=== PATIENT | female | born 1945 | race Caucasian/White ===

== ENCOUNTER → 2017-12-26 | Outpatient (CLI) | payer MEDICARE | LOC: M WUC 12:08 | DX: J11.1 Influenza due to unidentified influenza virus with other respiratory manifestations (principal); J20.9 Acute bronchitis, unspecified | CPT/HCPCS: 71046 ==

== ENCOUNTER 2018-01-03 08:40 | Inpatient (IN) | payer MEDICARE ==
[2018-01-03] MEDS: SENOKOT S TAB PO ×2 (09:00→21:28)
[2018-01-03] MEDS: LISINOPRIL 20 MG TAB PO ×2 (09:00→21:00)
[2018-01-03 10:50] LABS: BASO % 0.1 % (0.0-1.0); EOS # 0.3 10^3/uL (0.0-0.50); HEMATOCRIT 34.9 % (36.0-47.0); HEMOGLOBIN 11.1 g/dl (12.0-16.0); IMMATURE GRANULOCYTE % 0.6 % (0-3.0); LYMPH % 7.5 % (24.0-44.0); MEAN CORPUSCULAR HEMOGLOBIN 30.7 pg (27.0-33.0); MEAN CORPUSCULAR HGB CONC 31.8 g/dl (32.0-36.5); MEAN CORPUSCULAR VOLUME 96.7 fl (80.0-96.0); MONO # 0.6 10^3/uL (0.0-0.8); MONO % 4.7 % (0.0-5.0); NEUTROPHILS # 11.6 10^3/uL (1.8-7.7); NEUTROPHILS % 85.1 % (36.0-66.0); PLATELET COUNT, AUTOMATED 168 10^3/uL (150-450); RED BLOOD COUNT 3.61 10^6/uL (4.00-5.40); RED CELL DISTRIBUTION WIDTH 13.3 % (11.5-14.5); WHITE BLOOD COUNT 13.7 10^3/uL (4.0-10.0)
[2018-01-03] MEDS: ACETAMINOPHEN TAB 650MG DOSE (2X325MG) PO (10:51)
[2018-01-03 11:02] LABS: ANION GAP 9 MEQ/L (8-16); BLOOD UREA NITROGEN 15 MG/DL (7-18); CALCIUM LEVEL 8.4 MG/DL (8.8-10.2); CARBON DIOXIDE LEVEL 29 MEQ/L (21-32); CHLORIDE LEVEL 104 MEQ/L (98-107); CREATININE FOR GFR 0.92 MG/DL (0.55-1.30); GLOMERULAR FILTRATION RATE > 60.0 (>39); GLUCOSE, FASTING 116 MG/DL (70-100); SODIUM LEVEL 142 MEQ/L (136-145)
[2018-01-03] MEDS: LevoFLOXacin IV 750 MG in APPROPRIATE DILUENT 1 EA IV (11:47)
[2018-01-03] MEDS ORDERED: ACETAMINOPHEN TAB 650MG DOSE (2X325MG) PO (13:15)
[2018-01-03] MEDS ORDERED: ALBUTEROL SULFATE 2.5 MG/0.5 ML INH NEB SOLN INH (13:15)
[2018-01-03] MEDS ORDERED: ONDANSETRON 4MG/2ML VIAL (J2405) IV (13:15)
[2018-01-03] MEDS: HYDROmorphone HCL 1 MG/ML SYRINGE (J1170) IV (13:30)
[2018-01-03] MEDS: PERCOCET 5MG/325MG TAB PO ×3 (13:31→21:29)
[2018-01-03] MEDS: AMITRIPTYLINE 25 MG TAB PO (16:46)
[2018-01-03] MEDS: GABAPENTIN 300 MG CAP PO ×2 (16:46→21:28)
[2018-01-03] MEDS: LEVOTHYROXINE 25MCG TABLET (0.025MG) PO (16:46)
[2018-01-03] MEDS: OMEPRAZOLE 20 MG CAP PO (16:46)
[2018-01-03] MEDS: ASPIRIN 81 MG ENTERIC TAB PO (16:46)
[2018-01-03] MEDS: FERROUS SULFATE 325MG TAB PO (16:46)
[2018-01-03] MEDS: METOPROLOL SUCC (TopROL XL) 50MG **XL** TAB PO (16:47)
[2018-01-03] MEDS: DULoxetine 30 MG CAP (CYMBALTA) PO (16:47)
[2018-01-03] MEDS: ATORVASTATIN 20 MG TAB PO (16:47)
[2018-01-03] MEDS: ENOXAPARIN 40 MG/0.4 ML SYRINGE (J1650) SC (16:48)
[2018-01-03] MEDS: MEROPENEM INJ 1 GM in APPROPRIATE DILUENT 1 EA IV (16:49)
[2018-01-03] MEDS: IPRATROPIUM 0.5MG/ALBUTEROL 2.5MG INH SOL UD 3ML (DUONEB)(J7620) NEB (20:00)
[2018-01-04] MEDS: PERCOCET 5MG/325MG TAB PO ×4 (02:29→21:08)
[2018-01-04] MEDS: MEROPENEM INJ 1 GM in APPROPRIATE DILUENT 1 EA IV ×3 (02:30→18:00)
[2018-01-04] MEDS: LEVOTHYROXINE 25MCG TABLET (0.025MG) PO (06:15)
[2018-01-04] MEDS: IPRATROPIUM 0.5MG/ALBUTEROL 2.5MG INH SOL UD 3ML (DUONEB)(J7620) NEB ×3 (08:00→20:23)
[2018-01-04] MEDS: OMEPRAZOLE 20 MG CAP PO (09:00)
[2018-01-04] MEDS: METOPROLOL SUCC (TopROL XL) 50MG **XL** TAB PO (09:00)
[2018-01-04] MEDS: ASPIRIN 81 MG ENTERIC TAB PO (09:00)
[2018-01-04] MEDS: ATORVASTATIN 20 MG TAB PO (09:00)
[2018-01-04] MEDS: AMITRIPTYLINE 25 MG TAB PO (09:00)
[2018-01-04] MEDS: ENOXAPARIN 40 MG/0.4 ML SYRINGE (J1650) SC (09:00)
[2018-01-04] MEDS: GABAPENTIN 300 MG CAP PO ×3 (09:00→21:07)
[2018-01-04] MEDS: FERROUS SULFATE 325MG TAB PO (09:00)
[2018-01-04] MEDS: SENOKOT S TAB PO ×2 (09:00→21:09)
[2018-01-04] MEDS: LISINOPRIL 20 MG TAB PO ×2 (09:00→21:09)
[2018-01-04] MEDS: DULoxetine 30 MG CAP (CYMBALTA) PO (09:00)
[2018-01-04] MEDS ORDERED: LevoFLOXacin IV 750 MG in APPROPRIATE DILUENT 1 EA IV (12:00)
[2018-01-04] MEDS: KETOROLAC 30 MG/ML VIAL (J1885) IV (21:07)
[2018-01-04] MEDS: guaiFENesin DM LIQ 10ML UD PO (22:53)
[2018-01-05] MEDS: MEROPENEM INJ 1 GM in APPROPRIATE DILUENT 1 EA IV ×3 (01:36→17:34)
[2018-01-05] MEDS: NORCO, ANEXSIA 5/325MG TABLET (HYDROcodone/ACETAMINOPHEN) PO ×4 (01:37→21:36)
[2018-01-05] MEDS: LEVOTHYROXINE 25MCG TABLET (0.025MG) PO (06:08)
[2018-01-05] MEDS: PERCOCET 5MG/325MG TAB PO (06:09)
[2018-01-05 06:14] LABS: HEMATOCRIT 30.7 % (36.0-47.0); HEMOGLOBIN 9.7 g/dl (12.0-16.0); MEAN CORPUSCULAR HEMOGLOBIN 30.6 pg (27.0-33.0); MEAN CORPUSCULAR HGB CONC 31.6 g/dl (32.0-36.5); MEAN CORPUSCULAR VOLUME 96.8 fl (80.0-96.0); PLATELET COUNT, AUTOMATED 137 10^3/uL (150-450); RED BLOOD COUNT 3.17 10^6/uL (4.00-5.40); RED CELL DISTRIBUTION WIDTH 13.2 % (11.5-14.5); WHITE BLOOD COUNT 4.4 10^3/uL (4.0-10.0)
[2018-01-05 06:47] LABS: ANION GAP 6 MEQ/L (8-16); BLOOD UREA NITROGEN 17 MG/DL (7-18); CALCIUM LEVEL 8.5 MG/DL (8.8-10.2); CARBON DIOXIDE LEVEL 30 MEQ/L (21-32); CHLORIDE LEVEL 108 MEQ/L (98-107); CREATININE FOR GFR 1.02 MG/DL (0.55-1.30); GLOMERULAR FILTRATION RATE 56.9 (>39); GLUCOSE, FASTING 98 MG/DL (70-100); POTASSIUM SERUM 3.8 MEQ/L (3.5-5.1); SODIUM LEVEL 144 MEQ/L (136-145)
[2018-01-05] MEDS: IPRATROPIUM 0.5MG/ALBUTEROL 2.5MG INH SOL UD 3ML (DUONEB)(J7620) NEB ×4 (07:39→20:07)
[2018-01-05] MEDS: AMITRIPTYLINE 25 MG TAB PO (09:28)
[2018-01-05] MEDS: DULoxetine 30 MG CAP (CYMBALTA) PO (09:28)
[2018-01-05] MEDS: ASPIRIN 81 MG ENTERIC TAB PO (09:28)
[2018-01-05] MEDS: FERROUS SULFATE 325MG TAB PO (09:29)
[2018-01-05] MEDS: OMEPRAZOLE 20 MG CAP PO (09:29)
[2018-01-05] MEDS: ATORVASTATIN 20 MG TAB PO (09:29)
[2018-01-05] MEDS: GABAPENTIN 300 MG CAP PO ×3 (09:29→20:19)
[2018-01-05] MEDS: LISINOPRIL 20 MG TAB PO ×2 (09:33→20:20)
[2018-01-05] MEDS: SENOKOT S TAB PO ×2 (09:33→20:20)
[2018-01-05] MEDS: METOPROLOL SUCC (TopROL XL) 50MG **XL** TAB PO (09:35)
[2018-01-05] MEDS: ENOXAPARIN 40 MG/0.4 ML SYRINGE (J1650) SC (09:35)
[2018-01-05] MEDS: KETOROLAC 30 MG/ML VIAL (J1885) IV ×2 (09:37→20:20)
[2018-01-05] MEDS: BENZONATATE 100 MG CAP PO ×2 (13:28→21:30)
[2018-01-06] MEDS: MEROPENEM INJ 1 GM in APPROPRIATE DILUENT 1 EA IV ×3 (01:42→17:49)
[2018-01-06] MEDS: NORCO, ANEXSIA 5/325MG TABLET (HYDROcodone/ACETAMINOPHEN) PO ×5 (01:47→20:33)
[2018-01-06] MEDS: BENZONATATE 100 MG CAP PO ×2 (05:47→15:16)
[2018-01-06] MEDS: LEVOTHYROXINE 25MCG TABLET (0.025MG) PO (05:47)
[2018-01-06 06:46] LABS: HEMOGLOBIN 9.8 g/dl (12.0-16.0); MEAN CORPUSCULAR HEMOGLOBIN 30.7 pg (27.0-33.0); MEAN CORPUSCULAR HGB CONC 31.6 g/dl (32.0-36.5); MEAN CORPUSCULAR VOLUME 97.2 fl (80.0-96.0); PLATELET COUNT, AUTOMATED 140 10^3/uL (150-450); RED BLOOD COUNT 3.19 10^6/uL (4.00-5.40); RED CELL DISTRIBUTION WIDTH 13.2 % (11.5-14.5); WHITE BLOOD COUNT 3.5 10^3/uL (4.0-10.0)
[2018-01-06 06:55] LABS: ANION GAP 3 MEQ/L (8-16); BLOOD UREA NITROGEN 18 MG/DL (7-18); CALCIUM LEVEL 8.4 MG/DL (8.8-10.2); CARBON DIOXIDE LEVEL 33 MEQ/L (21-32); CHLORIDE LEVEL 109 MEQ/L (98-107); CREATININE FOR GFR 0.82 MG/DL (0.55-1.30); GLOMERULAR FILTRATION RATE > 60.0 (>39); GLUCOSE, FASTING 87 MG/DL (70-100); POTASSIUM SERUM 4.5 MEQ/L (3.5-5.1); SODIUM LEVEL 145 MEQ/L (136-145)
[2018-01-06] MEDS: IPRATROPIUM 0.5MG/ALBUTEROL 2.5MG INH SOL UD 3ML (DUONEB)(J7620) NEB ×4 (07:26→20:00)
[2018-01-06] MEDS: ASPIRIN 81 MG ENTERIC TAB PO (09:23)
[2018-01-06] MEDS: METOPROLOL SUCC (TopROL XL) 50MG **XL** TAB PO (09:23)
[2018-01-06] MEDS: ENOXAPARIN 40 MG/0.4 ML SYRINGE (J1650) SC (09:23)
[2018-01-06] MEDS: SENOKOT S TAB PO ×2 (09:23→20:33)
[2018-01-06] MEDS: LISINOPRIL 20 MG TAB PO ×2 (09:23→20:34)
[2018-01-06] MEDS: FERROUS SULFATE 325MG TAB PO (09:24)
[2018-01-06] MEDS: OMEPRAZOLE 20 MG CAP PO (09:24)
[2018-01-06] MEDS: GABAPENTIN 300 MG CAP PO ×3 (09:24→20:31)
[2018-01-06] MEDS: AMITRIPTYLINE 25 MG TAB PO (09:24)
[2018-01-06] MEDS: ATORVASTATIN 20 MG TAB PO (09:24)
[2018-01-06] MEDS: DULoxetine 30 MG CAP (CYMBALTA) PO (09:24)
[2018-01-06] MEDS: KETOROLAC 30 MG/ML VIAL (J1885) IV (23:45)
[2018-01-07] MEDS: NORCO, ANEXSIA 5/325MG TABLET (HYDROcodone/ACETAMINOPHEN) PO ×5 (01:02→23:27)
[2018-01-07] MEDS: MEROPENEM INJ 1 GM in APPROPRIATE DILUENT 1 EA IV ×3 (01:03→16:51)
[2018-01-07] MEDS: LEVOTHYROXINE 25MCG TABLET (0.025MG) PO (06:18)
[2018-01-07 06:29] LABS: HEMATOCRIT 29.7 % (36.0-47.0); HEMOGLOBIN 9.6 g/dl (12.0-16.0); MEAN CORPUSCULAR HEMOGLOBIN 31.4 pg (27.0-33.0); MEAN CORPUSCULAR HGB CONC 32.3 g/dl (32.0-36.5); MEAN CORPUSCULAR VOLUME 97.1 fl (80.0-96.0); PLATELET COUNT, AUTOMATED 148 10^3/uL (150-450); RED BLOOD COUNT 3.06 10^6/uL (4.00-5.40); RED CELL DISTRIBUTION WIDTH 13.2 % (11.5-14.5); WHITE BLOOD COUNT 3.9 10^3/uL (4.0-10.0)
[2018-01-07 06:48] LABS: ANION GAP 5 MEQ/L (8-16); BLOOD UREA NITROGEN 16 MG/DL (7-18); CALCIUM LEVEL 8.3 MG/DL (8.8-10.2); CARBON DIOXIDE LEVEL 32 MEQ/L (21-32); CHLORIDE LEVEL 107 MEQ/L (98-107); CREATININE FOR GFR 0.82 MG/DL (0.55-1.30); GLOMERULAR FILTRATION RATE > 60.0 (>39); GLUCOSE, FASTING 78 MG/DL (70-100); POTASSIUM SERUM 4.3 MEQ/L (3.5-5.1); SODIUM LEVEL 144 MEQ/L (136-145)
[2018-01-07] MEDS: IPRATROPIUM 0.5MG/ALBUTEROL 2.5MG INH SOL UD 3ML (DUONEB)(J7620) NEB ×4 (08:00→21:23)
[2018-01-07] MEDS: ATORVASTATIN 20 MG TAB PO (09:09)
[2018-01-07] MEDS: METOPROLOL SUCC (TopROL XL) 50MG **XL** TAB PO (09:09)
[2018-01-07] MEDS: ASPIRIN 81 MG ENTERIC TAB PO (09:10)
[2018-01-07] MEDS: GABAPENTIN 300 MG CAP PO ×3 (09:10→21:45)
[2018-01-07] MEDS: OMEPRAZOLE 20 MG CAP PO (09:10)
[2018-01-07] MEDS: DULoxetine 30 MG CAP (CYMBALTA) PO (09:11)
[2018-01-07] MEDS: SENOKOT S TAB PO ×2 (09:11→21:48)
[2018-01-07] MEDS: FERROUS SULFATE 325MG TAB PO (09:11)
[2018-01-07] MEDS: ENOXAPARIN 40 MG/0.4 ML SYRINGE (J1650) SC (09:11)
[2018-01-07] MEDS: AMITRIPTYLINE 25 MG TAB PO (09:11)
[2018-01-07] MEDS: LISINOPRIL 20 MG TAB PO ×2 (09:11→21:48)
[2018-01-08] MEDS: guaiFENesin DM LIQ 10ML UD PO (01:00)
[2018-01-08] MEDS: BENZONATATE 100 MG CAP PO (01:00)
[2018-01-08] MEDS: MEROPENEM INJ 1 GM in APPROPRIATE DILUENT 1 EA IV ×2 (01:01→10:05)
[2018-01-08] MEDS: NORCO, ANEXSIA 5/325MG TABLET (HYDROcodone/ACETAMINOPHEN) PO (03:31)
[2018-01-08 06:22] LABS: HEMATOCRIT 32.6 % (36.0-47.0); HEMOGLOBIN 10.4 g/dl (12.0-16.0); MEAN CORPUSCULAR HEMOGLOBIN 30.7 pg (27.0-33.0); MEAN CORPUSCULAR HGB CONC 31.9 g/dl (32.0-36.5); MEAN CORPUSCULAR VOLUME 96.2 fl (80.0-96.0); PLATELET COUNT, AUTOMATED 150 10^3/uL (150-450); RED BLOOD COUNT 3.39 10^6/uL (4.00-5.40)
[2018-01-08 06:42] LABS: ANION GAP 4 MEQ/L (8-16); BLOOD UREA NITROGEN 15 MG/DL (7-18); CARBON DIOXIDE LEVEL 34 MEQ/L (21-32); CHLORIDE LEVEL 104 MEQ/L (98-107); CREATININE FOR GFR 0.83 MG/DL (0.55-1.30); GLOMERULAR FILTRATION RATE > 60.0 (>39); GLUCOSE, FASTING 91 MG/DL (70-100); POTASSIUM SERUM 4.7 MEQ/L (3.5-5.1); SODIUM LEVEL 142 MEQ/L (136-145)
[2018-01-08] MEDS: LEVOTHYROXINE 25MCG TABLET (0.025MG) PO (06:52)
[2018-01-08] MEDS: IPRATROPIUM 0.5MG/ALBUTEROL 2.5MG INH SOL UD 3ML (DUONEB)(J7620) NEB (08:00)
[2018-01-08] MEDS: ATORVASTATIN 20 MG TAB PO (10:05)
[2018-01-08] MEDS: GABAPENTIN 300 MG CAP PO (10:05)
[2018-01-08] MEDS: OMEPRAZOLE 20 MG CAP PO (10:06)
[2018-01-08] MEDS: LISINOPRIL 20 MG TAB PO (10:06)
[2018-01-08] MEDS: METOPROLOL SUCC (TopROL XL) 50MG **XL** TAB PO (10:06)
[2018-01-08] MEDS: FERROUS SULFATE 325MG TAB PO (10:07)
[2018-01-08] MEDS: ASPIRIN 81 MG ENTERIC TAB PO (10:07)
[2018-01-08] MEDS: DULoxetine 30 MG CAP (CYMBALTA) PO (10:07)
[2018-01-08] MEDS: AMITRIPTYLINE 25 MG TAB PO (10:08)
[2018-01-08] MEDS: SENOKOT S TAB PO (10:08)
[2018-01-08] MEDS: hydroCHLOROthiazide 12.5 MG CAPSULE PO (10:08)
[2018-01-08] MEDS: ENOXAPARIN 40 MG/0.4 ML SYRINGE (J1650) SC (10:08)
== END 2018-01-08 11:38 | disposition home or self-care (01) | DRG 195 ==
LOC: M ED 08:40 → M ED INP 15:29 → M MSPAV 15:32
DX: J18.9 Pneumonia, unspecified organism (principal); B97.4 Respiratory syncytial virus as the cause of diseases classified elsewhere; I10 Essential (primary) hypertension; M79.7 Fibromyalgia; Z90.710 Acquired absence of both cervix and uterus; Z96.652 Presence of left artificial knee joint; Z79.82 Long term (current) use of aspirin; Z79.899 Other long term (current) drug therapy; Z88.0 Allergy status to penicillin; Z88.1 Allergy status to other antibiotic agents; Z88.2 Allergy status to sulfonamides; Z88.5 Allergy status to narcotic agent

== ENCOUNTER → 2018-01-16 | Outpatient (REF) | payer MEDICARE ==
[2018-01-16 13:18] LABS: BASO # 0.1 10^3/uL (0.0-0.2); BASO % 0.8 % (0.0-1.0); EOS # 2.4 10^3/uL (0.0-0.50); HEMATOCRIT 39.8 % (36.0-47.0); HEMOGLOBIN 12.6 g/dl (12.0-16.0); IMMATURE GRANULOCYTE % 1.3 % (0-3.0); LYMPH # 1.8 10^3/uL (1.5-4.5); LYMPH % 19.6 % (24.0-44.0); MEAN CORPUSCULAR HEMOGLOBIN 31.1 pg (27.0-33.0); MEAN CORPUSCULAR HGB CONC 31.7 g/dl (32.0-36.5); MEAN CORPUSCULAR VOLUME 98.3 fl (80.0-96.0); MONO # 0.6 10^3/uL (0.0-0.8); MONO % 6.5 % (0.0-5.0); NEUTROPHILS # 4.2 10^3/uL (1.8-7.7); NEUTROPHILS % 45.4 % (36.0-66.0); PLATELET COUNT, AUTOMATED 270 10^3/uL (150-450); RED BLOOD COUNT 4.05 10^6/uL (4.00-5.40); RED CELL DISTRIBUTION WIDTH 13.5 % (11.5-14.5); WHITE BLOOD COUNT 9.1 10^3/uL (4.0-10.0)
[2018-01-16 13:50] LABS: ADD MANUAL DIFFER NO; DIFF SLIDE NUMBER 179; EOS % 26.4 % (0.0-3.0); POSITIVE DIFF POS FLAG
[2018-01-16 13:59] LABS: ALBUMIN 3.9 GM/DL (3.2-5.2); ALBUMIN/GLOBULIN RATIO 1.22 (1.00-1.93); ALKALINE PHOSPHATASE 121 U/L (45-117); ALT/SGPT 33 U/L (12-78); ANION GAP 4 MEQ/L (8-16); AST/SGOT 22 U/L (7-37); BILIRUBIN,TOTAL 0.5 MG/DL (0.2-1.0); BLOOD UREA NITROGEN 18 MG/DL (7-18); CALCIUM LEVEL 8.9 MG/DL (8.8-10.2); CARBON DIOXIDE LEVEL 33 MEQ/L (21-32); CHLORIDE LEVEL 104 MEQ/L (98-107); CHOLESTEROL LEVEL 162 MG/DL (<200); CHOLESTEROL RISK RATIO 4.153 (<5); CREATININE FOR GFR 0.94 MG/DL (0.55-1.30); FREE T4 0.99 NG/DL (0.76-1.46); GLOMERULAR FILTRATION RATE > 60.0 (>39); GLUCOSE, FASTING 89 MG/DL (70-100); HDL CHOLESTEROL 39 MG/DL (>40); IRON (FE) 114 UG/DL (50-170); LDL CHOLESTEROL 81.2 MG/DL (<100); NON-HDL-C 123 MG/DL; PERCENT SATURATION 38.4 % (13.2-45.0); POTASSIUM SERUM 4.4 MEQ/L (3.5-5.1); SODIUM LEVEL 141 MEQ/L (136-145); TOTAL IRON BINDING CAPACITY 297 UG/DL (250-450); TOTAL PROTEIN 7.1 GM/DL (6.4-8.2); TRIGLYCERIDES LEVEL 209 MG/DL (<150)
== END ==
LOC: M SFHCPLAZ 10:48
DX: Z00.00 Encounter for general adult medical examination without abnormal findings (principal); D50.9 Iron deficiency anemia, unspecified; E78.5 Hyperlipidemia, unspecified; I10 Essential (primary) hypertension; E03.9 Hypothyroidism, unspecified
CPT/HCPCS: 83550

== ENCOUNTER → 2018-01-20 | Outpatient (CLI) | payer MEDICARE | LOC: M WHC 12:52 | DX: Z12.31 Encounter for screening mammogram for malignant neoplasm of breast (principal); Z78.0 Asymptomatic menopausal state | CPT/HCPCS: 77067 ==

== ENCOUNTER → 2018-01-30 | Outpatient (REF) | payer MEDICARE ==
[2018-01-30 16:11] LABS: MALB URINE SIEMENS 36.8 MG/L; MAU/CREAT RATIO 18.9 MCG/MG (0.0-30.0)
== END ==
LOC: M SFHCPLAZ 15:29
DX: Z12.31 Encounter for screening mammogram for malignant neoplasm of breast (principal); E78.5 Hyperlipidemia, unspecified; G43.109 Migraine with aura, not intractable, without status migrainosus; N18.3 Chronic kidney disease, stage 3 (moderate); I12.9 Hypertensive chronic kidney disease with stage 1 through stage 4 chronic kidney disease, or unspecified chronic kidney disease; D50.9 Iron deficiency anemia, unspecified; J44.9 Chronic obstructive pulmonary disease, unspecified; M79.7 Fibromyalgia; E03.9 Hypothyroidism, unspecified
CPT/HCPCS: 82043

== ENCOUNTER → 2018-03-03 | Outpatient (REF) | payer MEDICARE ==
[2018-03-03 15:39] LABS: BASO % 0.4 % (0.0-1.0); EOS # 0.6 10^3/uL (0.0-0.50); EOS % 6.1 % (0.0-3.0); HEMOGLOBIN 11.2 g/dl (12.0-15.5); IMMATURE GRANULOCYTE % 0.3 % (0-3.0); LYMPH # 1.3 10^3/uL (1.5-4.5); LYMPH % 14.6 % (24.0-44.0); MEAN CORPUSCULAR HEMOGLOBIN 30.9 pg (27.0-33.0); MEAN CORPUSCULAR VOLUME 96.7 fl (80.0-96.0); MONO # 0.7 10^3/uL (0.0-0.8); MONO % 8.1 % (0.0-5.0); NEUTROPHILS # 6.4 10^3/uL (1.8-7.7); NEUTROPHILS % 70.5 % (36.0-66.0); PLATELET COUNT, AUTOMATED 202 10^3/uL (150-450); RED BLOOD COUNT 3.62 10^6/uL (4.00-5.40); RED CELL DISTRIBUTION WIDTH 12.6 % (11.5-14.5)
[2018-03-03 16:03] LABS: ALBUMIN 3.8 GM/DL (3.2-5.2); ALBUMIN/GLOBULIN RATIO 1.19 (1.00-1.93); ALKALINE PHOSPHATASE 101 U/L (45-117); ALT/SGPT 28 U/L (12-78); ANION GAP 7 MEQ/L (8-16); AST/SGOT 27 U/L (7-37); BILIRUBIN,TOTAL 0.5 MG/DL (0.2-1.0); BLOOD UREA NITROGEN 36 MG/DL (7-18); CALCIUM LEVEL 9.4 MG/DL (8.8-10.2); CARBON DIOXIDE LEVEL 30 MEQ/L (21-32); CHLORIDE LEVEL 105 MEQ/L (98-107); CREATININE FOR GFR 1.37 MG/DL (0.55-1.30); GLOMERULAR FILTRATION RATE 40.5 (>39); GLUCOSE, FASTING 81 MG/DL (70-100); POTASSIUM SERUM 3.6 MEQ/L (3.5-5.1); SODIUM LEVEL 142 MEQ/L (136-145)
== END ==
LOC: M SFHCPLAZ 14:03
DX: J06.9 Acute upper respiratory infection, unspecified (principal)
CPT/HCPCS: 80053

== ENCOUNTER → 2018-03-03 | Outpatient (CLI) | payer MEDICARE | LOC: M SMT 14:29 | DX: J06.9 Acute upper respiratory infection, unspecified (principal) | CPT/HCPCS: 71046; 80053 ==

== ENCOUNTER → 2018-04-14 | Outpatient (REF) | payer MEDICARE ==
[2018-04-14 12:43] LABS: BASO % 0.2 % (0.0-1.0); EOS # 0.3 10^3/uL (0.0-0.50); EOS % 3.2 % (0.0-3.0); HEMATOCRIT 38.8 % (36.0-47.0); HEMOGLOBIN 12.5 g/dl (12.0-15.5); IMMATURE GRANULOCYTE % 0.5 % (0-3.0); LYMPH # 1.4 10^3/uL (1.5-4.5); MEAN CORPUSCULAR HEMOGLOBIN 30.9 pg (27.0-33.0); MEAN CORPUSCULAR HGB CONC 32.2 g/dl (32.0-36.5); MONO # 0.8 10^3/uL (0.0-0.8); MONO % 7.7 % (0.0-5.0); NEUTROPHILS # 7.3 10^3/uL (1.8-7.7); NEUTROPHILS % 74.4 % (36.0-66.0); PLATELET COUNT, AUTOMATED 173 10^3/uL (150-450); RED BLOOD COUNT 4.04 10^6/uL (4.00-5.40); RED CELL DISTRIBUTION WIDTH 12.6 % (11.5-14.5); WHITE BLOOD COUNT 9.8 10^3/uL (4.0-10.0)
[2018-04-14 13:27] LABS: ALBUMIN 3.4 GM/DL (3.2-5.2); ALKALINE PHOSPHATASE 127 U/L (45-117); ALT/SGPT 25 U/L (12-78); ANION GAP 9 MEQ/L (8-16); AST/SGOT 25 U/L (7-37); BILIRUBIN,TOTAL 0.6 MG/DL (0.2-1.0); BLOOD UREA NITROGEN 22 MG/DL (7-18); CALCIUM LEVEL 8.9 MG/DL (8.8-10.2); CARBON DIOXIDE LEVEL 32 MEQ/L (21-32); CHLORIDE LEVEL 103 MEQ/L (98-107); CREATININE FOR GFR 1.25 MG/DL (0.55-1.30); FREE T4 1.16 NG/DL (0.76-1.46); GLUCOSE, FASTING 114 MG/DL (70-100); POTASSIUM SERUM 3.3 MEQ/L (3.5-5.1); SODIUM LEVEL 144 MEQ/L (136-145); TOTAL PROTEIN 6.8 GM/DL (6.4-8.2)
== END ==
LOC: M SFHCPLAZ 08:57
DX: J44.9 Chronic obstructive pulmonary disease, unspecified (principal); D50.9 Iron deficiency anemia, unspecified; E78.5 Hyperlipidemia, unspecified; E03.9 Hypothyroidism, unspecified
CPT/HCPCS: 84443

== ENCOUNTER → 2018-04-20 | Outpatient (REF) | payer MEDICARE ==
[2018-04-20 18:45] LABS: ANION GAP 8 MEQ/L (8-16); BLOOD UREA NITROGEN 14 MG/DL (7-18); CARBON DIOXIDE LEVEL 32 MEQ/L (21-32); CHLORIDE LEVEL 105 MEQ/L (98-107); CREATININE FOR GFR 1.04 MG/DL (0.55-1.30); GLOMERULAR FILTRATION RATE 55.6 (>39); GLUCOSE, FASTING 83 MG/DL (70-100); POTASSIUM SERUM 3.9 MEQ/L (3.5-5.1); SODIUM LEVEL 145 MEQ/L (136-145)
== END ==
LOC: M SFHCPLAZ 15:53
DX: E87.6 Hypokalemia (principal)
CPT/HCPCS: 80048

== ENCOUNTER → 2018-11-23 | Outpatient (REF) | payer MEDICARE ==
[~2018-11-23] MED LIST: AMIT25TA PO; ASPI81TA85 PO; ATOR80TA59 PO; BEVE1AER INH; CART180C3 PO; CYMB60CA3 PO; FERR1TAB8 PO; HYDR12.55 PO; LEVA1TAB2 PO; LEVO25TA5 PO; LISI-538 PO; METO1TAB7 PO; METO37.5 PO; NEUR600T PO; NORC10TA21 PO; OMEP40CA2 PO; POTA99TA PO; SUMA100T2 PO
[2018-11-23 12:19] LABS: ALBUMIN 3.9 GM/DL (3.2-5.2); ALT/SGPT 27 U/L (12-78); BILIRUBIN,TOTAL 0.5 MG/DL (0.2-1.0); BLOOD UREA NITROGEN 27 MG/DL (7-18); CALCIUM LEVEL 8.8 MG/DL (8.8-10.2); CARBON DIOXIDE LEVEL 30 MEQ/L (21-32); CHLORIDE LEVEL 107 MEQ/L (98-107); CREATININE FOR GFR 0.94 MG/DL (0.55-1.30); FREE T4 0.95 NG/DL (0.76-1.46); GLOMERULAR FILTRATION RATE > 60.0 (>39); GLUCOSE, FASTING 99 MG/DL (70-100); POTASSIUM SERUM 4.1 MEQ/L (3.5-5.1); SODIUM LEVEL 145 MEQ/L (136-145); TOTAL PROTEIN 6.8 GM/DL (6.4-8.2)
== END ==
LOC: M SFHCPLAZ 08:46
PROVIDERS: ATTEND Nurse Practitioner Family
DX: E78.5 Hyperlipidemia, unspecified (principal); N18.3 Chronic kidney disease, stage 3 (moderate); E03.9 Hypothyroidism, unspecified

== ENCOUNTER → 2019-02-23 | Outpatient (CLI) | payer MEDICARE ==
[~2019-02-23] MED LIST changes: -NORC10TA21 PO; +NORC1TAB5 PO
[2019-02-23 20:19] LABS: CREATININE FOR GFR 1.01 MG/DL (0.55-1.30); GLOMERULAR FILTRATION RATE 57.4 (>39)
== END ==
LOC: M LRY 14:46
PROVIDERS: ATTEND Physician Assistant Surgical
DX: Z01.812 Encounter for preprocedural laboratory examination (principal)

== ENCOUNTER → 2019-02-26 | Outpatient (REF) | payer MEDICARE ==
[~2019-02-26] MED LIST changes: +CHOL50002 PO; +HM P99TA PO; +LISI40TA PO; +VITAE40CA PO
[2019-02-26 16:24] LABS: BASO % 0.6 % (0.0-1.0); EOS # 0.4 10^3/uL (0.0-0.50); EOS % 7.7 % (0.0-3.0); HEMATOCRIT 42.4 % (36.0-47.0); HEMOGLOBIN 13.7 g/dl (12.0-15.5); LYMPH # 1.7 10^3/uL (1.5-4.5); LYMPH % 35.3 % (24.0-44.0); MEAN CORPUSCULAR HEMOGLOBIN 31.6 pg (27.0-33.0); MEAN CORPUSCULAR HGB CONC 32.3 g/dl (32.0-36.5); MEAN CORPUSCULAR VOLUME 97.7 fl (80.0-96.0); MONO # 0.4 10^3/uL (0.0-0.8); MONO % 8.5 % (0.0-5.0); NEUTROPHILS # 2.4 10^3/uL (1.8-7.7); NEUTROPHILS % 47.7 % (36.0-66.0); PLATELET COUNT, AUTOMATED 186 10^3/uL (150-450); RED BLOOD COUNT 4.34 10^6/uL (4.00-5.40); WHITE BLOOD COUNT 4.9 10^3/uL (4.0-10.0)
[2019-02-26 16:32] LABS: ALBUMIN 4.4 GM/DL (3.2-5.2); BILIRUBIN,TOTAL 0.6 MG/DL (0.2-1.0); CALCIUM LEVEL 9.4 MG/DL (8.8-10.2); CREATININE FOR GFR 1.04 MG/DL (0.55-1.30); GLOMERULAR FILTRATION RATE 55.5 (>39); POTASSIUM SERUM 4.3 MEQ/L (3.5-5.1); TOTAL PROTEIN 6.9 GM/DL (6.4-8.2)
== END ==
LOC: M SFHCPLAZ 15:23
PROVIDERS: ATTEND Nurse Practitioner Family
DX: K92.1 Melena (principal)
CPT/HCPCS: 80053; 85025; G0463

== ENCOUNTER 2019-03-25 06:50 | Day surgery (SDC) | payer MEDICARE ==
[~2019-03-25] VITALS: Ht 170.2 cm; Wt 98.0 kg
[2019-03-25] MEDS ORDERED: NS 1,000 ML IV ONE (07:30)
[2019-03-25] MEDS ORDERED: fentaNYL 100 MCG/2 ML INJECTION (J3010) As Ordered ONE (08:08)
[2019-03-25] MEDS ORDERED: PROPOFOL 500 MG/50 ML VIAL As Ordered ONE (08:08)
[2019-03-25] MEDS ORDERED: LIDOCAINE 2% INJ 100 MG/5 ML SDV (FOR ANES.) As Ordered ONE (08:08)
--- NOTE | 2019-03-25 08:35 | ROOR ---
Patient Name: Mikki Nelson Procedure Date: 03/25/2019 8:06 AM Date of : 1945 Age: 73 Room: [facility] Gender: Female Note Status: Finalized Procedure: Upper GI endoscopy Indications: Dysphagia Providers: Negrito Zimmerman Jr, MD Referring MD: Monae Morales NP Requesting Provider: Medicines: Propofol per Anesthesia Complications: No immediate complications. Procedure: Pre-Anesthesia Assessment: - Prior to the procedure, a History and Physical was performed, and patient medications and allergies were reviewed. The patient is competent. The risks and benefits of the procedure and the sedation options and risks were discussed with the patient. All questions were answered and informed consent was obtained. Patient identification and proposed procedure were verified by the physician and the nurse in the pre-procedure area and in the procedure room. Mental Status Examination: alert and oriented. Airway Examination: normal oropharyngeal airway and neck mobility. Respiratory Examination: clear to auscultation. CV Examination: normal. ASA Grade Assessment: II - A patient with mild systemic disease. After reviewing the risks and benefits, the patient was deemed in satisfactory condition to undergo the procedure. The anesthesia plan was to use moderate sedation / analgesia (conscious sedation). Immediately prior to administration of medications, the patient was re-assessed for adequacy to receive sedatives. The heart rate, respiratory rate, oxygen saturations, blood pressure, adequacy of pulmonary ventilation, and response to care were monitored throughout the procedure. The physical status of the patient was re-assessed after the procedure. The Endoscope was introduced through the mouth, and advanced to the second part of duodenum. The upper GI endoscopy was accomplished without difficulty. The patient tolerated the procedure well. Findings: The upper third of the esophagus, middle third of the esophagus and lower third of the esophagus were normal. Scattered moderate inflammation characterized by congestion (edema), erythema and friability was found in the gastric antrum and in the prepyloric region of the stomach. Biopsies were taken with a cold forceps for histology. The cardia, gastric fundus, gastric body and pylorus were normal. The duodenal bulb, first portion of the duodenum and second portion of the duodenum were normal. Impression: - Normal upper third of esophagus, middle third of esophagus and lower third of esophagus. - Gastritis. Biopsied. - Normal cardia, gastric fundus, gastric body and pylorus. - Normal duodenal bulb, first portion of the duodenum and second portion of the duodenum. Recommendation: - Discharge patient to home (ambulatory). - Return to my office in 2 weeks. Negrito Zimmerman MD Negrito Zimmerman Jr, MD 03/25/2019 8:35:01 AM Electronically signed by Negrito Zimmerman Jr, MD Number of Addenda: 0 Note Initiated On: 03/25/2019 8:06 AM Estimated Blood Loss: Estimated blood loss: none.
--- NOTE | 2019-03-25 08:40 | ROOR ---
Patient Name: Mikki Nelson Procedure Date: 03/25/2019 8:07 AM Date of : 1945 Age: 73 Room: [facility] Gender: Female Note Status: Finalized Procedure: Colonoscopy Indications: High risk colon cancer surveillance: Personal history of colonic polyps Providers: Negrito Zimmerman Jr, MD Referring MD: Monae Morales NP Requesting Provider: Medicines: Propofol per Anesthesia Complications: No immediate complications. Procedure: Pre-Anesthesia Assessment: - Prior to the procedure, a History and Physical was performed, and patient medications and allergies were reviewed. The patient is competent. The risks and benefits of the procedure and the sedation options and risks were discussed with the patient. All questions were answered and informed consent was obtained. Patient identification and proposed procedure were verified by the physician and the nurse in the pre-procedure area and in the procedure room. Mental Status Examination: alert and oriented. Airway Examination: normal oropharyngeal airway and neck mobility. Respiratory Examination: clear to auscultation. CV Examination: normal. ASA Grade Assessment: II - A patient with mild systemic disease. After reviewing the risks and benefits, the patient was deemed in satisfactory condition to undergo the procedure. The anesthesia plan was to use moderate sedation / analgesia (conscious sedation). Immediately prior to administration of medications, the patient was re-assessed for adequacy to receive sedatives. The heart rate, respiratory rate, oxygen saturations, blood pressure, adequacy of pulmonary ventilation, and response to care were monitored throughout the procedure. The physical status of the patient was re-assessed after the procedure. The Colonoscope was introduced through the anus and advanced to the cecum, identified by appendiceal orifice and ileocecal valve. The colonoscopy was performed without difficulty. The patient tolerated the procedure well. The quality of the bowel preparation was adequate. Findings: The rectum, recto-sigmoid colon, descending colon, transverse colon, ascending colon and anastomosis appeared normal. Non-bleeding external and internal hemorrhoids were found during retroflexion. The hemorrhoids were Grade II (internal hemorrhoids that prolapse but reduce spontaneously) and Grade III (internal hemorrhoids that prolapse but require manual reduction). A diminutive polyp was found in the sigmoid colon. The polyp was removed with a cold snare. Resection was complete, but the polyp tissue was not retrieved. Impression: - The rectum, recto-sigmoid colon, descending colon, transverse colon, ascending colon and colonic anastomosis are normal. - Non-bleeding external and internal hemorrhoids. - One diminutive polyp in the sigmoid colon, removed with a cold snare. Complete resection. Polyp tissue not retrieved. Recommendation: - Discharge patient to home (ambulatory). - Return to my office in 3 weeks. Negrito Zimmerman MD Negrito Zimmerman Jr, MD 03/25/2019 8:39:54 AM Electronically signed by Negrito Zimmerman Jr, MD Number of Addenda: 0 Note Initiated On: 03/25/2019 8:07 AM Estimated Blood Loss: Estimated blood loss: none.
[2019-03-25 09:00] VITALS: BP 141/70
== END 2019-03-25 09:05 | disposition home or self-care (01) ==
LOC: M OPP 06:50
PROVIDERS: ATTEND Surgery
DX: K63.5 Polyp of colon (principal); K64.1 Second degree hemorrhoids; K64.2 Third degree hemorrhoids; K29.70 Gastritis, unspecified, without bleeding; R13.10 Dysphagia, unspecified; Z86.010 Personal history of colon polyps
CPT/HCPCS: 43239; 45385; 88305; J3010

== ENCOUNTER → 2019-04-10 | Outpatient (REF) ==
[~2019-04-10] MED LIST changes: +AZIT-12 PO; +BENZ-18 PO; +CEFD300CAP PO; +DILT180C78 PO; +GUAISYP5 PO; +LEVO500T3 PO; +LEVO50TA5 PO
[2019-04-10 13:57] LABS: ALBUMIN 4.1 GM/DL (3.2-5.2); BILIRUBIN,TOTAL 0.7 MG/DL (0.2-1.0); CALCIUM LEVEL 8.7 MG/DL (8.8-10.2); CREATININE FOR GFR 1.09 MG/DL (0.55-1.30); GLOMERULAR FILTRATION RATE 52.5 (>39); POTASSIUM SERUM 3.7 MEQ/L (3.5-5.1); TOTAL PROTEIN 7.3 GM/DL (6.4-8.2)
== END ==
LOC: M LAB REF 09:00
DX: Z00.00 Encounter for general adult medical examination without abnormal findings (principal)

== ENCOUNTER 2019-04-16 15:17 | Inpatient (IN) | payer MEDICARE ==
[~2019-04-16] VITALS: Ht 170.2 cm; Wt 99.3 kg
[~2019-04-16 15:17] MED LIST changes: -AZIT-12 PO; -BENZ-18 PO; -CEFD300CAP PO; -DILT180C78 PO; -GUAISYP5 PO; -LEVO500T3 PO; -LEVO50TA5 PO
[2019-04-16 15:56] LABS: VENOUS BASE EXCESS -0.6 (-2.0-2.0); VENOUS HCO3 27.1 MEQ/L (23.0-27.0); VENOUS O2 SATURATION 43.4 % (60.0-80.0); VENOUS PARTIAL PRESSURE CO2 58.2 mmHg (38.0-50.0); VENOUS PARTIAL PRESSURE O2 28.6 mmHg (30.0-50.0); VENOUS PH 7.286 UNITS (7.330-7.430); VENOUS STANDARD HCO3 22.8 MEQ/L; VENOUS TOTAL CO2 28.9 MEQ/L (24.0-28.0)
[2019-04-16 15:58] LABS: BASO % 0.5 % (0.0-1.0); EOS # 0.5 10^3/uL (0.0-0.50); EOS % 7.2 % (0.0-3.0); HEMATOCRIT 37.7 % (36.0-47.0); HEMOGLOBIN 12.2 g/dl (12.0-15.5); LYMPH % 29.5 % (24.0-44.0); MEAN CORPUSCULAR HEMOGLOBIN 31.7 pg (27.0-33.0); MEAN CORPUSCULAR HGB CONC 32.4 g/dl (32.0-36.5); MEAN CORPUSCULAR VOLUME 97.9 fl (80.0-96.0); MONO # 0.8 10^3/uL (0.0-0.8); MONO % 11.4 % (0.0-5.0); NEUTROPHILS # 3.4 10^3/uL (1.8-7.7); NEUTROPHILS % 50.6 % (36.0-66.0); PLATELET COUNT, AUTOMATED 183 10^3/uL (150-450); RED BLOOD COUNT 3.85 10^6/uL (4.00-5.40); WHITE BLOOD COUNT 6.6 10^3/uL (4.0-10.0)
[2019-04-16 16:10] LABS: INR 1.04; PROTHROMBIN TIME 13.7 SECONDS (12.1-14.4)
[2019-04-16] MEDS ORDERED: LEVO50TA5 PO (16:19)
[2019-04-16] MEDS ORDERED: DILT180C78 PO (16:19)
[2019-04-16] MEDS ORDERED: AZIT-12 PO (16:19)
[2019-04-16] MEDS ORDERED: LEVO500T3 PO (16:19)
--- NOTE | 2019-04-16 16:27 | REP ---
Oral chest x-ray: Single view. History: Dyspnea and cough. Comparison study: March 03, 2018. Findings: There is an oblique somewhat linear 5.8 x 2.3 cm opacity in the right infrahilar region consistent with atelectasis and/or infiltrate. Mass is not completely excluded. Follow-up films are recommended. The pleural angles are sharp. Lung siddiqui are otherwise clear. Heart is not enlarged. EKG electrodes are seen. Pulmonary vasculature is not increased. Impression: There is a fairly large opacity in the right infrahilar region most consistent with right lower lobe infiltrate and/or atelectasis. Follow-up films are recommended. Electronically Signed by Varghese Orozco MD 04/16/2019 04:45 P
[2019-04-16 16:29] LABS: ALBUMIN 3.7 GM/DL (3.2-5.2); ALT/SGPT 29 U/L (12-78); BILIRUBIN,DIRECT 0.2 MG/DL (0.0-0.2); BILIRUBIN,TOTAL 0.7 MG/DL (0.2-1.0); BLOOD UREA NITROGEN 24 MG/DL (7-18); CALCIUM LEVEL 8.4 MG/DL (8.8-10.2); CARBON DIOXIDE LEVEL 30 MEQ/L (21-32); CHLORIDE LEVEL 105 MEQ/L (98-107); CPK CREATINE PHOSPHOKINASE 120 U/L (26-192); CREATININE FOR GFR 1.46 MG/DL (0.55-1.30); GLOMERULAR FILTRATION RATE 37.5 (>39); GLUCOSE, FASTING 83 MG/DL (70-100); MB/CK RELATIVE INDEX 2.67 (< OR =4); POTASSIUM SERUM 3.9 MEQ/L (3.5-5.1); SODIUM LEVEL 141 MEQ/L (136-145); THYROXINE (T4) 11.5 UG/DL (4.5-12.0); TOTAL PROTEIN 6.8 GM/DL (6.4-8.2); TROPONIN I < 0.02 NG/ML (< 0.10)
[2019-04-16] MEDS ORDERED: NS 500 ML IV ONE (17:00)
[2019-04-16] MEDS ORDERED: NORCO, ANEXSIA 5/325MG TABLET (HYDROcodone/ACETAMINOPHEN) PO ONE (17:00)
--- NOTE | 2019-04-16 17:10 | HPEPDOC ---
[facility] Medical History & Physical Date of Admission April 16, 2019 Date of Service: April 16, 2019 Attending Physician: Stef Mallory MD History and Physical CHIEF COMPLAINT: shortness of breath, cough HISTORY OF PRESENT ILLNESS: 73 yo female sent by PCP for further evaluation and treatment of respiratory illness. History goes back to over one week ago, diagnosed with respiratory tract infection at [facility], and completed 10 day course of Levaquin 500 mg PO daily, last dose 04/13/13. Symptoms persisted, with no improvement, and was seen again in [facility], and prescribed azithromycin, received one dose - with outpatient follow up. PAST MEDICAL HISTORY: #Lingular pneumonia #HTN #CKDIII - follow with Dr. Greenwood in [place] #fibromyalgia/chronic pain - follow in [place] #hypothyroidism #sleep apnea, on O2, not CPAP #fatty liver disease #glaucoma PAST SURGICAL HISTORY: #appendectomy 1964 #left TKR 2009 #left wrist plate 2011 #bowel resection - ischemic colitis 2014 #hernia repairs 2016 SOCIAL HISTORY: Former smoker, quite over 28 years ago. Lives at home with who is a smoker, although she states he smokes outside. No history of alcohol or illicit drug abuse. ALLERGIES: Please see below REVIEW OF SYSTEMS: Negative except as per HPI HOME MEDICATIONS: Please see below. PHYSICAL EXAMINATION: VITAL SIGNS: See below GENERAL APPEARANCE: NAD, lying comfortably in bed, coughing a lot HEENT: NC/AT, EOMI, PERRL CARDIOVASCULAR: +S1S2, RRR, difficult to auscultate LUNGS: difficult to auscultate, excessive coughing ABDOMEN: soft, obese, NT, +BS LABORATORY DATA: See below. IMAGING: CXR = oblique somewhat linear 5.8 x 2.3 cm opacity in the right infrahilar region consistent with atelectasis and/or infiltrate. Mass is not completely excluded. Follow-up films are recommended. The pleural angles are sharp. Lung siddiqui are otherwise clear. Heart is not enlarged. EKG electrodes are seen. Pulmonary vasculature is not increased. MICROBIOLOGY: Please see below. ASSESSMENT: 73 yo female for persistent shortness of breath and cough, failing outpatient anti-microbial therapy - 10 days Levaquin 500 mg PO daily - last dose 04/13/19, complicated with multiple drug allergies #PNA - CXR shows right infrahilar opacity - infiltrate vs atelectasis; cannot exclude mass - sputum cultures/respiratory panel pending - IV ABx - cef/azithro; states she gets hives from penicillin, sulfa, erythromycin base and tetracycline; she states she has received Keflex in the past without issue - supplemental O2 as needed - IS/acapella #cannot exclude mass on CXR - CT chest pending #HTN - elevated - continue to monitor #fibromyalgia/chronic pain #hypothyroidism - continue thyroid replacement therapy #sleep apnea, on O2, not CPAP #fatty liver disease #glaucoma #REJI/CKDIII - check urinalysis #DVT prophylaxis - heparin SC Vital Signs Vital Signs Date Time Temp Pulse Resp B/P (MAP) Pulse Ox O2 Delivery O2 Flow Rate FiO2 04/16/19 16:55 16 04/16/19 15:58 04/16/19 15:17 97.2 88 96 Room Air Laboratory Data Labs 24H Laboratory Tests 2 04/16/19 15:44: Immature Granulocyte % (Auto) 0.8, White Blood Count 6.6, Red Blood Count 3.85L, Hemoglobin 12.2, Hematocrit 37.7, Mean Corpuscular Volume 97.9H, Mean Corpuscular Hemoglobin 31.7, Mean Corpuscular Hemoglobin Concent 32.4, Red Cell Distribution Width 12.4, Platelet Count 183, Neutrophils (%) (Auto) 50.6, Ly mphocytes (%) (Auto) 29.5, Monocytes (%) (Auto) 11.4H, Eosinophils (%) (Auto) 7.2H, Basophils (%) (Auto) 0.5, Neutrophils # (Auto) 3.4, Lymphocytes # (Auto) 2.0, Monocytes # (Auto) 0.8, Eosinophils # (Auto) 0.5, Basophils # (Auto) 0.0, Nucleated Red Blood Cells % (auto) 0.0, Prothrombin Time 13.7, Prothromb Time International Ratio 1.04, Blood Gas Bicarbonate Standard 22.8, Venous Blood pH 7.286L, Venous Blood Partial Pressure CO2 58.2H, Venous Blood Partial Pressure O2 28.6L, Venous Blood Total Carbon Dioxide 28.9H, Venous Blood HCO3 27.1H, Venous Blood Oxygen Saturation 43.4L, Venous Blood Base Excess -0.6, Anion Gap 6L, Glomerular Filtration Rate 37.5L, Calcium Level 8.4L, Aspartate Amino Transf (AST/SGOT) 24, Alanine Aminotransferase (ALT/SGPT) 29, Alkaline Phosphatase 108, Total Bilirubin 0.7, Direct Bilirubin 0.2, Total Creatine Kinase 120, Creatine Kinase MB 3.0, Creatine Kinase MB Relative Index 2.67, Troponin I < 0.02, Total Protein 6.8, Albumin 3.7, Albumin/Globulin Ratio 1.19, Thyroid Stimulating Hormone (TSH) 1.560, Thyroxine (T4) 11.5 04/16/19 15:45: Lactic Acid Level 0.9 CBC/BMP Laboratory Tests 04/16/19 15:44 Red Blood Count 3.85 L, Mean Corpuscular Volume 97.9 H, Mean Corpuscular Hemoglobin 31.7, Mean Corpuscular Hemoglobin Concent 32.4, Red Cell Distribution Width 12.4, Neutrophils (%) (Auto) 50.6, Lymphocytes (%) (Auto) 29.5, Monocytes (%) (Auto) 11.4 H, Eosinophils (%) (Auto) 7.2 H, Basophils (%) (Auto) 0.5, Neutrophils # (Auto) 3.4, Lymphocytes # (Auto) 2.0, Monocytes # (Auto) 0.8, Eosinophils # (Auto) 0.5, Basophils # (Auto) 0.0 Microbiology Microbiology 04/16/19 Blood Culture, Received Pending 04/16/19 Blood Culture, Received Pending 04/16/19 Gram Stain, Received Pending 04/16/19 Sputum Culture, Received Pending Home Medications Scheduled Aspirin (Aspir 81) 81 Mg Tab, 81 MG PO DAILY Atorvastatin Calcium (Atorvastatin Calcium) 80 Mg Tab, 80 MG PO DAILY Azithromycin (Azithromycin) 250 Mg Tablet, 250 MG PO DAILY TO TAKE X 5 DAYS. 4 DAY RX STILL AT PHARMACY. PATIENT STATES SHE HAD ONE DOSE LAST NIGHT. Cholecalciferol (Vitamin D3) (Vitamin D3) 5,000 Unit Capsule, 5,000 UNIT PO DAILY Diltiazem HCl (Cartia Xt) 180 Mg Cap.er.24h, 360 MG PO DAILY Diltiazem Hcl (Diltiazem 24Hr ER) 180 Mg Cap.er.24h, 180 MG PO QHS Duloxetine Hcl (Cymbalta) 60 Mg Cap, 60 MG PO DAILY Ferrous Sulfate (Ferrous Sulfate) 325 Mg Tab, 325 MG PO DAILY Gabapentin (Neurontin) 600 Mg Tab, 800 MG PO TID Hydrochlorothiazide (Hydrochlorothiazide) 12.5 Mg Tab, 12.5 MG PO 3XW FRIDAY, FRIDAY, AND FRIDAY Levofloxacin (Levofloxacin) 500 Mg Tablet, 500 MG PO DAILY STARTED ON 04/10/19 TO TAKE X 10 DAYS Levothyroxine Sodium (Levothyroxine Sodium) 50 Mcg Tablet, 50 MCG PO DAILY Lisinopril (Lisinopril) 20 Mg Tab, 20 MG PO QHS Lisinopril (Lisinopril) 40 Mg Tablet, 40 MG PO DAILY Metoprolol Succinate (Metoprolol Succinate) 50 Mg Tab, 75 MG PO DAILY Omeprazole (Omeprazole) 40 Mg Cap, 40 MG PO DAILY Potassium Gluconate (Potassium) 99 Mg Tablet, 99 MG PO DAILY Vitamin E (Dl,Tocopheryl Acet) (Vitamin E) 400 Unit Capsule, 400 UNIT PO DAILY Scheduled PRN Hydrocodone/Acetaminophen ([place] 10-325 Tablet) 1 Tab Tab, 1 TAB PO BID PRN for PAIN Sumatriptan Succinate (Sumatriptan Succinate) 100 Mg Tab, 100 MG PO PRN PRN for HEADACHE Allergies Coded Allergies: Penicillins (Verified Allergy, Intermediate, HIVES, 03/19/19) morphine (Verified Allergy, Intermediate, ITCHING, 03/19/19) tetracycline (Verified Allergy, Intermediate, HIVES, 03/19/19) Sulfa (Sulfonamide Antibiotics) (Verified Allergy, Unknown, HIVES, 03/25/19) erythromycin base (Verified Allergy, Unknown, HIVES, 03/25/19) ARNIE ADAMES MD April 16, 2019 17:10
--- NOTE | 2019-04-16 18:13 | REP ---
Clinical: Abnormal chest x-ray. Technique: Axial noncontrast images from the thoracic inlet to the upper abdomen with coronal and sagittal re-formations. Comparison: None. Findings: There is a moderate area of consolidation with air bronchograms involving the right lower lobe along with chronic bilateral bronchiectasis and minimal age-related interstitial changes. No effusion. No pneumothorax. Reactive mediastinal and right hilar adenopathy is appreciated. Mediastinum demonstrates normal thoracic aorta, pulmonary vasculature and heart/pericardium. No cardiomegaly or pericardial effusion. No evidence for thoracic aorta. Musculoskeletal structures are intact. Limited upper abdomen demonstrates I subtle and hypodense renal lesions possibly representing simple and complex cysts. Impression: 1. Moderate area of consolidation involving the right lower lobe with air bronchograms and reactive adenopathy. Findings likely represent acute pneumonia and follow-up to resolution is recommended. 2. Left renal lesions likely representing simple and complex cysts may be followed by outpatient ultrasound. Electronically Signed by Anam Sales MD 04/16/2019 06:04 P
[2019-04-16] MEDS: cefTRIAXone SOD 1 GM in D5W MINI-BAG PLUS 50 ML IV SCH (18:38)
[2019-04-16] MEDS: NORCO, ANEXSIA 5/325MG TABLET (HYDROcodone/ACETAMINOPHEN) PO PRN (19:56)
--- NOTE | 2019-04-16 20:00 | REP ---
Clinical: Increasing lower back pain. Technique: AP, lateral, bilateral oblique and coned-down views of the lumbosacral spine. Comparison: None. Findings: Age-related osteopenia and and suspected hemangiomas involving L3 and L1. No evidence for acute fracture / compression injury. Chronic advanced degenerative changes at L5-S1 includes endplate sclerosis, disc space narrowing, hypertrophic facet changes, osteophytosis and grade 1 anterolisthesis. Chronic spondylolysis cannot be excluded. Remainder of the examination demonstrates moderate multilevel degenerative changes including endplate sclerosis with mild disc space narrowing and facet arthropathy. Impression: 1. Osteopenia and degenerative changes as described above. 2. Hemangiomas involving L3 and L1. 3. No acute fracture / compression injury or subluxation. Electronically Signed by Anam Sales MD 04/16/2019 07:52 P
[2019-04-16] MEDS: AZITHROMYCIN INJ 500 MG, VIAL MATE ADAPTER 1 EACH in D5W 250 ML IV SCH (20:04)
[2019-04-16 21:00] VITALS: BP 179/78
[2019-04-16] MEDS: GABAPENTIN 400 MG CAP PO SCH (22:29)
[2019-04-16] MEDS: LISINOPRIL 20 MG TAB PO SCH (22:29)
[2019-04-16] MEDS: diltiaZEM **CD** 180 MG CAP PO SCH (22:30)
[2019-04-16] MEDS: HEPARIN SOD (PORCINE) 5000 UNITS/ML VIAL SQ SCH (22:30)
--- NOTE | 2019-04-16 22:32 | ECGEPIP ---
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
[2019-04-17] MEDS: NORCO, ANEXSIA 5/325MG TABLET (HYDROcodone/ACETAMINOPHEN) PO PRN ×4 (02:28→21:14)
[2019-04-17 05:37] LABS: BASO % 0.6 % (0.0-1.0); EOS # 0.4 10^3/uL (0.0-0.50); EOS % 7.5 % (0.0-3.0); HEMOGLOBIN 10.4 g/dl (12.0-15.5); LYMPH # 1.6 10^3/uL (1.5-4.5); LYMPH % 29.3 % (24.0-44.0); MEAN CORPUSCULAR HEMOGLOBIN 31.6 pg (27.0-33.0); MEAN CORPUSCULAR HGB CONC 32.5 g/dl (32.0-36.5); MEAN CORPUSCULAR VOLUME 97.3 fl (80.0-96.0); MONO # 0.7 10^3/uL (0.0-0.8); MONO % 12.9 % (0.0-5.0); NEUTROPHILS # 2.6 10^3/uL (1.8-7.7); NEUTROPHILS % 49.1 % (36.0-66.0); PLATELET COUNT, AUTOMATED 153 10^3/uL (150-450); RED BLOOD COUNT 3.29 10^6/uL (4.00-5.40); WHITE BLOOD COUNT 5.4 10^3/uL (4.0-10.0)
[2019-04-17 05:46] LABS: CALCIUM LEVEL 8.4 MG/DL (8.8-10.2); CREATININE FOR GFR 1.15 MG/DL (0.55-1.30); GLOMERULAR FILTRATION RATE 49.4 (>39); POTASSIUM SERUM 3.9 MEQ/L (3.5-5.1)
[2019-04-17 06:00] VITALS: BP 138/63
[2019-04-17] MEDS: LEVOTHYROXINE 50MCG TABLET (0.05MG) PO SCH (06:07)
[2019-04-17] MEDS: VITAMIN E 400 INTERNATIONAL UNITS CAP PO SCH (09:04)
[2019-04-17] MEDS: GABAPENTIN 400 MG CAP PO SCH ×3 (09:04→21:11)
[2019-04-17] MEDS: DULoxetine 30 MG CAP (CYMBALTA) PO SCH (09:04)
[2019-04-17] MEDS: LISINOPRIL 40 MG TAB PO SCH (09:04)
[2019-04-17] MEDS: OMEPRAZOLE 20 MG CAP PO SCH (09:04)
[2019-04-17] MEDS: METOPROLOL SUCC *XL* 25MG TAB (TopROL *XL*) PO SCH (09:06)
[2019-04-17] MEDS: FERROUS SULFATE 325MG TAB PO SCH (09:06)
[2019-04-17] MEDS: ASPIRIN 81 MG ENTERIC TAB PO SCH (09:06)
[2019-04-17] MEDS: HEPARIN SOD (PORCINE) 5000 UNITS/ML VIAL SQ SCH ×2 (09:07→21:11)
[2019-04-17] MEDS: ATORVASTATIN 20 MG TAB PO SCH (09:07)
[2019-04-17] MEDS: diltiaZEM **CD** 180 MG CAP PO SCH ×2 (09:33→21:12)
[2019-04-17 14:00] VITALS: BP 152/70
[2019-04-17] MEDS: BENZONATATE 100 MG CAP PO PRN (15:49)
[2019-04-17] MEDS: cefTRIAXone SOD 1 GM in D5W MINI-BAG PLUS 50 ML IV SCH (17:13)
--- NOTE | 2019-04-17 19:06 | IPNPDOC ---
Subjective Date Seen The patient was seen on 04/17/19. Subjective Chief Complaint/HPI Ms. Nelson has been plagued by coughing jags all day. She is requesting help with controlling them as well as some help getting to sleep as she can't sleep well from all of the coughing. Nursing reports the same things; mainly that her coughing is really bothering her. Constitutional: Reports: Weakness Pulmonary: Reports: Dyspnea, Cough Cardiovascular: Denies: Chest Pain, Palpitations Gastrointestinal: Reports: Nausea (from the coughing); Denies: Vomiting Objective Physical Examination General Exam: Positive: Alert, Cooperative (sitting up in bed coughing when I enter the room), Mild Distress (from coughing so much she can't really talk much) Eye Exam: Positive: Conjunctiva & lids normal; Negative: Sclera icteric ENT Exam: Positive: Mucous membr. moist/pink Neck Exam: Negative: Lymphadenopathy Chest Exam: Positive: Rhonchi, Wheezing, Diminished Heart Exam: Positive: Rate Normal, Normal S1, Normal S2; Negative: Murmurs Abdomen Exam: Positive: Normal bowel sounds, Soft; Negative: Tenderness Extremity Exam: Negative: Edema Psych Exam: Positive: Mood NL, Oriented x 3 Assessment /Plan Problems (1) Multilobar lung infiltrate Status: Acute Discussed With: Nurse, Patient Problem Specific Plan: Monitor Clinically Problem Text: On paper she looks like she is improving. She is very disturbed by the intense coughing jags she is having and they do look pretty uncomfortable. I had prescribed Tessalon earlier in the day but both the patient and nurse report that they don't think these helped much. I prescribed Robitussin DM liquid and Tussionex tabs. I asked nursing to use the Robitussin first as I'd prefer to not add more narcotics to her regimen. Continue current abx as I think we are on the right general course for her. (2) Insomnia due to medical condition Status: Acute Discussed With: Nurse, Patient Problem Specific Plan: Monitor Clinically Problem Text: She is asking for something for sleep. I am a little cautions about giving her something too sedating. I considered hydroxyzine, but it interact with the azithromycin she is currently taking. I will consider using Ambien, but will wait to see if she calls for it tonight. (3) Chronic kidney disease, stage III (moderate) Status: Chronic Response to Treatment: Stable, Improving Problem Text: Her renal fx has improved substantially from yesterday. She may be nearing her baseline now. (4) Hypertension Status: Chronic Response to Treatment: Stable Problem Specific Plan: Monitor Clinically Problem Text: Her BP is generally controlled. Continue current regimen, monitor. (5) Hyperthyroidism Status: Chronic Response to Treatment: Compensated (6) Fibromyalgia Status: Chronic Problem Specific Plan: Monitor Clinically Problem Text: This condition (and the fact that she has it) indicates that she may feel her physical sensations more intensely than others do. This may make it a little harder for her to feel much improved even when she is safe for discharge. Plan/VTE VTE Prophylaxis Ordered?: Yes (SQ heparin) VS, I&O, 24H, Fishbone Vital Signs/I&O Vital Signs Date Time Temp Pulse Resp B/P (MAP) Pulse Ox O2 Delivery O2 Flow Rate FiO2 04/17/19 16:25 18 04/17/19 14:00 98.7 76 152/70 (97) 99 2.0 04/16/19 15:17 Room Air I&O- Last 24 Hours up to 6 AM 04/17/19 06:00 Intake Total 200 ml Output Total 875 ml Balance -675 ml Laboratory Data 24H LABS Laboratory Tests 2 04/17/19 05:10: Immature Granulocyte % (Auto) 0.6, White Blood Count 5.4, Red Blood Count 3.29L, Hemoglobin 10.4L, Hematocrit 32.0L, Mean Corpuscular Volume 97.3H, Mean Corpuscular Hemoglobin 31.6, Mean Corpuscular Hemoglobin Concent 32.5, Red Cell Distribution Width 12.2, Platelet Count 153, Neutrophils (%) (Auto) 49.1, Lymphocytes (%) (Auto) 29.3, Monocytes (%) (Auto) 12.9H, Eosinophils (%) (Auto) 7.5H, Basophils (%) (Auto) 0.6, Neutrophils # (Auto) 2.6, Lymphocytes # (Auto) 1.6, Monocytes # (Auto) 0.7, Eosinophils # (Auto) 0.4, Basophils # (Auto) 0.0, Nucleated Red Blood Cells % (auto) 0.0, Anion Gap 7L, Glomerular Filtration Rate 49.4, Blood Urea Nitrogen 19H, Creatinine 1.15, Sodium Level 145, Potassium Level 3.9, Chloride Level 108H, Carbon Dioxide Level 30, Calcium Level 8.4L 04/17/19 09:35: Urine Color YELLOW, Urine Appearance CLEAR, Urine pH 5.0, Urine Specific [place] 1.011, Urine Protein NEGATIVE, Urine Glucose (UA) NEGATIVE, Urine Ketones NEGATIVE, Urine Blood NEGATIVE, Urine Nitrite NEGATIVE, Urine Bilirubin NE GATIVE, Urine Urobilinogen 0.2, Urine Leukocyte Esterase TRACEH, Urine WBC (Auto) 2, Urine RBC (Auto) 1, Urine Hyaline Casts (Auto) 0, Urine Bacteria (Auto) NEGATIVE, Urine Squamous Epithelial Cells 0, Urine Mucus (Auto) SMALL, Urine Sperm (Auto) CBC/BMP Laboratory Tests 04/17/19 05:10 Red Blood Count 3.29 L, Mean Corpuscular Volume 97.3 H, Mean Corpuscular Hemoglobin 31.6, Mean Corpuscular Hemoglobin Concent 32.5, Red Cell Distribution Width 12.2, Neutrophils (%) (Auto) 49.1, Lymphocytes (%) (Auto) 29.3, Monocytes (%) (Auto) 12.9 H, Eosinophils (%) (Auto) 7.5 H, Basophils (%) (Auto) 0.6, Neutrophils # (Auto) 2.6, Lymphocytes # (Auto) 1.6, Monocytes # (Auto) 0.7, Eosinophils # (Auto) 0.4, Basophils # (Auto) 0.0, Calcium Level 8.4 L Microbiology Microbiology 04/16/19 Blood Culture - Preliminary, Resulted No growth after 24 hours . All specim... 04/16/19 Blood Culture - Preliminary, Resulted No growth after 24 hours . All specim... 04/16/19 Respiratory Virus Panel (PCR) (SATHYA) - Final, Complete 04/16/19 Gram Stain - Final, Complete 04/16/19 Sputum Culture - Final, Complete 04/17/19 Urine Culture, Received Pending Rober Contreras MD Apr 17, 2019 7:06 pm
[2019-04-17] MEDS: guaiFENesin DM LIQ 10ML UD PO PRN (19:53)
[2019-04-17] MEDS: AZITHROMYCIN INJ 500 MG, VIAL MATE ADAPTER 1 EACH in D5W 250 ML IV SCH (19:54)
[2019-04-17] MEDS: LISINOPRIL 20 MG TAB PO SCH (21:12)
[2019-04-17 22:00] VITALS: BP 133/85
[2019-04-17] MEDS ORDERED: zolPIDEM TARTRATE 5 MG TAB PO ONE (23:15)
[2019-04-17] MEDS: TUSSICAPS ER 10/8MG CAPSULE PO SCH (23:20)
[2019-04-18] MEDS: guaiFENesin DM LIQ 10ML UD PO PRN ×4 (01:46→16:57)
[2019-04-18] MEDS: NORCO, ANEXSIA 5/325MG TABLET (HYDROcodone/ACETAMINOPHEN) PO PRN ×4 (04:53→18:57)
[2019-04-18] MEDS: LEVOTHYROXINE 50MCG TABLET (0.05MG) PO SCH (05:20)
[2019-04-18 06:00] VITALS: BP 134/63
[2019-04-18 06:08] LABS: BASO % 0.9 % (0.0-1.0); EOS # 0.4 10^3/uL (0.0-0.50); EOS % 8.7 % (0.0-3.0); HEMATOCRIT 31.3 % (36.0-47.0); HEMOGLOBIN 10.3 g/dl (12.0-15.5); LYMPH # 1.7 10^3/uL (1.5-4.5); LYMPH % 37.7 % (24.0-44.0); MEAN CORPUSCULAR HEMOGLOBIN 31.2 pg (27.0-33.0); MEAN CORPUSCULAR HGB CONC 32.9 g/dl (32.0-36.5); MEAN CORPUSCULAR VOLUME 94.8 fl (80.0-96.0); MONO # 0.5 10^3/uL (0.0-0.8); MONO % 10.5 % (0.0-5.0); NEUTROPHILS # 1.9 10^3/uL (1.8-7.7); NEUTROPHILS % 41.3 % (36.0-66.0); PLATELET COUNT, AUTOMATED 160 10^3/uL (150-450); WHITE BLOOD COUNT 4.6 10^3/uL (4.0-10.0)
[2019-04-18 06:29] LABS: BLOOD UREA NITROGEN 16 MG/DL (7-18); C REACTIVE PROTEIN QUANTITATIV 2.05 MG/DL (0.00-0.30); CALCIUM LEVEL 8.4 MG/DL (8.8-10.2); CARBON DIOXIDE LEVEL 29 MEQ/L (21-32); CHLORIDE LEVEL 109 MEQ/L (98-107); CREATININE FOR GFR 0.93 MG/DL (0.55-1.30); GLOMERULAR FILTRATION RATE > 60.0 (>39); GLUCOSE, FASTING 90 MG/DL (70-100); POTASSIUM SERUM 4.1 MEQ/L (3.5-5.1); SODIUM LEVEL 143 MEQ/L (136-145)
[2019-04-18] MEDS: diltiaZEM **CD** 180 MG CAP PO SCH ×2 (09:36→20:54)
[2019-04-18] MEDS: OMEPRAZOLE 20 MG CAP PO SCH (09:36)
[2019-04-18] MEDS: ASPIRIN 81 MG ENTERIC TAB PO SCH (09:37)
[2019-04-18] MEDS: METOPROLOL SUCC *XL* 25MG TAB (TopROL *XL*) PO SCH (09:37)
[2019-04-18] MEDS: TUSSICAPS ER 10/8MG CAPSULE PO SCH ×2 (09:37→20:55)
[2019-04-18] MEDS: VITAMIN E 400 INTERNATIONAL UNITS CAP PO SCH (09:37)
[2019-04-18] MEDS: ATORVASTATIN 20 MG TAB PO SCH (09:37)
[2019-04-18] MEDS: FERROUS SULFATE 325MG TAB PO SCH (09:37)
[2019-04-18] MEDS: DULoxetine 30 MG CAP (CYMBALTA) PO SCH (09:37)
[2019-04-18] MEDS: GABAPENTIN 400 MG CAP PO SCH ×3 (09:37→20:54)
[2019-04-18] MEDS: LISINOPRIL 40 MG TAB PO SCH (09:37)
[2019-04-18] MEDS: HEPARIN SOD (PORCINE) 5000 UNITS/ML VIAL SQ SCH ×2 (09:38→20:55)
[2019-04-18] MEDS: BENZONATATE 100 MG CAP PO PRN (13:19)
[2019-04-18 14:00] VITALS: BP 135/70
[2019-04-18] MEDS: cefTRIAXone SOD 1 GM in D5W MINI-BAG PLUS 50 ML IV SCH (17:00)
[2019-04-18] MEDS: AZITHROMYCIN INJ 500 MG, VIAL MATE ADAPTER 1 EACH in D5W 250 ML IV SCH (20:54)
[2019-04-18] MEDS: LISINOPRIL 20 MG TAB PO SCH (20:55)
[2019-04-18] MEDS: CEPACOL LOZENGE PO PRN (20:55)
[2019-04-18] MEDS: zolPIDEM TARTRATE 5 MG TAB PO PRN (20:56)
[2019-04-18 22:00] VITALS: BP 145/68
--- NOTE | 2019-04-18 23:48 | IPNPDOC ---
Subjective Date Seen The patient was seen on 04/18/19. Subjective Chief Complaint/HPI She reports that the cough syrup helped her last night. She still is coughing, but it is better. She did need to call for some Ambien last night, but it helped her sleep. She feels that her breathing is a bit improved from when she came in. Constitutional: Denies: Chills, Fever Pulmonary: Reports: Dyspnea, Cough Cardiovascular: Denies: Chest Pain, Palpitations Psych: Reports: Mood Normal Objective Physical Examination General Exam: Positive: Alert, Cooperative (sitting in her bed with the head elevated when I entered the room), No Acute Distress Eye Exam: Positive: Conjunctiva & lids normal; Negative: Sclera icteric ENT Exam: Positive: Mucous membr. moist/pink Neck Exam: Positive: Supple; Negative: Lymphadenopathy Chest Exam: Positive: Normal air movement, Wheezing (scattered inspiratory and more consistent end expiratory wheezes noted more prominently in the right lower posterior lung siddiqui), Diminished Heart Exam: Positive: Rate Normal, Normal S1, Normal S2; Negative: Murmurs Abdomen Exam: Positive: Normal bowel sounds, Soft; Negative: Tenderness Extremity Exam: Negative: Edema Psych Exam: Positive: Mood NL, Oriented x 3 Assessment /Plan Problems (1) Multilobar lung infiltrate Status: Acute Response to Treatment: Improving Discussed With: Patient Problem Specific Plan: Monitor Clinically Problem Text: She seems to be making improvement on her current regimen of antibiotics. Her coughing is under better control with the Robitussin. If she continues to do well we may even consider changing to orals tomorrow. 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 She continues to feel the need for sleep during the day, but reports she rested well last night. She asks whether the Ambien can become a routine nighttime medication for her. She seemed to tolerate it well so I will write this order. (3) Hypertension Status: Chronic Response to Treatment: Stable Problem Specific Plan: Monitor Clinically Problem Text: Her blood pressures appear to be reasonably controlled. Continue current regimen, monitor. (4) Hypothyroidism Status: Chronic Response to Treatment: Stable Problem Text: Continue current home dose of levothyroxine. (5) Chronic kidney disease, stage III (moderate) Status: Chronic Response to Treatment: Improving Discussed With: Patient Problem Specific Plan: Repeat Labs Problem Text: Her renal functions continued to improve, in fact they basically normalized. This is good, except that she has a known history of stage IIIc KD. I wonder if she is retaining fluid and therefore diluting herself down. We'll need to watch carefully tomorrow. (6) Fibromyalgia Status: Chronic Problem Text: This condition (and the fact that she has it) indicates that she may feel her physical sensations more intensely than others do. This may make it a little harder for her to feel much improved even when she is safe for discharge. Plan/VTE VTE Prophylaxis Ordered?: Yes (subcutaneous heparin) VS, I&O, 24H, Fishbone Vital Signs/I&O Vital Signs Date Time Temp Pulse Resp B/P (MAP) Pulse Ox O2 Delivery O2 Flow Rate FiO2 04/18/19 22:00 96.5 63 14 145/68 (93) 97 2.0 04/16/19 15:17 Room Air I&O- Last 24 Hours up to 6 AM 04/18/19 06:00 Intake Total 2560 ml Output Total 1725 ml Balance 835 ml Laboratory Data 24H LABS Laboratory Tests 2 04/18/19 05:49: Immature Granulocyte % (Auto) 0.9, White Blood Count 4.6, Red Blood Count 3.30L, Hemoglobin 10.3L, Hematocrit 31.3L, Mean Corpuscular Volume 94.8, Mean Corpuscular Hemoglobin 31.2, Mean Corpuscular Hemoglobin Concent 32.9, Red Cell Distribution Width 12.2, Platelet Count 160, Neutrophils (%) (Auto) 41.3, Lymphocytes (%) (Auto) 37.7, Monocytes (%) (Auto) 10.5H, Eosinophils (%) (Auto) 8.7H, Basophils (%) (Auto) 0.9, Neutrophils # (Auto) 1.9, Lymphocytes # (Auto) 1.7, Monocytes # (Auto) 0.5, Eosinophils # (Auto) 0.4, Basophils # (Auto) 0.0, Nucleated Red Blood Cells % (auto) 0.0, Anion Gap 5L, Glomerular Filtration Rate > 60.0, Blood Urea Nitrogen 16, Creatinine 0.93, Sodium Level 143, Potassium Level 4.1, Chloride Level 109H, Carbon Dioxide Level 29, Calcium Level 8.4L, C- Reactive Protein, Quantitative 2.05H CBC/BMP Laboratory Tests 04/18/19 05:49 Red Blood Count 3.30 L, Mean Corpuscular Volume 94.8, Mean Corpuscular Hemoglobin 31.2, Mean Corpuscular Hemoglobin Concent 32.9, Red Cell Distribution Width 12.2, Neutrophils (%) (Auto) 41.3, Lymphocytes (%) (Auto) 37.7, Monocytes (%) (Auto) 10.5 H, Eosinophils (%) (Auto) 8.7 H, Basophils (%) (Auto) 0.9, Neutrophils # (Auto) 1.9, Lymphocytes # (Auto) 1.7, Monocytes # (Auto) 0.5, Eosinophils # (Auto) 0.4, Basophils # (Auto) 0.0, Calcium Level 8.4 L Microbiology Microbiology 04/16/19 Blood Culture - Preliminary, Resulted No Growth after 48 hours. All Specime... 04/16/19 Blood Culture - Preliminary, Resulted No Growth after 48 hours. All Specime... 04/16/19 Respiratory Virus Panel (PCR) (SATHYA) - Final, Complete 04/16/19 Gram Stain - Final, Complete 04/16/19 Sputum Culture - Final, Complete 04/17/19 Urine Culture - Final, Complete Rober Contreras MD Apr 18, 2019 11:48 pm
[2019-04-19] MEDS: CEPACOL LOZENGE PO PRN ×2 (03:55→09:55)
[2019-04-19] MEDS: guaiFENesin DM LIQ 10ML UD PO PRN ×2 (03:55→14:59)
[2019-04-19] MEDS: NORCO, ANEXSIA 5/325MG TABLET (HYDROcodone/ACETAMINOPHEN) PO PRN ×3 (04:30→20:40)
[2019-04-19] MEDS: LEVOTHYROXINE 50MCG TABLET (0.05MG) PO SCH (05:52)
[2019-04-19 06:00] VITALS: BP 157/74
[2019-04-19 06:04] LABS: HEMATOCRIT 32.4 % (36.0-47.0); HEMOGLOBIN 10.4 g/dl (12.0-15.5); MEAN CORPUSCULAR HEMOGLOBIN 31.2 pg (27.0-33.0); MEAN CORPUSCULAR HGB CONC 32.1 g/dl (32.0-36.5); MEAN CORPUSCULAR VOLUME 97.3 fl (80.0-96.0); PLATELET COUNT, AUTOMATED 176 10^3/uL (150-450); RED BLOOD COUNT 3.33 10^6/uL (4.00-5.40); WHITE BLOOD COUNT 4.5 10^3/uL (4.0-10.0)
[2019-04-19 06:32] LABS: BLOOD UREA NITROGEN 15 MG/DL (7-18); C REACTIVE PROTEIN QUANTITATIV 1.38 MG/DL (0.00-0.30); CALCIUM LEVEL 8.8 MG/DL (8.8-10.2); CARBON DIOXIDE LEVEL 30 MEQ/L (21-32); CHLORIDE LEVEL 106 MEQ/L (98-107); CREATININE FOR GFR 0.96 MG/DL (0.55-1.30); GLOMERULAR FILTRATION RATE > 60.0 (>39); GLUCOSE, FASTING 109 MG/DL (70-100); POTASSIUM SERUM 3.8 MEQ/L (3.5-5.1); SODIUM LEVEL 142 MEQ/L (136-145)
--- NOTE | 2019-04-19 08:20 | IPNPDOC ---
Subjective Date Seen The patient was seen on 04/19/19. Subjective Chief Complaint/HPI Patient reports to be feeling much better and states she is looking forward to hopefully being discharged tomorrow. Cough has improved. She states she slept well with the use of Ambien Constitutional: Denies: Chills, Fever Pulmonary: Reports: Cough; Denies: Dyspnea, Pleuritic Chest Pain Cardiovascular: Denies: Chest Pain, Palpitations, Orthopnea, Edema Gastrointestinal: Denies: Nausea, Vomiting, Abdominal Pain, Diarrhea, Constipation Genitourinary: Denies: Dysuria, Frequency Psych: Reports: Mood Normal Objective Physical Examination General Exam: Positive: Alert, Cooperative (sitting in her bed with the head elevated when I entered the room), No Acute Distress Eye Exam: Positive: Conjunctiva & lids normal; Negative: Sclera icteric ENT Exam: Positive: Mucous membr. moist/pink Neck Exam: Positive: Supple; Negative: Lymphadenopathy Chest Exam: Positive: Clear to auscultation, Normal air movement; Negative: Rhonchi, Wheezing, Diminished Heart Exam: Positive: Rate Normal, Normal S1, Normal S2; Negative: Murmurs Abdomen Exam: Positive: Normal bowel sounds, Soft; Negative: Tenderness Extremity Exam: Negative: Edema Psych Exam: Positive: Mood NL, Oriented x 3 Assessment /Plan Problems (1) Multilobar lung infiltrate Status: Acute Response to Treatment: Improving Discussed With: Patient Problem Specific Plan: Monitor Clinically Problem Text: Patient with multilobar pneumonia. Patient continues to improve. We will transition her to oral abx today, Cefdinir (Cre Clearance 37). If she does well with this transition we can discharge her tomorrow. Chest CT: Impression: 1. Moderate area of consolidation involving the right lower lobe with air bronchograms and reactive adenopathy. Findings likely represent acute pneumonia and follow-up to resolution is recommended. 2. Left renal lesions likely representing simple and complex cysts may be followed by outpatient ultrasound. She seems to be making improvement on her current regimen of antibiotics. Her coughing is under better control with the Robitussin. If she continues to do well we may even consider changing to orals tomorrow. 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 She asks whether the Ambien can become a routine nighttime medication for her. (3) Hypertension Status: Chronic Response to Treatment: Stable Problem Specific Plan: Monitor Clinically Problem Text: Her blood pressures appear to be reasonably controlled. Continue current regimen, monitor. (4) Hypothyroidism Status: Chronic Response to Treatment: Stable Problem Text: Continue current home dose of levothyroxine. (5) Chronic kidney disease, stage III (moderate) Status: Chronic Response to Treatment: Improving Discussed With: Patient Problem Specific Plan: Repeat Labs Problem Text: Renal function appears to have returned to normal. Baseline Cre 1-1.1, GFR ~ 55. (6) Fibromyalgia Status: Chronic Problem Text: This condition (and the fact that she has it) indicates that she may feel her physical sensations more intensely than others do. This may make it a little harder for her to feel much improved even when she is safe for discharge. Plan/VTE VTE Prophylaxis Ordered?: Yes (subcutaneous heparin) Plan Family Medicine Attending Note: I saw and examined Ms. Nelson, discussed with Jesse Herrmann DNP. Agree with her note as documented. The patient is improving well I anticipate she'll be able to be discharged home tomorrow. She has requests about the Ambien, she would like to be on this medication at home. I explained to her that it's indicated for short-term use only. I do think it would be reasonable for her to have a 7 day prescription to help her get through the healing process after her pneumonia. Beyond that she'll need to speak to her primary care doctor about it. 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) VS, I&O, 24H, Fishbone Vital Signs/I&O Vital Signs Date Time Temp Pulse Resp B/P (MAP) Pulse Ox O2 Delivery O2 Flow Rate FiO2 04/19/19 06:00 96.2 64 18 157/74 (101) 100 2.0 04/16/19 15:17 Room Air I&O- Last 24 Hours up to 6 AM 04/19/19 06:00 Intake Total 870 ml Output Total 1490 ml Balance -620 ml Laboratory Data 24H LABS Laboratory Tests 2 04/19/19 05:38: Nucleated Red Blood Cells % (auto) 0.0, Anion Gap 6L, Glomerular Filtration Rate > 60.0, Blood Urea Nitrogen 15, Creatinine 0.96, Sodium Level 142, Potassium Level 3.8, Chloride Level 106, Carbon Dioxide Level 30, Calcium Level 8.8, C- Reactive Protein, Quantitative 1.38H CBC/BMP Laboratory Tests 04/19/19 05:38 Red Blood Count 3.33 L, Mean Corpuscular Volume 97.3 H, Mean Corpuscular Hemoglobin 31.2, Mean Corpuscular Hemoglobin Concent 32.1, Red Cell Distribution Width 12.0, Calcium Level 8.8 Microbiology Microbiology 04/16/19 Blood Culture - Preliminary, Resulted No Growth after 48 hours. All Specime... 04/16/19 Blood Culture - Preliminary, Resulted No Growth after 48 hours. All Specime... 04/16/19 Respiratory Virus Panel (PCR) (SATHYA) - Final, Complete 04/16/19 Gram Stain - Final, Complete 04/16/19 Sputum Culture - Final, Complete 04/17/19 Urine Culture - Final, Complete JESSE HERRMANN Apr 19, 2019 8:19 am Rober Contreras MD Apr 19, 2019 9:07 pm
[2019-04-19] MEDS ORDERED: hydroCHLOROthiazide 12.5 MG CAPSULE PO SCH (09:00)
[2019-04-19 09:48] VITALS: BP_SYST 128; BP_DIAS 56; BP_DIAS 69
[2019-04-19] MEDS: HEPARIN SOD (PORCINE) 5000 UNITS/ML VIAL SQ SCH ×2 (09:55→20:39)
[2019-04-19] MEDS: diltiaZEM **CD** 180 MG CAP PO SCH ×2 (09:56→20:39)
[2019-04-19] MEDS: GABAPENTIN 400 MG CAP PO SCH ×3 (09:56→20:38)
[2019-04-19] MEDS: LISINOPRIL 40 MG TAB PO SCH (09:57)
[2019-04-19] MEDS: DULoxetine 30 MG CAP (CYMBALTA) PO SCH (09:57)
[2019-04-19] MEDS: ATORVASTATIN 20 MG TAB PO SCH (09:57)
[2019-04-19] MEDS: CEFDINIR 300 MG CAP (OMNICEF) PO SCH ×2 (09:57→20:38)
[2019-04-19] MEDS: TUSSICAPS ER 10/8MG CAPSULE PO SCH ×2 (09:58→20:39)
[2019-04-19] MEDS: METOPROLOL SUCC *XL* 25MG TAB (TopROL *XL*) PO SCH (09:59)
[2019-04-19] MEDS: FERROUS SULFATE 325MG TAB PO SCH (09:59)
[2019-04-19] MEDS: OMEPRAZOLE 20 MG CAP PO SCH (09:59)
[2019-04-19] MEDS: ASPIRIN 81 MG ENTERIC TAB PO SCH (10:00)
[2019-04-19 14:00] VITALS: BP 138/61
[2019-04-19] MEDS: VITAMIN E 400 INTERNATIONAL UNITS CAP PO SCH (19:55)
[2019-04-19] MEDS: LISINOPRIL 20 MG TAB PO SCH (20:38)
[2019-04-19] MEDS: zolPIDEM TARTRATE 5 MG TAB PO PRN (21:47)
[2019-04-19 22:00] VITALS: BP 134/87
[2019-04-20] MEDS: guaiFENesin DM LIQ 10ML UD PO PRN (04:57)
[2019-04-20] MEDS: LEVOTHYROXINE 50MCG TABLET (0.05MG) PO SCH (05:35)
[2019-04-20 06:00] VITALS: BP 135/69
[2019-04-20 06:15] LABS: HEMATOCRIT 34.9 % (36.0-47.0); HEMOGLOBIN 11.2 g/dl (12.0-15.5); MEAN CORPUSCULAR HEMOGLOBIN 31.2 pg (27.0-33.0); MEAN CORPUSCULAR HGB CONC 32.1 g/dl (32.0-36.5); MEAN CORPUSCULAR VOLUME 97.2 fl (80.0-96.0); PLATELET COUNT, AUTOMATED 207 10^3/uL (150-450); RED BLOOD COUNT 3.59 10^6/uL (4.00-5.40); WHITE BLOOD COUNT 5.1 10^3/uL (4.0-10.0)
[2019-04-20 06:35] LABS: ALBUMIN 3.1 GM/DL (3.2-5.2); BLOOD UREA NITROGEN 14 MG/DL (7-18); CALCIUM LEVEL 8.4 MG/DL (8.8-10.2); CARBON DIOXIDE LEVEL 35 MEQ/L (21-32); CHLORIDE LEVEL 104 MEQ/L (98-107); CREATININE FOR GFR 0.97 MG/DL (0.55-1.30); GLOMERULAR FILTRATION RATE > 60.0 (>39); GLUCOSE, FASTING 108 MG/DL (70-100); PHOSPHORUS LEVEL 3.5 MG/DL (2.5-4.9); SODIUM LEVEL 142 MEQ/L (136-145)
[2019-04-20] MEDS ORDERED: BENZ-18 PO (08:30)
[2019-04-20] MEDS ORDERED: CEFD300CAP PO (08:30)
[2019-04-20] MEDS ORDERED: GUAISYP5 PO (08:30)
--- NOTE | 2019-04-20 08:48 | DS.PDOC ---
Discharge Summary General Date of Admission April 16, 2019 at 17:41 Date of Discharge 04/20/19 Primary Care Physician: JESSE HERRMANN Attending Physician: Rober Contreras MD Discharge Summary PROCEDURES PERFORMED DURING STAY: None ADMITTING DIAGNOSES: 1. Multilobar infiltrates/pneumonia 2. REJI superimposed on CKD DISCHARGE DIAGNOSES: 1. Multilobar infiltrates/pneumonia 2. CKD 3. Insomnia 4. Hypertension 5. Hypothyroidism 6. Fibromyalgia COMPLICATIONS/CHIEF COMPLAINT: Multilobar Lung Infiltrate. HISTORY OF PRESENT ILLNESS: 73 yo female sent by PCP for further evaluation and treatment of respiratory illness. History went back to over one week prior to ad mission. She was diagnosed with pneumonia at [facility], and completed 10 day course of Levaquin 500 mg PO daily, last dose 04/13/13. Symptoms persisted, with no improvement, and was seen again in [facility], and prescribed azithromycin, received one dose. Symptoms worsened, with SOB. She was sent to [facility] ER for further evaluation. She was admitted for treatment of pneumonia and REJI. HOSPITAL COURSE: 1. Multilobar lung infiltrate: She was treated with IV azithromycin and ceftriaxone. She was transitioned to oral abx Cefdinir on day 4 of her admission. Her symptoms improved over the course of her hospital stay. Her cough was treated with Tessalon, Robitussin DM liquid and Tussionex tabs. Sputum culture, BC and respiratory panel negative. Patient was much improved on day of discharge and was ready to return home 2. REJI superimposed on CKD: Her renal function improved with gentle hydration and returned back to her baseline on day 3 of hospital stay. Urine culture negative 3. Insomnia due to medical condition: She was given Ambien prn during hospital stay 4. Chronic kidney disease, stage III (moderate): Her renal fx improved substantially from admission. As above, her renal function returned to baseline 5. Hypertension: Her BP remained well controlled on her regular regimen 6. Hypothyroidism: Remained on Levothyroxine, thyroid levels remained within therapeutic range 7. Fibromyalgia: Remained stable DISCHARGE MEDICATIONS: Please see below. ALLERGIES: Please see below. PHYSICAL EXAMINATION ON DISCHARGE: VITAL SIGNS: Please see below. GENERAL:AOx3 in no acute distress HEENT: unremarkable NECK: supple, no lymphadenopathy CARDIOVASCULAR EXAMINATION: RRR RESPIRATORY EXAMINATION: CTA, no wheezing or rhonci ABDOMINAL EXAMINATION:non-tender, non-distended EXTREMITIES: no edema SKIN:warm, dry, good turgor NEUROLOGICAL EXAMINATION: intact LABORATORY DATA: Please see below. IMAGING: Chest x-ray 04/15/19: There is a fairly large opacity in the right infrahilar region most consistent with right lower lobe infiltrate and/or atelectasis. Follow-up films are recommended. CT scan 04/16/19: Impression: 1. Moderate area of consolidation involving the right lower lobe with air bronchograms and reactive adenopathy. Findings likely represent acute pneumonia and follow-up to resolution is recommended. 2. Left renal lesions likely representing simple and complex cysts may be followed by outpatient ultrasound. Lumbar Spine X-ray 04/16/19: Impression: 1. Osteopenia and degenerative changes as described above. 2. Hemangiomas involving L3 and L1. 3. No acute fracture / compression injury or subluxation. PROGNOSIS: Good ACTIVITY: As tolerated DIET: Low Na+ diet DISCHARGE PLAN: To home DISCHARGE INSTRUCTIONS: 1. F/U with PCP in one week DISCHARGE CONDITION: Stable Vital Signs/I&Os Vital Signs Date Time Temp Pulse Resp B/P (MAP) Pulse Ox O2 Delivery O2 Flow Rate FiO2 04/20/19 06:00 97.4 55 18 135/69 (91) 99 2.0 04/16/19 15:17 Room Air I&O- Last 24 Hours up to 6 AM 04/20/19 06:00 Intake Total 1678 ml Output Total 4275 ml Balance -2597 ml Laboratory Data Labs 24H Laboratory Tests 2 04/20/19 05:57: Nucleated Red Blood Cells % (auto) 0.0, Blood Urea Nitrogen 14, Creatinine 0.97, Sodium Level 142, Potassium Level 4.0, Chloride Level 104, Carbon Dioxide Level 35H, Anion Gap 3L, Glomerular Filtration Rate > 60.0, Calcium Level 8.4L, Phosphorus Level 3.5, Albumin 3.1L CBC/BMP Laboratory Tests 04/20/19 05:57 Red Blood Count 3.59 L, Mean Corpuscular Volume 97.2 H, Mean Corpuscular Hemoglobin 31.2, Mean Corpuscular Hemoglobin Concent 32.1, Red Cell Distribution Width 11.9, Anion Gap 3 L Microbiology Microbiology 04/16/19 Blood Culture - Preliminary, Resulted No Growth after 72 hours. All specime... 04/16/19 Blood Culture - Preliminary, Resulted No Growth after 72 hours. All specime... 04/16/19 Respiratory Virus Panel (PCR) (SATHYA) - Final, Complete 04/16/19 Gram Stain - Final, Complete 04/16/19 Sputum Culture - Final, Complete 04/17/19 Urine Culture - Final, Complete Discharge Medications Scheduled Aspirin (Aspir 81) 81 Mg Tab, 81 MG PO DAILY, (Reported) Atorvastatin Calcium (Atorvastatin Calcium) 80 Mg Tab, 80 MG PO DAILY, (Reported) Cefdinir (Cefdinir) 300 Mg Capsule, 300 MG PO BID Cholecalciferol (Vitamin D3) (Vitamin D3) 5,000 Unit Capsule, 5,000 UNIT PO DAILY, (Reported) Diltiazem HCl (Cartia Xt) 180 Mg Cap.er.24h, 360 MG PO DAILY, (Reported) Diltiazem Hcl (Diltiazem 24Hr ER) 180 Mg Cap.er.24h, 180 MG PO QHS, (Reported) Duloxetine Hcl (Cymbalta) 60 Mg Cap, 60 MG PO DAILY, (Reported) Ferrous Sulfate (Ferrous Sulfate) 325 Mg Tab, 325 MG PO DAILY, (Reported) Gabapentin (Neurontin) 600 Mg Tab, 800 MG PO TID, (Reported) Hydrochlorothiazide (Hydrochlorothiazide) 12.5 Mg Tab, 12.5 MG PO 3XW, (Reported) FRIDAY, FRIDAY, AND FRIDAY Levothyroxine Sodium (Levothyroxine Sodium) 50 Mcg Tablet, 50 MCG PO DAILY, (Reported) Lisinopril (Lisinopril) 20 Mg Tab, 20 MG PO QHS, (Reported) Lisinopril (Lisinopril) 40 Mg Tablet, 40 MG PO DAILY, (Reported) Metoprolol Succinate (Metoprolol Succinate) 50 Mg Tab, 75 MG PO DAILY, (Reported) Omeprazole (Omeprazole) 40 Mg Cap, 40 MG PO DAILY, (Reported) Potassium Gluconate (Potassium) 99 Mg Tablet, 99 MG PO DAILY, (Reported) Vitamin E (Dl,Tocopheryl Acet) (Vitamin E) 400 Unit Capsule, 400 UNIT PO DAILY, (Reported) Scheduled PRN Benzonatate (Benzonatate) 100 Mg Capsule, 200 MG PO Q8HP PRN for cough Guaifenesin/Dextromethorphan (Guaifenesin Dm Syrup) 120 Ml Syrup, 10 ML PO Q4HP PRN for COUGH Hydrocodone/Acetaminophen ([place] 10-325 Tablet) 1 Tab Tab, 1 TAB PO BID PRN for PAIN, (Reported) Sumatriptan Succinate (Sumatriptan Succinate) 100 Mg Tab, 100 MG PO PRN PRN for HEADACHE, (Reported) Allergies Coded Allergies: Penicillins (Verified Allergy, Intermediate, HIVES, 03/19/19) morphine (Verified Allergy, Intermediate, ITCHING, 03/19/19) tetracycline (Verified Allergy, Intermediate, HIVES, 03/19/19) Sulfa (Sulfonamide Antibiotics) (Verified Allergy, Unknown, HIVES, 03/25/19) erythromycin base (Verified Allergy, Unknown, HIVES, 03/25/19) JESSE HERRMANN [facility] Apr 20, 2019 08:48
[2019-04-20] MEDS: ATORVASTATIN 20 MG TAB PO SCH (09:22)
[2019-04-20] MEDS: DULoxetine 30 MG CAP (CYMBALTA) PO SCH (09:23)
[2019-04-20] MEDS: FERROUS SULFATE 325MG TAB PO SCH (09:23)
[2019-04-20] MEDS: ASPIRIN 81 MG ENTERIC TAB PO SCH (09:23)
[2019-04-20] MEDS: OMEPRAZOLE 20 MG CAP PO SCH (09:24)
[2019-04-20] MEDS: GABAPENTIN 400 MG CAP PO SCH (09:24)
[2019-04-20] MEDS: VITAMIN E 400 INTERNATIONAL UNITS CAP PO SCH (09:24)
[2019-04-20] MEDS: CEFDINIR 300 MG CAP (OMNICEF) PO SCH (09:24)
[2019-04-20] MEDS: LISINOPRIL 40 MG TAB PO SCH (09:25)
[2019-04-20] MEDS: TUSSICAPS ER 10/8MG CAPSULE PO SCH (09:25)
[2019-04-20] MEDS: HEPARIN SOD (PORCINE) 5000 UNITS/ML VIAL SQ SCH (09:25)
[2019-04-20] MEDS: diltiaZEM **CD** 180 MG CAP PO SCH (09:30)
[2019-04-20 09:31] VITALS: BP 120/64
[2019-04-20] MEDS: METOPROLOL SUCC *XL* 25MG TAB (TopROL *XL*) PO SCH (09:31)
== END 2019-04-20 11:17 | disposition home or self-care (01) | DRG 194 ==
LOC: M ED 15:17 → M ED INP 17:41 → M MSPAV 20:55
PROVIDERS: ADMIT Family Medicine; ATTEND Family Medicine
DX: J18.1 Lobar pneumonia, unspecified organism (principal); N17.9 Acute kidney failure, unspecified; G47.01 Insomnia due to medical condition; N18.3 Chronic kidney disease, stage 3 (moderate); I12.9 Hypertensive chronic kidney disease with stage 1 through stage 4 chronic kidney disease, or unspecified chronic kidney disease; E03.9 Hypothyroidism, unspecified; M79.7 Fibromyalgia; Z79.899 Other long term (current) drug therapy; Z79.82 Long term (current) use of aspirin; Z88.0 Allergy status to penicillin; Z88.5 Allergy status to narcotic agent; Z88.2 Allergy status to sulfonamides; Z88.1 Allergy status to other antibiotic agents

== ENCOUNTER → 2019-04-22 | Outpatient (REF) | payer MEDICARE ==
[~2019-04-22] MED LIST changes: +AZIT-12 PO; +BENZ-18 PO; +CEFD300CAP PO; +DILT180C78 PO; +GUAISYP5 PO; +LEVO500T3 PO; +LEVO50TA5 PO
[2019-04-22 14:14] LABS: CHOLESTEROL RISK RATIO 3.205 (<5); THYROID STIMULATING HORMONE 2.11 uIU/ML (0.358-3.740)
== END ==
LOC: M SFHCPLAZ 10:56
PROVIDERS: ATTEND Nurse Practitioner Family
DX: E78.5 Hyperlipidemia, unspecified (principal); E03.9 Hypothyroidism, unspecified

== ENCOUNTER → 2019-05-07 | Outpatient (REF) | payer MEDICARE ==
[2019-05-07 13:33] LABS: BASO % 0.7 % (0.0-1.0); EOS # 0.4 10^3/uL (0.0-0.50); EOS % 8.7 % (0.0-3.0); HEMATOCRIT 40.5 % (36.0-47.0); HEMOGLOBIN 13.1 g/dl (12.0-15.5); LYMPH # 1.3 10^3/uL (1.5-4.5); MEAN CORPUSCULAR HEMOGLOBIN 31.8 pg (27.0-33.0); MEAN CORPUSCULAR HGB CONC 32.3 g/dl (32.0-36.5); MEAN CORPUSCULAR VOLUME 98.3 fl (80.0-96.0); MONO # 0.3 10^3/uL (0.0-0.8); MONO % 6.8 % (0.0-5.0); NEUTROPHILS # 2.4 10^3/uL (1.8-7.7); NEUTROPHILS % 54.3 % (36.0-66.0); PLATELET COUNT, AUTOMATED 257 10^3/uL (150-450); RED BLOOD COUNT 4.12 10^6/uL (4.00-5.40); WHITE BLOOD COUNT 4.4 10^3/uL (4.0-10.0)
[2019-05-07 14:36] LABS: ERYTHROCYTE SEDIMENTATION RATE 32 mm/hr (0-30)
== END ==
LOC: M LABDRAW1 12:09
PROVIDERS: ATTEND Physician Assistant
DX: M25.369 Other instability, unspecified knee (principal); D64.9 Anemia, unspecified

== ENCOUNTER → 2019-06-28 | Outpatient (CLI) | payer MEDICARE ==
--- NOTE | 2019-06-28 13:41 | REPMRS ---
Patient History The patient states she had a clinical breast exam in 05/2019. No known family history of cancer. Digital Woman Screen Mammo: June 28, 2019 - Exam #: [id number] Bilateral CC and MLO view(s) were taken. Technologist: La Nena Jack, Technologist Prior study comparison: January 20, 2018, digital woman screen mammo performed at [facility]. September 2016, bilateral digital mammo screening bilat, performed at [facility]. April 19, 2015, bilateral digital woman screen mammo, performed at [facility]. FINDINGS: There are scattered fibroglandular densities. There has been no change in the appearance of the mammogram from the prior studies. There is a mild amount of scattered fibroglandular density which is fairly symmetric. There is no interval development of dominant mass, architectural distortion, or grouped microcalcification suggestive of malignancy. 3-D tomosynthesis shows no additional findings. Assessment: BI-RADS/ACR category 1 mammogram. Negative Mammogram. Recommendation Routine screening mammogram of both breasts in 1 year (for women over age 40). This patient's Lifetime Breast Cancer Risk is estimated at 2.2 %. This mammogram was interpreted with the aid of an FDA-approved computer-aided dectection system. Electronically Signed By: Henry Orozco MD 06/28/19 [id number]
== END ==
LOC: M WHC 11:28
PROVIDERS: ATTEND Nurse Practitioner Family
DX: Z12.31 Encounter for screening mammogram for malignant neoplasm of breast (principal)

== ENCOUNTER → 2019-11-04 | Outpatient (REF) | payer MEDICARE ==
[~2019-11-04] MED LIST changes: -OMEP40CA2 PO; +OMEP40CA97 PO
[2019-11-04 17:08] LABS: CHOLESTEROL RISK RATIO 3.826 (<5)
[2019-11-04 17:19] LABS: BILIRUBIN,TOTAL 0.9 MG/DL (0.2-1.0); CALCIUM LEVEL 9.3 MG/DL (8.8-10.2); CREATININE FOR GFR 1.12 MG/DL (0.55-1.30); GLOMERULAR FILTRATION RATE 50.8 (>39); POTASSIUM SERUM 4.1 MEQ/L (3.5-5.1); THYROID STIMULATING HORMONE 1.68 uIU/ML (0.358-3.740); TOTAL PROTEIN 7.2 GM/DL (6.4-8.2)
== END ==
LOC: M SFHCLERA 13:27
PROVIDERS: ATTEND Family Medicine
DX: I10 Essential (primary) hypertension (principal); N18.3 Chronic kidney disease, stage 3 (moderate); E78.5 Hyperlipidemia, unspecified; E03.9 Hypothyroidism, unspecified

== ENCOUNTER → 2019-12-13 | Outpatient (CLI) | payer MEDICARE ==
--- NOTE | 2019-12-15 16:31 | REP ---
RENAL ULTRASOUND: Real-time sonographic evaluation of the kidneys is performed. The kidneys are normal in size and echotexture, right kidney measuring 10.4 x 4.5 x 5.4 cm and left kidney 9.5 x 6.0 x 5.0 cm. There is no hydronephrosis bilaterally. There are several bilateral renal cysts. There are two cysts in the lower pole of the right kidney measuring 1.8 cm maximally and 1.2 cm maximally. A cyst in the mid aspect measures 1.3 cm maximally. There is a cyst in the left upper pole measuring 4.3 cm maximally. A cyst in the mid aspect measures 1.5 cm maximally. Urinary bladder measures 7.3 x 9.4 x 5.9 cm for a total volume of 264 mL. Ureteral jets are visualized in the urinary bladder with Doppler color evaluation. No gross mass or calculus is seen. IMPRESSION: Bilateral renal cysts as above. Electronically Signed by Bebeto Valero MD 12/16/2019 07:57 P
== END ==
LOC: M LRY 13:32
PROVIDERS: ATTEND Family Medicine
DX: N28.1 Cyst of kidney, acquired (principal)

== ENCOUNTER → 2020-01-03 | Outpatient (CLI) | payer MEDICARE ==
[~2020-01-03] MED LIST changes: +VITA-1 PO; -VITAE40CA PO
--- NOTE | 2020-01-03 15:40 | PFTRPT ---
Site: [facility], [address] [place] [address], [id number] ID: [id number] Name: CIPRIANO WATERS Visit Date: 01/03/2020 Second ID: [id number] Referring Doctor: ARNIE AGUILAR DO Reviewing Doctor: Magan Dempsey MD Wafer Cleaner: Lee GANT RRT Age: 74 : 1945 Sex: Female Race: Height: 67.00 Inches Weight: 210.00 Lbs BSA: 2.06 Order IDs: [id number] Requested Test(s): <RESP-PFT.PFT B/A> Diagnosis: J44.9 test meet the ATS standards for acceptability and repeatability. Pt was given four puffs of albuterol for postbronchodilator. Review Status: Not Reviewed Pre-Bronch Post-Bronch Pred Actual %Pred Actual %Chng SPIROMETRY FVC (L) 3.25 3.53 108 3.61 2 FEV1 (L) 2.45 2.83 115 2.98 5 FEV1/FVC (%) 75 80 106 83 3 FEF 25% (L/sec) 4.97 5.88 118 7.19 22 FEF 50% (L/sec) 3.24 4.03 124 4.38 8 FEF 75% (L/sec) 0.90 1.04 115 1.26 21 FEF 25-75% (L/sec) 1.91 2.79 145 3.54 26 FEF Max (L/sec) 5.85 7.49 128 7.95 6 FIVC (L) 3.49 3.60 2 FIF 50% (L/sec) 3.52 4.91 139 5.40 9 FIF Max (L/sec) 4.98 5.43 8 MVV (L/min) 90 126 139 Expiratory Time (sec) 6.98 6.28 -10 Back Extrap Vol (L) 0.14 0.13 -6 Time To FEFmax (sec) 0.117 0.130 11 LUNG VOLUMES SVC (L) 3.09 3.71 120 IC (L) 2.33 2.70 115 ERV (L) 0.76 1.02 133 TGV (L) 3.17 2.91 91 RV (Pleth) (L) 2.41 1.89 78 TLC (Pleth) (L) 5.50 5.61 101 RV/TLC (Pleth) (%) 45 34 75 DIFFUSION DLCOunc (ml/min/mmHg) 21.36 17.32 81 DLCOcor (ml/min/mmHg) 21.36 17.49 81 DL/VA (ml/min/mmHg/L) 3.88 3.16 81 VA (L) 5.50 5.53 100 BHT (sec) 10.27 IVC (L) 3.52 TLC (SB) (L) 5.68 AIRWAYS RESISTANCE Raw (cmH2O/L/s) 1.86 1.06 56 Gaw (L/s/cmH2O) 1.03 0.96 93 sRaw (cmH2O*s) 4.76 4.05 85 sGaw (1/cmH2O*s) 0.20 0.25 124 BLOOD GASES Hgb (gm/dL) 13.1
== END ==
LOC: M CARPUL 14:58
PROVIDERS: ATTEND Family Medicine
DX: J44.9 Chronic obstructive pulmonary disease, unspecified (principal)

== ENCOUNTER → 2020-05-01 | Outpatient (CLI) | payer MEDICARE ==
[2020-05-01 17:35] LABS: CALCIUM LEVEL 9.2 MG/DL (8.8-10.2); CREATININE FOR GFR 1.08 MG/DL (0.55-1.30); GLOMERULAR FILTRATION RATE 52.9 (>39); POTASSIUM SERUM 3.9 MEQ/L (3.5-5.1)
== END ==
LOC: M WUC 11:56
PROVIDERS: ATTEND Physician Assistant Medical
DX: N18.3 Chronic kidney disease, stage 3 (moderate) (principal)

== ENCOUNTER 2020-10-27 20:12 | Inpatient (IN) | payer MEDICARE ==
[~2020-10-27] VITALS: Ht 170.2 cm; Wt 90.0 kg
[~2020-10-27 20:12] MED LIST changes: -ASPI81TA85 PO; +ASPI81TA86 PO; -VITA-1 PO; +VITA-259 PO
[2020-10-27] MEDS: LATANOPROST 0.005% OPHTH SOLN 2.5 ML OU SCH (21:00)
[2020-10-27] MEDS ORDERED: ONDANSETRON 4MG/2ML VIAL IV ONE (21:00)
[2020-10-27 21:10] LABS: BASO % 0.3 % (0.0-1.0); EOS # 0.3 10^3/uL (0.0-0.5); EOS % 2.6 % (0.0-3.0); HEMATOCRIT 43.6 % (36.0-47.0); HEMOGLOBIN 13.7 g/dl (12.0-15.5); LYMPH % 9.8 % (24.0-44.0); MEAN CORPUSCULAR HEMOGLOBIN 29.7 pg (27.0-33.0); MEAN CORPUSCULAR HGB CONC 31.4 g/dl (32.0-36.5); MEAN CORPUSCULAR VOLUME 94.6 fl (80.0-96.0); MONO # 0.6 10^3/uL (0.0-0.8); NEUTROPHILS % 80.9 % (36.0-66.0); PLATELET COUNT, AUTOMATED 171 10^3/uL (150-450); RED BLOOD COUNT 4.61 10^6/uL (4.00-5.40); WHITE BLOOD COUNT 9.8 10^3/uL (4.0-10.0)
[2020-10-27 21:38] LABS: ALBUMIN 4.1 GM/DL (3.2-5.2); ALT/SGPT 26 U/L (12-78); BILIRUBIN,DIRECT 0.2 MG/DL (0.0-0.2); BILIRUBIN,TOTAL 0.6 MG/DL (0.2-1.0); BLOOD UREA NITROGEN 21 MG/DL (7-18); CALCIUM LEVEL 9.7 MG/DL (8.8-10.2); CARBON DIOXIDE LEVEL 33 MEQ/L (21-32); CHLORIDE LEVEL 104 MEQ/L (98-107); CK-MB VALUE MASS 1.8 NG/ML (<3.6); CPK CREATINE PHOSPHOKINASE 73 U/L (26-192); CREATININE FOR GFR 1.13 MG/DL (0.55-1.30); GLOMERULAR FILTRATION RATE 50.1 (>39); GLUCOSE, FASTING 172 MG/DL (70-100); LIPASE 122 U/L (73-393); MB/CK RELATIVE INDEX 2.47 (< OR =4); NT-PRO BNP 184 PG/ML (<125); POTASSIUM SERUM 3.7 MEQ/L (3.5-5.1); SODIUM LEVEL 141 MEQ/L (136-145); TOTAL PROTEIN 6.9 GM/DL (6.4-8.2); TROPONIN I < 0.02 NG/ML (< 0.10)
--- NOTE | 2020-10-27 21:56 | REPVR ---
PROCEDURE INFORMATION: Exam: XR Chest, 1 View Exam date and time: 10/27/2020 8:20 PM Age: 75 years old Clinical indication: Chest pain TECHNIQUE: Imaging protocol: XR of the chest Views: 1 view. COMPARISON: CT Chest without contrast 04/16/2019 5:40 PM FINDINGS: Lungs: No focal infiltrates. Pleural space: Unremarkable. No pleural effusion. No pneumothorax. Heart/Mediastinum: Unremarkable. No cardiomegaly. Bones/joints: Unremarkable. Soft tissues: There are moderately generous overlying soft tissues. IMPRESSION: Negative chest. Electronically signed by: Young Wood On 10/27/2020 21:55:43 PM
[2020-10-27] MEDS ORDERED: ISOVUE-370 76% 100ML VIAL As Ordered ONE (22:04)
[2020-10-28] MEDS ORDERED: METOCLOPRAMIDE INJ 10MG/2ML VIAL (J2765 PER 1) IV ONE
--- NOTE | 2020-10-28 00:29 | REPVR ---
PROCEDURE INFORMATION: Exam: CT Angiography Chest With Contrast Exam date and time: 10/28/2020 12:11 AM Age: 75 years old Clinical indication: Other: Chest pain, abd pain TECHNIQUE: Imaging protocol: Computed tomographic angiography of the chest with intravenous contrast. 3D rendering (Not supervised by radiologist): MIP and/or 3D reconstructed images were created by the technologist. Radiation optimization: All CT scans at this facility use at least one of these dose optimization techniques: automated exposure control; mA and/or kV adjustment per patient size (includes targeted exams where dose is matched to clinical indication); or iterative reconstruction. Contrast material: ISOVUE 370; Contrast volume: 100 ml; Contrast route: INTRAVENOUS (IV); COMPARISON: CT Chest without contrast 04/16/2019 5:40 PM FINDINGS: Pulmonary arteries: The main pulmonary artery measures 26 mm. No pulmonary embolism is identified. Aorta: The ascending thoracic aorta measures 30 mm. Lungs: Bilateral lower lobe and posterior upper lobe coarse interstitium with question of minimal bilateral lower lobe ground-glass infiltrates. Pleural space: Unremarkable. No pneumothorax. No pleural effusion. Heart: Trace pericardial effusion posteriorly. Mediastinal space: Minimal hiatal hernia. Lymph nodes: Unremarkable. No enlarged lymph nodes. Kidneys and ureters: There are some left renal cysts measuring up to 5.1 cm which are incompletely visualized. There is a small cyst of the right kidney measuring 13 mm which is also incompletely visualized. The appearance is unchanged from 04/16/2019 and no follow-up imaging is recommended. Stomach and bowel: Mild distention of the stomach with fluid and gas. Bones/joints: There is patchy sclerosis involving the T12 segment. Soft tissues: Unremarkable. Other findings: Mild decreased height and wedge configuration of T11. IMPRESSION: 1. Decreased height and wedge configuration of T11 and patchy sclerosis of T12 which is unchanged from 04/16/2019. 2. There is mild gastric distention with fluid and gas which may reflect recent ingestion. Gastric atony or relative outlet obstruction are not excluded. 3. Decreased localized right lower lobe infiltrate and consolidation since the prior study. Residual coarse interstitium is noted in the lower lobes and posterior upper lobes with question of minimal ground-glass infiltrates in the lower lobes bilaterally. 4. Trace pericardial effusion which is new since the prior study. 5. Otherwise negative CTA chest. No pulmonary embolism is identified. COMMENTS: Consistent with the [employer]'s Incidental Findings Committee white paper (J Am Moe Radiol 2018): Any incidental renal lesion less than 1 cm or classified as too small to characterize, or any incidental cystic renal lesion characterized as simple-appearing, is likely benign. No follow-up imaging is recommended for these lesions per consensus recommendations based on imaging criteria. Electronically signed by: Young Wood On 10/28/2020 00:29:17 AM
--- NOTE | 2020-10-28 00:37 | REPVR ---
PROCEDURE INFORMATION: Exam: CT Abdomen And Pelvis With Contrast Exam date and time: 10/28/2020 12:12 AM Age: 75 years old Clinical indication: Abdominal pain; Generalized; Additional info: Chest pain, abd pain TECHNIQUE: Imaging protocol: Computed tomography of the abdomen and pelvis with intravenous contrast. Radiation optimization: All CT scans at this facility use at least one of these dose optimization techniques: automated exposure control; mA and/or kV adjustment per patient size (includes targeted exams where dose is matched to clinical indication); or iterative reconstruction. Contrast material: ISOVUE 370; Contrast volume: 100 ml; Contrast route: INTRAVENOUS (IV); COMPARISON: No relevant prior studies available. FINDINGS: Liver: The liver attenuation is 67 Hounsfield units and the spleen is 124 Hounsfield units. Gallbladder and bile ducts: Normal. No calcified stones. No ductal dilation. Pancreas: Normal. No ductal dilation. Spleen: Normal. No splenomegaly. Adrenal glands: Normal. No mass. Kidneys and ureters: There are bilateral renal cysts measuring up to 5.0 cm on the left with a Hounsfield measurement of 3. These appear to reflect Bosniak 1 cysts. No follow-up imaging is recommended. Stomach and bowel: Mild distention of the stomach with fluid and gas. Small bowel anastomosis in the midline upper pelvis anteriorly which is mildly distended which is likely physiologic. There is mild distention of proximal small bowel with collapse of distal small bowel consistent with small bowel obstruction. There is an abrupt point of transition just deep to some of the mesh for hernia repair toward the left aspect and noted on series 501, image # 76 and series 502, image # 24. There is stool like material in the preceding lumen. Appendix: There are no changes of appendicitis. A normal appendix is not seen. Intraperitoneal space: Unremarkable. No free air. No significant fluid collection. Vasculature: There is minimal atherosclerotic calcification of the abdominal aorta. Lymph nodes: Unremarkable. No enlarged lymph nodes. Urinary bladder: Unremarkable as visualized. Reproductive: Status post hysterectomy. Bones/joints: Unremarkable. No acute fracture. Soft tissues: Status post ventral wall hernia repair with mesh in the epigastrium. IMPRESSION: 1. Status post ventral wall hernia repairs with mesh. 2. Small-bowel obstruction with an abrupt point of transition consistent with adhesion which is just deep to the left aspect of some of the ventral wall mesh anteriorly. 3. Fatty infiltration of the liver. 4. Status post hysterectomy. COMMENTS: Consistent with the [employer]'s Incidental Findings Committee white paper (J Am Moe Radiol 2018): Any incidental renal lesion less than 1 cm or classified as too small to characterize, or any incidental cystic renal lesion characterized as simple-appearing, is likely benign. No follow-up imaging is recommended for these lesions per consensus recommendations based on imaging criteria. Electronically signed by: Young Wood On 10/28/2020 00:37:22 AM
[2020-10-28] MEDS ORDERED: ASPI81TA26 PO (01:18)
[2020-10-28] MEDS ORDERED: LISI-538 PO (01:18)
[2020-10-28] MEDS ORDERED: XALA0.007 OU (01:18)
[2020-10-28] MEDS ORDERED: D31000TA2 PO (01:18)
[2020-10-28] MEDS ORDERED: ONDANSETRON 4MG/2ML VIAL IV PRN (02:30)
[2020-10-28] MEDS ORDERED: KETOROLAC 30 MG/ML 1ML VIAL IV ONE (02:30)
[2020-10-28] MEDS ORDERED: HYDROMORPHONE HCL 0.5 MG/ 0.5 ML SYRINGE (J1170 PER 1) IV PRN (02:30)
[2020-10-28] MEDS: LR 1,000 ML IV SCH ×4 (02:55→19:47)
[2020-10-28] MEDS ORDERED: lisinopriL 40 MG TAB PO ONE (05:15)
[2020-10-28] MEDS ORDERED: METOPROLOL SUCC *XL* 25MG TAB (TopROL *XL*) PO ONE (05:30)
[2020-10-28] MEDS ORDERED: LEVOTHYROXINE 100MCG (0.1MG) VIAL IV SCH (09:00)
[2020-10-28 09:45] VITALS: BP 193/160
[2020-10-28 09:55] VITALS: BP 194/98
--- NOTE | 2020-10-28 10:04 | ECGEPIP ---
[facility] - ED Test Date: 2020-10-27 Pat Name: CIPRIANO WATERS Department: Room: [place] [address] Gender: Female Manager Surgery: ya : 1945 Requested By: JENNIFER Salomon Order Number: [id number] Reading MD: Marizol Vázquez Measurements Intervals [place] Rate: 58 P: 50 IN: 164 QRS: 8 QRSD: 78 T: 37 QT: 416 QTc: 411 Interpretive Statements SINUS BRADYCARDIA NSTTW abnormalities DECREASED RATE 04/16/19 Electronically Signed on 10-28-2020 10:04:32 EST by Marizol Vázquez
[2020-10-28] MEDS: PANTOPRAZOLE 40MG VIAL (C9113 PER 1) IV SCH (10:30)
[2020-10-28] MEDS: HEPARIN SOD (PORCINE) 5000UNITS/ML 1ML VIAL/SYRINGE SC SCH ×2 (10:31→20:06)
[2020-10-28] MEDS ORDERED: METOCLOPRAMIDE INJ 10MG/2ML VIAL (J2765 PER 1) IV PRN (11:00)
[2020-10-28] MEDS: KETOROLAC 30 MG/ML 1ML VIAL IV PRN ×2 (11:12→20:05)
[2020-10-28 11:59] LABS: CALCIUM LEVEL 9.6 MG/DL (8.8-10.2); CREATININE FOR GFR 1.14 MG/DL (0.55-1.30); GLOMERULAR FILTRATION RATE 49.6 (>39); POTASSIUM SERUM 3.6 MEQ/L (3.5-5.1)
[2020-10-28] MEDS: diltiaZEM **CD** 180 MG CAP PO SCH ×2 (14:00→20:06)
[2020-10-28] MEDS ORDERED: METOPROLOL TART 50 MG TAB PO ONE (14:30)
[2020-10-28] MEDS: HYDROMORPHONE HCL 0.5 MG/ 0.5 ML SYRINGE (J1170 PER 1) IV PRN (14:45)
--- NOTE | 2020-10-28 15:35 | REP ---
INDICATION: SBO. COMPARISON: CT abdomen and pelvis 10/27/2020. TECHNIQUE: 2 AP views of abdomen and pelvis performed. FINDINGS: A moderately dilated small bowel loop is seen in the left mid abdomen. The previously noted small bowel dilatation appears decreased and improved compared to the prior CT commercial energy rater image. A nasogastric tube is seen with side port just distal to the gastroesophageal junction. Contrast material is seen in the renal collecting systems and in the bladder. There are mild degenerative changes of the spine. IMPRESSION: There is a mild to moderately dilated small bowel loop in the left mid abdomen. The previously noted small bowel dilatation has improved since the CT scan of 10/27/2020. <Electronically signed by Bebeto Valero > 10/28/20 [id number]
[2020-10-28 20:00] VITALS: BP 171/90
[2020-10-28] MEDS: lisinopriL 20 MG TAB PO SCH (20:05)
[2020-10-28 20:30] VITALS: BP 165/85
[2020-10-28] MEDS: LATANOPROST 0.005% OPHTH SOLN 2.5 ML OU SCH (21:59)
[2020-10-28 23:24] VITALS: BP 170/80
[2020-10-29] VITALS (7 sets, daily range): BP systolic 146–185; BP diastolic 63–96
[2020-10-29] MEDS: HYDROMORPHONE HCL 0.5 MG/ 0.5 ML SYRINGE (J1170 PER 1) IV PRN ×3 (00:57→16:37)
[2020-10-29] MEDS: LR 1,000 ML IV SCH ×2 (03:11→18:29)
[2020-10-29] MEDS: KETOROLAC 30 MG/ML 1ML VIAL IV PRN ×2 (05:31→14:37)
[2020-10-29] MEDS ORDERED: LEVOTHYROXINE 100MCG (0.1MG) VIAL IV SCH (06:00)
[2020-10-29] MEDS: PANTOPRAZOLE 40MG VIAL (C9113 PER 1) IV SCH (08:52)
[2020-10-29] MEDS: HEPARIN SOD (PORCINE) 5000UNITS/ML 1ML VIAL/SYRINGE SC SCH ×2 (08:52→21:23)
[2020-10-29] MEDS: lisinopriL 40 MG TAB PO SCH (08:52)
[2020-10-29] MEDS: METOPROLOL SUCC *XL* 25MG TAB (TopROL *XL*) PO SCH (08:53)
[2020-10-29] MEDS: diltiaZEM **CD** 180 MG CAP PO SCH ×2 (08:54→21:24)
[2020-10-29 13:07] LABS: BASO % 0.3 % (0.0-1.0); EOS # 0.4 10^3/uL (0.0-0.5); EOS % 5.8 % (0.0-3.0); HEMATOCRIT 37.6 % (36.0-47.0); LYMPH # 1.5 10^3/uL (1.5-5.0); LYMPH % 22.3 % (24.0-44.0); MEAN CORPUSCULAR HEMOGLOBIN 29.6 pg (27.0-33.0); MEAN CORPUSCULAR HGB CONC 30.9 g/dl (32.0-36.5); MEAN CORPUSCULAR VOLUME 95.9 fl (80.0-96.0); MONO # 0.5 10^3/uL (0.0-0.8); MONO % 7.6 % (0.0-5.0); NEUTROPHILS # 4.2 10^3/uL (1.5-8.5); NEUTROPHILS % 63.7 % (36.0-66.0); PLATELET COUNT, AUTOMATED 140 10^3/uL (150-450); RED BLOOD COUNT 3.92 10^6/uL (4.00-5.40); WHITE BLOOD COUNT 6.6 10^3/uL (4.0-10.0)
[2020-10-29 13:14] LABS: HEMOGLOBIN 11.6 g/dl (12.0-15.5)
--- NOTE | 2020-10-29 14:17 | REP ---
INDICATION: SBO. COMPARISON: 10/28/2020. TECHNIQUE: Single AP view of abdomen and pelvis performed. FINDINGS: No significantly dilated small bowel loops are seen radiographically. The previously noted moderate small bowel dilatation in the left abdomen has essentially resolved. Contrast material is again seen in the urinary bladder. Is a gastric tube is grossly unchanged in position. There are degenerative changes of the spine. IMPRESSION: Previously noted small bowel dilatation radiographically appears to have resolved. <Electronically signed by Bebeto Valero > 10/29/20 [id number]
--- NOTE | 2020-10-29 20:45 | IPN ---
PROGRESS NOTE DATE: 10/29/2020 HISTORY: Patient was admitted with signs of a small bowel obstruction that appeared to have a transition point in the left mid abdomen in the general vicinity of the edge of a piece of implanted prosthetic mesh for a prior hernia repair. She reports that she has passed some flatus today. She has her nasogastric (NG) tube in place and the output appears to have decreased. She denies any significant abdominal pain currently and is more concerned about the discomfort of the NG tube. VITAL SIGNS: Patient has been afebrile over the past 24 hours. Her pulse is in the 70s and 80s and her blood pressure is much improved today on her usual medications. Pulse oximetry is 100% on two liters of nasal cannula oxygen. Intake and output shows that yesterday she had 800 recorded in although I believe that is missing a lot of her IV fluid and she has no IV fluid recorded for today though it is running at 125 mL/hour. She had 2500 mL recorded from her NG tube yesterday but only 500 so far today. She has an acceptable urine output. PHYSICAL EXAMINATION: Patient is lying quietly in the hospital bed. She is alert and oriented. Skin is warm and dry. Heart exam shows a regular rhythm. Lungs are clear. The abdomen is mildly obese. She has bowel sounds present. The abdomen is soft throughout with no tenderness. She does have some bruising from her subcutaneous heparin. IMPRESSION: Patient has had resolution of her pain and her abdomen is nontender. Her nasogastric (NG) output has diminished. I ordered a followup KUB and complete blood count (CBC). Her white count is normal with a normal differential now and her KUB shows resolution of her dilated small bowel loop on the left. PLAN: I will clamp her nasogastric (NG) tube. I will let her take a few sips of water and ice chips. If she tolerates this well, I will discontinue her NG tube later and start her on clear liquids. Her other medications will continue.
[2020-10-29] MEDS ORDERED: ACETAMINOPHEN TAB 650MG DOSE (2X325MG) PO PRN (21:15)
[2020-10-29] MEDS: lisinopriL 20 MG TAB PO SCH (21:23)
[2020-10-29] MEDS: LATANOPROST 0.005% OPHTH SOLN 2.5 ML OU SCH (21:26)
[2020-10-29] MEDS: NORCO, ANEXSIA 5/325MG TABLET (HYDROcodone/ACETAMINOPHEN) PO PRN (22:13)
[2020-10-30] VITALS (7 sets, daily range): BP systolic 146–170; BP diastolic 72–95
[2020-10-30] MEDS: LR 1,000 ML IV SCH (05:05)
[2020-10-30] MEDS ORDERED: LEVOTHYROXINE 50MCG TABLET (0.05MG) PO SCH (06:00)
[2020-10-30] MEDS: PANTOPRAZOLE 40MG VIAL (C9113 PER 1) IV SCH (08:44)
[2020-10-30] MEDS: METOPROLOL SUCC *XL* 25MG TAB (TopROL *XL*) PO SCH (08:45)
[2020-10-30] MEDS: HEPARIN SOD (PORCINE) 5000UNITS/ML 1ML VIAL/SYRINGE SC SCH (08:45)
[2020-10-30] MEDS: lisinopriL 40 MG TAB PO SCH (08:46)
[2020-10-30] MEDS: diltiaZEM **CD** 180 MG CAP PO SCH (08:46)
[2020-10-30] MEDS: NORCO, ANEXSIA 5/325MG TABLET (HYDROcodone/ACETAMINOPHEN) PO PRN ×2 (08:47→18:03)
[2020-10-30] MEDS ORDERED: ASPIRIN 81 MG ENTERIC TAB PO SCH (09:00)
[2020-10-30] MEDS ORDERED: DULoxetine 30 MG CAP (CYMBALTA) PO SCH (09:00)
[2020-10-30] MEDS ORDERED: ATORVASTATIN 20 MG TAB PO SCH (09:00)
[2020-10-30] MEDS ORDERED: SUMAtriptan SUCCINATE 25 MG TAB PO PRN (13:00)
--- NOTE | 2020-10-30 13:32 | HPE ---
HISTORY AND PHYSICAL DATE OF ADMISSION: 10/28/2020 ADMITTING DIAGNOSIS: Small intestinal obstruction. HISTORY OF PRESENT ILLNESS: The patient is a 75-year-old woman who presented to the emergency department on the evening of October 27 complaining of a week nausea and vomiting with abdominal discomfort. She reports that she has been unable to keep anything down. She has had nausea and recurrent vomiting. She does report passage of small amounts of flatus at times. Her last bowel movement was 2 days ago. She has had no fevers or chills. She reports that her urine output seems to be diminished. She has been trying to force herself to eat and drink despite her vomiting. She reports that on occasion she has kept down some liquids. In the emergency department, she underwent evaluation with a CT scan of the abdomen and pelvis, which shows some mildly to moderately dilated proximal small bowel loops with decompressed bowel loops in the lower and right lower abdomen. The radiologist felt it was an abrupt transition point near some abdominal wall mesh on the left side of the abdomen. His impression was that there was a small bowel obstruction. I was asked to evaluate the patient and she is now admitted for further management. ALLERGIES: Reported to PENICILLIN, SULFUR, TETRACYCLINE and ARITHROMYCIN with a report that they have all caused hives. She reports itching with the administration of morphine. MEDICATIONS: The patient's current medications include aspirin 81 mg by mouth daily, atorvastatin 80 mg by mouth daily, vitamin D3 1000 units by mouth daily, diltiazem 180 mg extended release by mouth twice daily, duloxetine 60 mg by mouth daily, hydrochlorothiazide 12.5 mg by mouth every Friday, Friday and Friday, hydrocodone/acetaminophen 10/325 mg tablets one three times daily, Xalatan eye drops one drop in both eyes every night at bedtime, levothyroxine 50 mcg by mouth every morning, lisinopril 20 mg by mouth daily at bedtime and 40 mg by mouth every morning, metoprolol 75 mg by mouth daily, omeprazole 40 mg by mouth daily, potassium gluconate 99 mg tablets once daily, sumatriptan succinate 100 mg by mouth as needed for migraine and vitamin E 400 units daily. MEDICAL HISTORY: Significant for some chronic obstructive pulmonary disease (COPD) and obstructive sleep apnea. She reports that she uses oxygen 2 liters by nasal cannula every night, but does not require any oxygen during the day. She has a history of hypertension. She has thyroidism. She has a history of fibromyalgia. She has chronic back pain and has been seen by a pain clinic in [place]. She had undergone a cardiac catheterization in [place] in 2016, which she reports showed no significant problems. She has glaucoma. She does have a history of chronic kidney disease stage III. She has osteoarthritis and has had a left knee replacement. SURGICAL HISTORY: Significant for appendectomy in 1965. She had a hysterectomy when she was 29 and had her ovaries removed several years later. She had left wrist fracture in 2011. She had a left knee replacement in 2009. 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 She subsequently had two hernia repairs also performed in [place] with placement of mesh along the midline as demonstrated on her current CT scan. She had a colonoscopy and upper endoscopy in March of 2019 here at [facility]. FAMILY HISTORY: Noncontributory. SOCIAL HISTORY: The patient is . She is a former smoker. She denies any significant alcohol intake. REVIEW OF SYSTEMS: The patient denies any history of seizure, stroke or transient ischemic attack (TIA). She has no chest pain or palpitations. She reports no history of myocardial infarction. She does have some dyspnea on exertion. She has some problems with sinusitis and nasal drainage. She denies any dysuria or hematuria. She has had no diarrhea or serious constipation recently. She has had no history of melena or hematochezia and denies any hemoptysis with her vomiting recently. She does have some bone and joint issues and chronic back pain. She normally ambulates with a cane in her house. She denies any history of deep venous thrombosis (DVT) or pulmonary embolus. PHYSICAL EXAMINATION: Reveals a pleasant overweight, older woman lying quietly on the ER stretcher. She just had the NG tube placed and she is not happen about that. Her most recent vital signs show a pulse of 87, blood pressure most recently was 182/91, her respirations were 16 and her oxygen saturation is 99%. Skin is warm and dry. Sclerae are anicteric. Mucous membranes are somewhat tacky. The neck is without palpable mass and there are no cervical bruits. Heart examination shows a regular rhythm without murmur. Lungs show somewhat distant but clear breath sounds bilaterally. The abdomen is mildly to moderately obese. She has a long midline scar. She has some bowel sounds present. She is mildly tender in the left mid abdomen to palpation. She does have a somewhat softer area by the umbilicus and along the midline where there is some abdominal wall weakness. There is no palpable mass. Extremities are without significant edema. She has palpable radial and pedal pulses. LABORATORY STUDIES: Include a complete blood count (CBC) that shows a white count of 10, hemoglobin 14, hematocrit of 44 and a platelet count of 171,000. Differential count shows 81% neutrophils, 10% lymphocytes and 6% monocytes. Chemistry panel shows normal electrolytes with the exception of a Co2 of 33. Her BUN is 21, creatinine 1.1 and a glucose of 172. Liver function tests are all normal. Troponin is normal and her lipase 122. Her COVID test along with her influenza and RSB testing are all normal and negative. She had a chest x-ray that showed no acute infiltrate effusion or pneumothorax. A CT scan of the abdomen and pelvis was obtained. This showed absence of her uterus. There is bowel anastomosis noted low in the mid abdomen. She has pieces of prosthetic material clearly in the mid portion of the abdomen along the midline. This may begin just at her umbilicus and extends superiorly. Her stomach is fill of fluid. There are some dilated proximal small bowel loops particularly in the left upper quadrant and left mid abdomen. The lower abdomen shows only decompressed small bowel loops. IMPRESSION: 1. Small-bowel obstruction likely secondary to adhesions. 2. Hypertension. 3. Chronic obstructive pulmonary disease. 4. Obstructive sleep apnea. 5. Hypothyroidism. 6. Chronic back pain. 7. Osteoarthritis. 8. History of fibromyalgia. 9. Chronic kidney disease stage III. 10.Status post bowel resection for ischemic colitis. PLAN: The patient has had an NG tube placed in the emergency department. This will be continued for now. She will receive maintenance IV fluid. She will receive pain medication as necessary for her abdominal discomfort. She will receive IV levothyroxine for her hypothyroidism. I will try to give her several of her antihypertensives orally and clamp her NG tube, but if this proves unworkable or ineffective, then we may need to administer intravenous medications for her blood pressure. The patient was counseled that her bowel obstruction is most likely related to scar tissue from her prior surgery. I advised her that this may resolve spontaneously with nonoperative management or it may require surgery to lyse adhesions and fix her small-bowel obstruction. She had an opportunity to ask questions and is agreeable with the plan for care.
--- NOTE | 2020-10-30 14:24 | IPN ---
PROGRESS NOTE DATE: 10/28/2020 HISTORY: Patient was admitted very early this morning with signs and symptoms of an intestinal obstruction. An nasogastric (NG) tube was placed in the emergency department. She did not leave the emergency department until mid morning today and was moved to [facility]. She is not having much abdominal pain but has been complaining of nausea. She has remained hypertensive as well. Vital signs show that she has had a maximum temperature of 100.1 this morning. Her pulse is in the 60s and 70s, and her blood pressure has ranged up to 194/98 most recently. Intake and output show that she had 1 liter of fluid from her NG tube overnight into this morning. She has been voiding at least once. PHYSICAL EXAMINATION: Patient is sitting up on the side of the bed. The NG tube has a small amount of light yellowish fluid in the tubing, and in the canister there is about 200 mL. She is awake and alert. HEART: Shows a regular rhythm. LUNGS: Sounds are distant. ABDOMEN: Perhaps mildly distended but soft, and she has some bowel sounds present. LABORATORY STUDIES: This morning she had a repeat medical profile at 11 o'clock showing a sodium of 142, potassium 3.6, chloride 103, CO2 of 31, BUN of 23, creatinine 1.1, and a glucose of 132. IMPRESSION: Patient is doing acceptably at this point. Her blood pressure remains quite up, and I am going to readjust her medications. If necessary I will consult the hospitalist to assist in management. I will check a KUB early this afternoon to reassess her bowel-gas pattern but will continue her NG tube and keep her nothing by mouth for now.
== END 2020-10-30 20:15 | disposition home or self-care (01) | DRG 390 ==
LOC: M ED 20:12 → M ED INP 10-28 02:25 → ENRESERV 10-28 07:46 → M MS5PR 10-28 09:35
PROVIDERS: ADMIT Surgery; ATTEND Surgery
DX: K56.609 Unspecified intestinal obstruction, unspecified as to partial versus complete obstruction (principal); N18.30 Chronic kidney disease, stage 3 unspecified; I12.9 Hypertensive chronic kidney disease with stage 1 through stage 4 chronic kidney disease, or unspecified chronic kidney disease; Z88.0 Allergy status to penicillin; Z88.2 Allergy status to sulfonamides; Z88.8 Allergy status to other drugs, medicaments and biological substances; Z88.5 Allergy status to narcotic agent; Z79.82 Long term (current) use of aspirin; Z79.899 Other long term (current) drug therapy; J44.9 Chronic obstructive pulmonary disease, unspecified; M19.90 Unspecified osteoarthritis, unspecified site; G47.33 Obstructive sleep apnea (adult) (pediatric); M79.7 Fibromyalgia; E03.9 Hypothyroidism, unspecified

== ENCOUNTER → 2020-11-30 | Outpatient (REF) | payer MEDICARE ==
[~2020-11-30] MED LIST changes: -AMIT25TA PO; +AMIT25TA17 PO; +ASPI81TA26 PO; +D31000TA2 PO; +XALA0.007 OU
[2020-11-30 14:17] LABS: ALBUMIN 4.2 GM/DL (3.2-5.2); BILIRUBIN,TOTAL 0.5 MG/DL (0.2-1.0); CALCIUM LEVEL 9.4 MG/DL (8.8-10.2); CHOLESTEROL RISK RATIO 2.589 (<5); CREATININE FOR GFR 0.98 MG/DL (0.55-1.30); GLOMERULAR FILTRATION RATE 59.1 (>39); POTASSIUM SERUM 4.1 MEQ/L (3.5-5.1); THYROID STIMULATING HORMONE 0.93 uIU/ML (0.358-3.740); TOTAL PROTEIN 6.8 GM/DL (6.4-8.2)
== END ==
LOC: M SFHCLERA 11:59
PROVIDERS: ATTEND Family Medicine
DX: E03.9 Hypothyroidism, unspecified (principal); E78.5 Hyperlipidemia, unspecified

== ENCOUNTER → 2020-11-30 | Outpatient (CLI) | payer MEDICARE ==
--- NOTE | 2020-11-30 12:08 | REPMRS ---
Patient History The patient states she has not had a clinical breast exam in over a year. No known family history of cancer. 3D TOMOSYNTHESIS WAS PERFORMED. [facility] lifetime risk for breast cancer is 1.9%. Volpara breast density b. Digital Woman Screen Mammo: November 30, 2020 - Exam #: [id number] Bilateral CC and MLO view(s) were taken. Technologist: La Nena Jack, Technologist Prior study comparison: June 28, 2019, bilateral digital woman screen mammo performed at [facility]. January 20, 2018, digital woman screen mammo performed at [facility]. FINDINGS: There are scattered fibroglandular densities. There has been no change in the appearance of the mammogram from the prior studies. There is a mild amount of residual fibroglandular tissue which is fairly symmetric. There is no interval development of dominant mass, architectural distortion, or clustered microcalcification suggestive of malignancy. Assessment: BI-RADS/ACR category 1 mammogram. Negative Mammogram. Recommendation Routine screening mammogram in 1 year (for women over age 40). This mammogram was interpreted with the aid of an FDA-approved computer-aided dectection system. Electronically Signed By: Bebeto Valero MD 11/30/20 5703
== END ==
LOC: M WHC 11:27
PROVIDERS: ATTEND Family Medicine
DX: Z12.31 Encounter for screening mammogram for malignant neoplasm of breast (principal); E03.9 Hypothyroidism, unspecified; E78.5 Hyperlipidemia, unspecified

== ENCOUNTER 2021-02-19 14:47 | Inpatient (IN) | payer MEDICARE ==
[~2021-02-19] VITALS: Ht 170.2 cm; Wt 88.6 kg
[~2021-02-19 14:47] MED LIST changes: -LISI-538 PO; +LISI20TA33 PO; -LISI40TA PO; +LISI40TA4 PO
[2021-02-19] MEDS ORDERED: IRON15CH PO (15:08)
[2021-02-19] MEDS ORDERED: TRAZ-257 PO (15:08)
[2021-02-19] MEDS ORDERED: ONDANSETRON 4MG/2ML VIAL IV ONE (15:20)
[2021-02-19] MEDS ORDERED: HYDROMORPHONE HCL 0.5 MG/ 0.5 ML SYRINGE (J1170 PER 1) IV ONE (15:20)
[2021-02-19] MEDS: GASTROGRAFIN SOLUTION 30ML PO SCH ×2 (16:39→17:13)
[2021-02-19 17:11] LABS: ALBUMIN 4.2 GM/DL (3.2-5.2); ALT/SGPT 37 U/L (12-78); BILIRUBIN,DIRECT 0.2 MG/DL (0.0-0.2); BILIRUBIN,TOTAL 0.6 MG/DL (0.2-1.0); BLOOD UREA NITROGEN 23 MG/DL (7-18); CALCIUM LEVEL 9.4 MG/DL (8.8-10.2); CARBON DIOXIDE LEVEL 31 MEQ/L (21-32); CHLORIDE LEVEL 106 MEQ/L (98-107); CK-MB VALUE MASS 1.5 NG/ML (<3.6); CPK CREATINE PHOSPHOKINASE 106 U/L (26-192); CREATININE FOR GFR 0.82 MG/DL (0.55-1.30); GLOMERULAR FILTRATION RATE > 60.0 (>39); GLUCOSE, FASTING 112 MG/DL (70-100); LIPASE 239 U/L (73-393); MB/CK RELATIVE INDEX 1.42 (< OR =4); POTASSIUM SERUM 3.9 MEQ/L (3.5-5.1); SODIUM LEVEL 143 MEQ/L (136-145); TROPONIN I < 0.02 NG/ML (< 0.10)
[2021-02-19 17:14] LABS: BASO % 0.3 % (0.0-1.0); EOS # 0.5 10^3/uL (0.0-0.5); EOS % 3.4 % (0.0-3.0); HEMATOCRIT 43.6 % (36.0-47.0); HEMOGLOBIN 14.5 g/dl (12.0-15.5); LYMPH # 1.1 10^3/uL (1.5-5.0); LYMPH % 8.3 % (24.0-44.0); MEAN CORPUSCULAR HEMOGLOBIN 31.3 pg (27.0-33.0); MEAN CORPUSCULAR HGB CONC 33.3 g/dl (32.0-36.5); MONO % 7.9 % (2.0-8.0); NEUTROPHILS # 10.5 10^3/uL (1.5-8.5); NEUTROPHILS % 79.7 % (36.0-66.0); PLATELET COUNT, AUTOMATED 203 10^3/uL (150-450); RED BLOOD COUNT 4.64 10^6/uL (4.00-5.40); WHITE BLOOD COUNT 13.1 10^3/uL (4.0-10.0)
[2021-02-19] MEDS ORDERED: ISOVUE-370 76% 100ML VIAL As Ordered ONE (17:14)
--- NOTE | 2021-02-19 18:42 | REPVR ---
PROCEDURE INFORMATION: Exam: CT Abdomen And Pelvis With Contrast Exam date and time: 02/19/2021 5:32 PM Age: 75 years old Clinical indication: Abdominal pain; Generalized; Additional info: Abd pain, vomiting TECHNIQUE: Imaging protocol: Computed tomography of the abdomen and pelvis with contrast. Radiation optimization: All CT scans at this facility use at least one of these dose optimization techniques: automated exposure control; mA and/or kV adjustment per patient size (includes targeted exams where dose is matched to clinical indication); or iterative reconstruction. Contrast material: ISOVUE 370; Contrast volume: 100 ml; Contrast route: INTRAVENOUS (IV); COMPARISON: CT ABD/PEL W/IV CONTRAST ONLY 10/27/2020 10:14 PM FINDINGS: Lungs: There is minimal bibasilar atelectasis or scar. Small hiatal hernia containing a small amount of oral contrast. Liver: Diffuse fatty liver change has resolved. Gallbladder and bile ducts: Normal. No calcified stones. No ductal dilation. Pancreas: Normal. No ductal dilation. Spleen: Normal. No splenomegaly. Adrenal glands: Normal. No mass. Kidneys and ureters: There is bilateral renal atrophy. 5.2 cm simple cyst in the upper pole left kidney. 1.7 cm simple cyst in the lower pole right kidney. Smaller hypodense lesions on the right measuring as little as 3 mm and on the left measuring as little as 5 mm, too small to characterize but stable and most likely simple cysts. No hydronephrosis. Stomach and bowel: The stomach is distended with contrast and air with only a small amount of food debris. In contrast, the duodenum is collapsed. There are dilated loops of bowel in the left abdomen, some of which are small bowel loops containing air-fluid levels as well as segments with fecal material suggesting a combination of partial obstruction and stasis. There is also a small amount of interloop fat stranding and interloop fluid transition point appears to be in the left lower quadrant, to normal caliber small bowel loops. There is a narrowed segment of mid to distal transverse colon in the left abdomen. Appendix: Appendix is not seen. No pericecal inflammatory process. Intraperitoneal space: See stomach and bowel section. Vasculature: There is calcified atherosclerotic plaque in the abdominal aorta and medium-sized arteries in the abdomen and pelvis. No aortic aneurysm. Lymph nodes: Unremarkable. No enlarged lymph nodes. Urinary bladder: Unremarkable as visualized. Reproductive: Unremarkable as visualized. Bones/joints: Unremarkable. No acute fracture. Soft tissues: Segments of surgical mesh from prior ventral abdominal wall hernia repair. Residual or recurrent broad mouthed rectus diastasis abdominal wall hernia. Prior midline abdominal incision. IMPRESSION: 1. Recurrent proximal to mid small bowel obstruction with dilated loops of small bowel in the left abdomen, small amount of interloop fluid as well as interloop fat stranding, and some segments with fecal material suggesting stasis. Transition point appears to be in the left lower abdomen. This could be from adhesions, although closed loop obstruction is not excluded. 2. Narrowed segment of mid to distal transverse colon near the transition point in the small bowel, but no significant upstream obstruction. 3. Prior ventral abdominal wall hernia repair, with residual broad mouth rectus diastasis abdominal wall hernia. 4. Gastric distension with collapsed duodenum. This may represent gastroparesis or partial gastric outlet obstruction. 5. Simple cysts in the kidneys. Some of the lesions are too small to characterize, but are unchanged and statistically most likely cysts. No further imaging follow-up necessary. COMMENT: Consistent with the [employer]'s Incidental Findings Committee Report (J Am Moe Radiol 2010): Unless the patient's specific circumstances suggest otherwise, any liver lesion 0.5 cm or less, any cystic kidney lesion less than 1.0 cm, and/or any adrenal lesion 1.0 cm or less not otherwise characterized in this report as possessing suspicious or indeterminate imaging features is/are highly likely to be benign and do not require follow-up imaging or biopsy. Electronically signed by: Edelmira Moreno On 02/19/2021 18:42:34 PM
[2021-02-19] MEDS ORDERED: NS 1,000 ML IV SCH (18:51)
[2021-02-19] MEDS ORDERED: METO1TAB7 PO (19:07)
[2021-02-19] MEDS ORDERED: IRON65TA2 PO (19:07)
[2021-02-19] MEDS ORDERED: DOCU100C17 PO (19:07)
[2021-02-19] MEDS ORDERED: MAALOX 30 ML SUSP *UDC PO PRN (19:30)
[2021-02-19] MEDS ORDERED: SUMAtriptan SUCCINATE 25 MG TAB PO PRN (19:30)
[2021-02-19] MEDS ORDERED: MOM 30ML SUSPENSION UDC PO PRN (19:30)
[2021-02-19] MEDS ORDERED: ACETAMINOPHEN TAB 650MG DOSE (2X325MG) PO PRN (19:30)
[2021-02-19] MEDS ORDERED: KETOROLAC 30 MG/ML 1ML VIAL IV PRN (19:35)
[2021-02-19] MEDS ORDERED: NORCO, ANEXSIA 5/325MG TABLET (HYDROcodone/ACETAMINOPHEN) PO PRN (19:35)
--- NOTE | 2021-02-19 20:06 | HPEPDOC ---
[facility] Medical History & Physical Date of Admission Feb 19, 2021 Date of Service: Feb 19, 2021 Attending Physician: PAIGE CHUNG MD History and Physical CHIEF COMPLAINT: [This is a 75 y/o white female who presents with chief complaint of abd pain x1 day.] HISTORY OF PRESENT ILLNESS: [This is a 75 year old white female with a pmh of COPD, VINCENZO, GERD, HTN, CKD and very distant etoh disorder, who presents after developing acute onset abdominal pain mainly in her epigastrum that radiates to her suprapubic region, but is sore everywhere. Patient states that yesterday she felt fine and had regular bowel movements, no diarrhea, melena. Patient states that she [place] she also suffered a small bowel obstruction, and said since this felt similar, she wanted to come to the ED for evaluation. Patient states that on top of the abdominal pain, she is experiencing nausea and has had two episodes of non-bloody emesis. Patient denies fever, chills, chest pain, sob, dysuria, dizziness, lightheadedness. Patient also complains of acute onset left hip pain that radiates down her leg. Patient states that she has had episodes of this pain in the past but is concerned because it is happening at the same time as her current issues. Patient thinks the pain may come from her back but is not normal for her and states that the pain is not subsiding. Denies paresthesias.] PAST MEDICAL HISTORY: 1. [See HPI PAST SURGICAL HISTORY: 1. [Hernia repair]. 2. [Colon resection]. 3. [Appendectomy 4. Hysterctomy 5. Unspecified back surgery 6. Left knee total arthroplasty]. SOCIAL HISTORY: Tobacco use:[Former] ETOH: [Distant hx of etoh abuse, states she has had maybe one beer in the past year] Illicit drug use: [Denies] FAMILY HISTORY: Mother: [Gastric ca] ALLERGIES: Please see below. REVIEW OF SYSTEMS: CONSTITUTIONAL: [See HPI]. HEENT: [Denies URI sx]. CARDIOVASCULAR: [See HPI]. RESPIRATORY: [See HPI]. GASTROINTESTINAL: [See HPI]. GENITOURINARY: [See HPI]. SKIN: [Denies rash]. MUSCULOSKELETAL: [See HPI]. NEUROLOGICAL: [See HPI]. ENDOCRINE: [Denies hx of DM]. HEMATOLOGIC/LYMPHATIC: [Denies easy bruising]. HOME MEDICATIONS: Please see below. PHYSICAL EXAMINATION: VITAL SIGNS: See Below GENERAL APPEARANCE: [This is an uncomfortably feeling 75 y/o white female. She is laying in bed in mild distress due to pain]. HEENT: [No mass or lesion. EOMI. No scleral icterus. Nares patent. Oral mucosa dry]. CARDIOVASCULAR: [Regular rate, rhythm. No murmurs, rubs gallops]. LUNGS: [Clear to auscultation. No wheezing, rales, rhonchi]. ABDOMEN: [Soft, non-tender.]. MUSCULOSKELETAL: [No joint deformity noted.]. EXTREMITIES: [No peripheral edema. No clubbing, cyanosis]. NEUROLOGICAL: [Speech clear. A+Ox3. No focal deficits.]. PSYCHIATRIC: [Mood and affect appear appropriate]. LABORATORY DATA: See below. IMAGING: [CT Abd/pelvis: FINDINGS: Lungs: There is minimal bibasilar atelectasis or scar. Small hiatal hernia containing a small amount of oral contrast. Liver: Diffuse fatty liver change has resolved. Gallbladder and bile ducts: Normal. No calcified stones. No ductal dilation. Pancreas: Normal. No ductal dilation. Spleen: Normal. No splenomegaly. Adrenal glands: Normal. No mass. Kidneys and ureters: There is bilateral renal atrophy. 5.2 cm simple cyst in the upper pole left kidney. 1.7 cm simple cyst in the lower pole right kidney. Smaller hypodense lesions on the right measuring as little as 3 mm and on the left measuring as little as 5 mm, too small to characterize but stable and most likely simple cysts. No hydronephrosis. Stomach and bowel: The stomach is distended with contrast and air with only a small amount of food debris. In contrast, the duodenum is collapsed. There are dilated loops of bowel in the left abdomen, some of which are small bowel loops containing air-fluid levels as well as segments with fecal material suggesting a combination of partial obstruction and stasis. There is also a small amount of interloop fat stranding and interloop fluid transition point appears to be in the left lower quadrant, to normal caliber small bowel loops. There is a narrowed segment of mid to distal transverse colon in the left abdomen. Appendix: Appendix is not seen. No pericecal inflammatory process. Intraperitoneal space: See stomach and bowel section. Vasculature: There is calcified atherosclerotic plaque in the abdominal aorta and medium-sized arteries in the abdomen and pelvis. No aortic aneurysm. Lymph nodes: Unremarkable. No enlarged lymph nodes. Urinary bladder: Unremarkable as visualized. Reproductive: Unremarkable as visualized. Bones/joints: Unremarkable. No acute fracture. Soft tissues: Segments of surgical mesh from prior ventral abdominal wall hernia repair. Residual or recurrent broad mouthed rectus diastasis abdominal wall hernia. Prior midline abdominal incision. IMPRESSION: 1. Recurrent proximal to mid small bowel obstruction with dilated loops of small bowel in the left abdomen, small amount of interloop fluid as well as interloop fat stranding, and some segments with fecal material suggesting stasis. Transition point appears to be in the left lower abdomen. This could be from adhesions, although closed loop obstruction is not excluded. 2. Narrowed segment of mid to distal transverse colon near the transition point in the small bowel, but no significant upstream obstruction. 3. Prior ventral abdominal wall hernia repair, with residual broad mouth rectus diastasis abdominal wall hernia. 4. Gastric distension with collapsed duodenum. This may represent gastroparesis or partial gastric outlet obstruction. 5. Simple cysts in the kidneys. Some of the lesions are too small to characterize, but are unchanged and statistically most likely cysts. No further imaging follow-up necessary ADDENDUM REPORT 1 Additional findings for the bones and joints section: Sclerotic lesion at the T12 vertebral body with ill-defined margins posterior inferiorly and mixed lytic and sclerotic lesion abutting the endplate at the inferior aspect of L2 and L3 unchanged persistent large predominantly lucent lesion occupying the L3 vertebral body with vertical bands of sclerosis typical of a vertebral hemangioma, unchanged. This again appears slightly expansile along the posterior margin. Persistent mild anterior compression deformity of T11, unchanged. All of these findings are stable.] MICROBIOLOGY: Please see below. ASSESSMENT: [This is a 75 year old female with a hx of several abdominal surgeries and previous SBO who presented to the ED with complaint of acute abdominal pain and distention. Patient has been having poor oral intake today due to her symptoms and appears obviously uncomfortably. CT abd performed in the ER as above shows acute SBO with what may be the transition point. ]. . PLAN: 1. [SBO - Will begin NG tube for decompression - Small amounts of water and ice chips and meds only by mouth - Dr. Zimmerman, surgery, has been made aware of this patient by ED staff and will be following. We thank them for the assistance - Will give zofran for nausea/vomiting, toradol for moderate pain, norco for severe pain - Will begin IVF as patient has had poor oral intake - will continue patient's at home omeprazole 2. L Hip pain - Likely chronic, but patient complains of acute exacerbation. Patient is s/p total knee replacement on this side - Pelvis x-ray, venous duplex ordered to r/o acute process 3. Leukocytosis - Likely inflammatory, patient has no other sirs criteria at this time that would concern us for sepsis. Clinical picture does not seem infection related, and no infectious process was appreciated on ct abdomen - Will check again tomorrow morning 4. COPD - stable, will continue patient's at home oxygen of 2L at night 5. VINCENZO - oxygen at night, as stated 6. HTN - continue at home lisinopril, metoprolol, hctz 7. Dyslipidemia - continue atorvastatin, asa 8. Hypothyroidism - continue levothyroxine 9. Depression - continue cymbalta, trazodone 10. Hx migraines - continue sumatriptan q2h prn two doses max 10. DVT prophylaxis - heparin ordered]. Vital Signs Vital Signs Date Time Temp Pulse Resp B/P (MAP) Pulse Ox O2 Delivery O2 Flow Rate FiO2 02/19/21 16:50 18 02/19/21 16:45 02/19/21 14:48 97.0 74 99 Room Air Laboratory Data Labs 24H Laboratory Tests 2 02/19/21 16:14: Immature Granulocyte % (Auto) 0.4, Neutrophils (%) (Auto) 79.7H, Lymphocytes (%) (Auto) 8.3L, Monocytes (%) (Auto) 7.9, Eosinophils (%) (Auto) 3.4H, Basophils (%) (Auto) 0.3, Neutrophils # (Auto) 10.5H, Lymphocytes # (Auto) 1.1L, Monocytes # (Auto) 1.0H, Eosinophils # (Auto) 0.5, Basophils # (Auto) 0.0, Nucleated Red Blood Cells % (auto) 0.0, Anion Gap 6L, Glomerular Filtration Rate > 60.0, Calcium Level 9.4, Total Bilirubin 0.6, Direct Bilirubin 0.2, Aspartate Amino Transf (AST/SGOT) 29, Alanine Aminotransferase (ALT/SGPT) 37, Alkaline Phosphatase 119H, Total Creatine Kinase 106, Creatine Kinase MB 1.5, Creatine Kinase MB Relative Index 1.42, Troponin I < 0.02, Total Protein 7.0, Albumin 4.2, Albumin/Globulin Ratio 1.5, Lipase 239 CBC/BMP Laboratory Tests 02/19/21 16:14 Home Medications Scheduled Aspirin (Aspirin EC) 81 Mg Tablet.dr, 81 MG PO DAILY Atorvastatin Calcium (Atorvastatin Calcium) 80 Mg Tab, 80 MG PO DAILY Diltiazem Hcl (Diltiazem 24Hr ER) 180 Mg Cap.er.24h, 180 MG PO BID Docusate Sodium (Docusate Sodium) 100 Mg Capsule, 200 MG PO DAILY Duloxetine Hcl (Cymbalta) 60 Mg Cap, 60 MG PO DAILY Ferrous Sulfate (Iron) 325 Mg Tablet, 325 MG PO DAILY Hydrochlorothiazide (Hydrochlorothiazide) 12.5 Mg Tab, 12.5 MG PO 3XW FRIDAY, FRIDAY, AND FRIDAY Latanoprost (Xalatan) 0.005% 2.5ML Drops, 1 DROP OU QHS Levothyroxine Sodium (Levothyroxine Sodium) 50 Mcg Tablet, 50 MCG PO QAM Lisinopril (Lisinopril) 20 Mg Tab, 20 MG PO QHS Lisinopril (Lisinopril) 20 Mg Tablet, 40 MG PO QAM Metoprolol Succinate (Metoprolol Succinate) 50 Mg Tab.er.24h, 75 MG PO DAILY Omeprazole (Omeprazole) 40 Mg Cap, 40 MG PO DAILY Potassium Gluconate (Potassium) 99 Mg Tablet, 99 MG PO DAILY Trazodone HCl (Trazodone HCl) 100 Mg Tablet, 100 MG PO QHS Vitamin E (Dl,Tocopheryl Acet) (Vitamin E) 400 Unit Capsule, 400 UNIT PO DAILY Scheduled PRN Sumatriptan Succinate (Sumatriptan Succinate) 100 Mg Tab, 100 MG PO PRN PRN for HEADACHE Allergies Coded Allergies: Penicillins (Verified Allergy, Intermediate, HIVES, 03/19/19) morphine (Verified Allergy, Intermediate, ITCHING, 03/19/19) tetracycline (Verified Allergy, Intermediate, HIVES, 03/19/19) Sulfa (Sulfonamide Antibiotics) (Verified Allergy, Unknown, HIVES, 03/25/19) erythromycin base (Verified Allergy, Unknown, HIVES, 03/25/19) A-FIB/CHADSVASC A-FIB History Current/History of A-Fib/PAF?: No MARIO JONES Feb 19, 2021 20:06
[2021-02-19 20:40] LABS: RSV AMPLIFICATION NEGATIVE (NEGATIVE)
[2021-02-19] MEDS: ONDANSETRON 4MG/2ML VIAL IV PRN (20:40)
[2021-02-19] MEDS ORDERED: traZODone 100 MG TAB PO SCH (21:00)
[2021-02-19] MEDS: LATANOPROST 0.005% OPHTH SOLN 2.5 ML OU SCH (21:00)
[2021-02-19] MEDS ORDERED: HYDROmorphone HCL 2 MG/ML 1ML VIAL (J1170) IV PRN (22:05)
--- NOTE | 2021-02-19 22:10 | REPVR ---
PROCEDURE INFORMATION: Exam: XR Bilateral Hips Exam date and time: 02/19/2021 7:41 PM Age: 75 years old Clinical indication: Hip pain; Right hip; Additional info: R hip pain TECHNIQUE: Imaging protocol: XR bilateral hips. Views: 2 views of hips with pelvis when performed. COMPARISON: CT ABD/PEL W/IV ORAL CONTRAS 02/19/2021 5:28 PM FINDINGS: Bones/joints: Osteopenia. Mild bilateral hip joint osteoarthrosis. No radiographic evidence or dislocation. Alignment anatomic. Degenerative changes of the lower lumbar spine, sacroiliac this and pubic symphysis. Soft tissues: Grossly unremarkable. IMPRESSION: No acute radiographic findings. Electronically signed by: Mann Gibbs On 02/19/2021 22:10:26 PM
--- NOTE | 2021-02-19 22:13 | REPVR ---
PROCEDURE INFORMATION: Exam: US Duplex Lower Extremity Veins, Bilateral Exam date and time: 02/19/2021 9:36 PM Age: 75 years old Clinical indication: Pain; Leg, upper and leg, lower; Bilateral; Additional info: Left hip/thigh/knee pain TECHNIQUE: Imaging protocol: Real-time duplex ultrasound of the extremities with 2-D pringle scale, color Doppler flow and spectral waveform analysis with image documentation. Complete exam focused on the bilateral lower extremity veins. COMPARISON: No relevant prior studies available. FINDINGS: Right deep veins: Unremarkable. The common femoral, femoral and popliteal veins are patent without thrombus. Normal Doppler waveforms. Normal compressibility and/or augmentation response. Right superficial veins: Saphenofemoral junction is patent without thrombus. Left deep veins: Unremarkable. The common femoral, femoral and popliteal veins are patent without thrombus. Normal Doppler waveforms. Normal compressibility and/or augmentation response. Left superficial veins: Saphenofemoral junction is patent without thrombus. Soft tissues: Unremarkable. IMPRESSION: No sonographic evidence of deep vein thrombosis. Electronically signed by: Mann Gibbs On 02/19/2021 22:13:47 PM
--- NOTE | 2021-02-19 22:16 | REPVR ---
PROCEDURE INFORMATION: Exam: XR Chest Exam date and time: 02/19/2021 8:13 PM Age: 75 years old Clinical indication: Device placement; Ng tube; Additional info: S/P ngt placement TECHNIQUE: Imaging protocol: XR of the chest Views: 1 view. COMPARISON: CR PORTABLE CHEST X-RAY 10/27/2020 9:15 PM FINDINGS: Tubes, catheters and devices: NG tube in place with its tip directed superiorly at the level of the gastric fundus. Lungs: Mild linear stranding, likely due to atelectasis and/or scarring. No focal consolidation. Pleural spaces: Unremarkable. No pleural effusion. No pneumothorax. Heart/Mediastinum: Unremarkable. No cardiomegaly. Bones/joints: No acute osseous abnormality. Mild degenerative changes. Suboptimal visualization of the patient's known vertebral lesions. IMPRESSION: NG tube in adequate position. Electronically signed by: Mnan Gibbs On 02/19/2021 22:16:38 PM
[2021-02-19 22:35] VITALS: BP 166/78
[2021-02-19] MEDS: HYDROMORPHONE HCL 0.5 MG/ 0.5 ML SYRINGE (J1170 PER 1) IV PRN (23:12)
[2021-02-19] MEDS: DOCUSATE SODIUM 100MG CAPSULE PO SCH (23:13)
[2021-02-19] MEDS: HEPARIN SOD (PORCINE) 5000UNITS/ML 1ML VIAL/SYRINGE SC SCH (23:13)
[2021-02-19] MEDS: diltiaZEM **CD** 180 MG CAP PO SCH (23:14)
[2021-02-20] MEDS: NS 0.45% 1,000 ML IV SCH ×3 (02:11→10:55)
[2021-02-20] MEDS: HYDROMORPHONE HCL 0.5 MG/ 0.5 ML SYRINGE (J1170 PER 1) IV PRN ×4 (02:12→22:10)
[2021-02-20] MEDS: LATANOPROST 0.005% OPHTH SOLN 2.5 ML OU SCH ×2 (02:41→21:35)
[2021-02-20 06:00] VITALS: BP 161/79
[2021-02-20] MEDS ORDERED: LEVOTHYROXINE 50MCG TABLET (0.05MG) PO SCH (06:00)
[2021-02-20 07:09] LABS: HEMATOCRIT 39.3 % (36.0-47.0); HEMOGLOBIN 12.4 g/dl (12.0-15.5); MEAN CORPUSCULAR HEMOGLOBIN 30.9 pg (27.0-33.0); MEAN CORPUSCULAR HGB CONC 31.6 g/dl (32.0-36.5); PLATELET COUNT, AUTOMATED 184 10^3/uL (150-450); RED BLOOD COUNT 4.01 10^6/uL (4.00-5.40); WHITE BLOOD COUNT 10.2 10^3/uL (4.0-10.0)
[2021-02-20 07:13] LABS: INR 1.02; PROTHROMBIN TIME 13.6 SECONDS (12.5-14.3)
[2021-02-20 07:25] LABS: CALCIUM LEVEL 8.8 MG/DL (8.8-10.2); CREATININE FOR GFR 0.97 MG/DL (0.55-1.30); GLOMERULAR FILTRATION RATE 59.8 (>39); MAGNESIUM LEVEL 1.7 MG/DL (1.8-2.4); POTASSIUM SERUM 3.1 MEQ/L (3.5-5.1)
[2021-02-20] MEDS: HEPARIN SOD (PORCINE) 5000UNITS/ML 1ML VIAL/SYRINGE SC SCH ×2 (08:15→21:35)
[2021-02-20] MEDS: DOCUSATE SODIUM 100MG CAPSULE PO SCH (08:15)
[2021-02-20] MEDS: diltiaZEM **CD** 180 MG CAP PO SCH (08:16)
[2021-02-20] MEDS: PANTOPRAZOLE 40MG VIAL (C9113 PER 1) IV SCH (08:59)
[2021-02-20] MEDS ORDERED: METOPROLOL SUCC *XL* 25MG TAB (TopROL *XL*) PO SCH (09:00)
[2021-02-20] MEDS ORDERED: VITAMIN E 400 INTERNATIONAL UNITS CAP PO SCH (09:00)
[2021-02-20] MEDS ORDERED: ASPIRIN 81MG ENTERIC TABLET PO SCH (09:00)
[2021-02-20] MEDS ORDERED: FERROUS SULFATE 325MG TAB PO SCH (09:00)
[2021-02-20] MEDS ORDERED: ATORVASTATIN 20 MG TAB PO SCH (09:00)
[2021-02-20] MEDS ORDERED: DULoxetine 30 MG CAP (CYMBALTA) PO SCH (09:00)
[2021-02-20] MEDS ORDERED: OMEPRAZOLE 20 MG CAP PO SCH (09:00)
[2021-02-20] MEDS ORDERED: lisinopriL 40 MG TAB PO SCH (09:00)
[2021-02-20] MEDS ORDERED: MAG SULF 1GM/100ML (MAG RUN) 1 GM in IV 1 EA IV ONE (10:00)
[2021-02-20] MEDS: KETOROLAC 30 MG/ML 1ML VIAL IV PRN ×2 (10:51→17:09)
[2021-02-20] MEDS: KCL 10MEQ/100ML SWI (KRUN) 10 MEQ in IV 1 EA IV SCH ×5 (11:00→14:00)
--- NOTE | 2021-02-20 11:52 | CR ---
CONSULTATION DATE: 02/20/2021 BRIEF HISTORY OF PRESENT ILLNESS: The patient is a 75-year-old female who has had several episodes of small bowel obstructions and several years ago she had a hernia repair in [place] for a midline incisional hernia, essentially was admitted several months ago for small bowel obstruction, resolved the small bowel obstruction with nonoperative means and has been doing well without any complaints of abdominal pain or discomfort since that time. She now presents with 12 to 18 hour history of crampy abdominal pain in the left lower quadrant with no bowel movements, the previous day she had four bowel movements. She has had some nausea and emesis without fevers or chills. No bowel movements. No blood per rectum. She has had a previous colectomy for ischemic colitis reportedly in the past. She has had some leg pain back pain that had been problematic over the years. PAST MEDICAL HISTORY: Significant for history of COPD, history of obstructive sleep apnea, history of GERD, history of hypertension, history of chronic kidney disease, history of remote history of alcohol use, history of ventral hernia repair, history of colon resection, history of appendectomy, hysterectomy, back surgery, left knee surgery. PHYSICAL EXAMINATION: Physical exam reveals a 75-year-old female who although is complaining of significant severe pain when she is distracted she seems comfortable and is able to move around in bed without discomfort. HEENT is unremarkable. Lungs are clear anteriorly. Heart is regular with a few irregular beats. Abdomen is softly distended. On the right hand side of her abdomen she is very jumpy but once I am able to distract her the right side of her abdomen is nontender. The left side is minimally tender with distraction. Without distracting her, she jumps around and definitely complains of severe pain throughout her abdomen. Her CT scan was reviewed and reveals evidence of small bowel obstruction. IMPRESSION: Patient has evidence of recurrent small bowel obstruction and at this point my recommendation is NG-tube for decompression, IV fluids, supportive care and will see how she does with this. She has had a fair bit out of her NG-tube so far even within the first hour of putting in the NG-tube and she states that this does make her feel a little bit better than she was earlier. In any case, we will see how things look in the morning and depending on this may need some follow-up x-rays. I do think that we will have some difficulty in truly assessing her progress if we use her abdominal pain as the sole guidance for our treatment. Will use it in addition to other findings.
--- NOTE | 2021-02-20 12:00 | IPN ---
PROGRESS NOTE DATE: 02/20/2021 SUBJECTIVE: The patient has been complaining of pain overnight but overall seems relatively comfortable in bed. She has been voiding. She has not had any bowel movements, has had some NG tube output. Overall it does not seem as though it is cycling as well but she definitely feels less distended than she did last night but still having pain. With distraction it seems as though she is moving around in bed relatively well and with exam she is less distended and less uncomfortable to palpation. She has a white count that has dropped down to 10.2 this morning and on her physical exam as stated previously, she has decreased abdominal distention. Her right side of her abdomen is much more benign this morning than it was last night. She still has some discomfort on the left hand side with palpation but it is definitely less than it was last night and less distention. ASSESSMENT AND PLAN: The patient has improving/resolving small bowel obstruction clinically but she is still distended and she is not having bowel movements so I do not think she is completely resolved at this time obviously, but more importantly, I am not sure her NG tube is positioned as well as I would like so I will get some followup films to see where we are at and depending on this, we may move her NG around a little bit and see if we can get better drainage. Otherwise we will have her continue ambulation as much as possible and will determine our next course of action based on that.
--- NOTE | 2021-02-20 13:50 | REP ---
INDICATION: SBO/NG TUBE POSITION. COMPARISON: Abdomen/pelvis CT dated 02/19/2021. TECHNIQUE: There are four views including upright PA chest, upright abdomen single view, and supine abdomen two views. FINDINGS: PA chest: Lung siddiqui are clear. Cardiac size is normal. The arcenio, mediastinum, and skeletal structures are unremarkable. There is no free subdiaphragmatic air. There is an NG tube terminating satisfactorily underneath the left hemidiaphragm. Abdomen supine and upright views: There is scattered gas and a few mildly distended small bowel loops. There is intraluminal contrast in the ascending colon. The colon is not distended. There is a nasogastric tube be knees the left hemidiaphragm in satisfactory position. There the bladder is opacified likely from the contrast used for the CT scan yesterday. IMPRESSION: Nonspecific bowel gas pattern. NG tube tip is in satisfactory position beneath the left hemidiaphragm. No free subdiaphragmatic air. <Electronically signed by Bebeto Darling > 02/20/21 [id number]
[2021-02-20 14:00] VITALS: BP 129/69
[2021-02-20 16:40] VITALS: BP 162/78
[2021-02-20 17:34] LABS: BLOOD UREA NITROGEN 26 MG/DL (7-18); CALCIUM LEVEL 8.7 MG/DL (8.8-10.2); CARBON DIOXIDE LEVEL 31 MEQ/L (21-32); CHLORIDE LEVEL 105 MEQ/L (98-107); CREATININE FOR GFR 0.86 MG/DL (0.55-1.30); GLOMERULAR FILTRATION RATE > 60.0 (>39); GLUCOSE, FASTING 81 MG/DL (70-100); POTASSIUM SERUM 3.6 MEQ/L (3.5-5.1); SODIUM LEVEL 139 MEQ/L (136-145)
--- NOTE | 2021-02-20 17:55 | ECGEPIP ---
[facility] - ED Test Date: 2021-02-19 Pat Name: CIPRIANO WATERS Department: Room: - Gender: Female Wellness Specialist: ED : 1945 Requested By: ANNETTA Restrepo Order Number: [id number] Reading MD: Marizol Vázquez Measurements Intervals [place] Rate: 61 P: 42 ND: 172 QRS: 13 QRSD: 62 T: 43 QT: 428 QTc: 430 Interpretive Statements Normal sinus rhythm Nonspecific ST abnormality similar 10/27/20 Electronically Signed on 02-20-2021 17:55:19 EDT by Marizol Vázquez
--- NOTE | 2021-02-20 21:49 | IPNPDOC ---
Date Seen The patient was seen on 02/20/21. Progress Note SUBJECTIVE: F/u surgical recommendations after imaging. Patient admits to continued abd pain but denies n/v, shortness of breath. OBJECTIVE: PHYSICAL EXAMINATION: VITAL SIGNS: See Below GENERAL APPEARANCE: Appears uncomfortable in bed, AAOx 3 HEENT: No mass or lesion. EOMI. No scleral icterus. Nares patent. NG tube in place, secured CARDIOVASCULAR: Regular rate, rhythm. No murmurs, rubs gallops LUNGS: Clear to auscultation. No wheezing, rales, rhonchi ABDOMEN: tender diffusely, BS present in four quadrants. soft. No organomegaly MUSCULOSKELETAL: No joint deformity noted EXTREMITIES: No peripheral edema. No clubbing, cyanosis NEUROLOGICAL: CN 2-12 intact. No focal deficits PSYCHIATRIC: Mood and affect appear appropriate LABORATORY DATA: See below. IMAGING: AbdXR 02/20/21: Nonspecific bowel gas pattern. NG tube tip is in satisfactory position beneath the left hemidiaphragm. No free subdiaphragmatic air. B/l hip XR: No acute radiographic findings. CT Abd/pelvis: 1. Recurrent proximal to mid small bowel obstruction with dilated loops of small bowel in the left abdomen, small amount of interloop fluid as well as interloop fat stranding, and some segments with fecal material suggesting stasis. Transition point appears to be in the left lower abdomen. This could be from adhesions, although closed loop obstruction is not excluded. 2. Narrowed segment of mid to distal transverse colon near the transition point in the small bowel, but no significant upstream obstruction. 3. Prior ventral abdominal wall hernia repair, with residual broad mouth rectus diastasis abdominal wall hernia. 4. Gastric distension with collapsed duodenum. This may represent gastroparesis or partial gastric outlet obstruction. 5. Simple cysts in the kidneys. Some of the lesions are too small to characterize, but are unchanged and statistically most likely cysts. No further imaging follow-up necessary ADDENDUM REPORT 1 Additional findings for the bones and joints section: Sclerotic lesion at the T12 vertebral body with ill-defined margins posterior inferiorly and mixed lytic and sclerotic lesion abutting the endplate at the inferior aspect of L2 and L3 unchanged persistent large predominantly lucent lesion occupying the L3 vertebral body with vertical bands of sclerosis typical of a vertebral hemangioma, unchanged. This again appears slightly expansile along the posterior margin. Persistent mild anterior compression deformity of T11, unchanged. All of these findings are stable MICROBIOLOGY: Please see below. ASSESSMENT: This is a 75 year old female with PMH of several abdominal surgeries and previous SBO admitted for recurrent SBO. PLAN: SBO -WBC improving -Cont abd pain, denies flatulance or BM -Abd XR above -NPO, holding all PO meds, c/w NG tube with IS, IVFs, antinausea meds, pain control -Surgery following L Hip pain, chronic -Imaging neg for acute issue -Pain control COPD -Stable, will continue patient's at home oxygen of 2L at night [place] - oxygen at night, as stated HTN -Holding PO lisinopril, metoprolol, hctz Dyslipidemia -Holding atorvastatin, asa Hypothyroidism -Holding levothyroxine Depression -Holding cymbalta, trazodone Hx migraines -Holding sumatriptan q2h prn GI px -PPI DVT prophylaxis - heparin DISPOSITION: Surgery following closely. Will need PT/OT when off intermittent suction. Plan is d/c home when medically improved. VS, I&O, 24H, [facility] Vital Signs/I&O Vital Signs Date Time Temp Pulse Resp B/P (MAP) Pulse Ox O2 Delivery O2 Flow Rate FiO2 02/20/21 19:15 20 02/20/21 16:40 2.0 02/20/21 16:40 98.4 64 162/78 (106) 98 Nasal Cannula I&O- Last 24 Hours up to 6 AM 02/20/21 06:00 Intake Total 0 ml Output Total 0 ml Balance 0 ml Laboratory Data 24H LABS Laboratory Tests 2 02/20/21 06:47: Nucleated Red Blood Cells % (auto) 0.0, Prothrombin Time 13.6, Prothromb Time International Ratio 1.02, Anion Gap 6L, Glomerular Filtration Rate 59.8, Calcium Level 8.8, Magnesium Level 1.7L 02/20/21 16:52: Anion Gap 3L, Glomerular Filtration Rate > 60.0, Calcium Level 8.7L CBC/BMP Laboratory Tests 02/20/21 06:47 02/20/21 16:52 Current Medications Current Medications Medications (Trade) Dose Ordered Sig/Roberto Route PRN Reason Start Time Stop Time Status Last Admin Dose Admin Acetaminophen (Tylenol Tab) 650 mg Q4H PRN PO PAIN OR FEVER 02/19/21 19:30 4/6/21 08:49 DC Acetaminophen/ Hydrocodone Bitart ([place], Anexsia 5/325) 1 tab Q6HP PRN PO severe pain 8-10 02/19/21 19:35 02/20/21 08:49 DC Al Hydrox/Mg Hydrox/Simethicone (Mylanta) 30 ml DAILY PRN PO DYSPEPSIA 02/19/21 19:30 02/20/21 08:49 DC Aspirin (Ecotrin) 81 mg DAILY PO 02/20/21 09:00 02/20/21 08:49 DC 02/20/21 08:15 Atorvastatin Calcium (Lipitor) 80 mg DAILY PO 02/20/21 09:00 02/20/21 08:49 DC 02/20/21 08:14 Diatrizoate Meglum/ Diatrizoate Sod (Gastrografin) 10 ml Q30M PO 02/19/21 16:00 02/19/21 16:31 DC 02/19/21 17:13 Diltiazem HCl (Cardizem Cd) 180 mg BID PO 02/19/21 21:00 02/20/21 08:49 DC 02/20/21 08:16 Docusate Sodium (Colace) 100 mg BID PO 02/19/21 21:00 02/20/21 08:49 DC 02/20/21 08:15 Duloxetine HCl (Cymbalta) 60 mg DAILY PO 02/20/21 09:00 02/20/21 08:49 DC 02/20/21 08:15 Ferrous Sulfate (Ferrous Sulfate) 325 mg DAILY PO 02/20/21 09:00 02/20/21 08:49 DC 02/20/21 08:15 Heparin Sodium (Porcine) (Heparin) 5,000 units Q12H SC 02/19/21 21:00 02/20/21 21:35 Home Med (Med Rec Complete!) ASDIRECTED XX 02/19/21 19:10 02/19/21 19:09 DC Hydrochlorothiazide (Hydrodiuril) 12.5 mg MoWeFr@0900 PO 02/21/21 09:00 02/20/21 08:52 DC Hydromorphone HCl (Dilaudid) 1 mg Q3HP PRN IV SEVERE PAIN (PS 8-10) 02/19/21 22:05 02/20/21 19:05 Hydromorphone HCl (Dilaudid) 1.6 mg Q3HP PRN IV MODERATE/SEVERE PAIN (PS 5-10) 02/19/21 22:05 02/20/21 08:52 DC Ketorolac Tromethamine (ToRADol) 15 mg Q6HP PRN IV MODERATE PAIN (PS 5-7) 02/20/21 09:35 02/25/21 09:34 02/20/21 17:09 Ketorolac Tromethamine (ToRADol) 30 mg Q8HP PRN IV moderate pain 5-7 02/19/21 19:35 02/20/21 08:52 DC 02/19/21 20:40 Latanoprost (Xalatan 0.005% Op Soln) 1 drop QHS OU 02/19/21 21:00 02/20/21 21:35 Levothyroxine Sodium (Synthroid) 50 mcg QAM@0600 PO 02/20/21 06:00 02/20/21 08:49 DC 02/20/21 06:45 Lisinopril (Prinivil) 20 mg QHS PO 02/19/21 21:00 02/20/21 08:49 DC 02/19/21 21:00 Lisinopril (Prinivil) 40 mg QAM PO 02/20/21 09:00 02/20/21 08:49 DC 02/20/21 08:15 Magnesium Hydroxide (Milk Of Magnesia) 30 ml DAILY PRN PO CONSTIPATION 02/19/21 19:30 02/20/21 08:49 DC Metoprolol Succinate (TopROL XL) 75 mg DAILY PO 02/20/21 09:00 02/20/21 08:49 DC 02/20/21 08:16 Omeprazole (PriLOSEC) 40 mg DAILY PO 02/20/21 09:00 02/20/21 08:49 DC 02/20/21 08:14 Ondansetron HCl (ZOFRAN INJection) 8 mg Q4HP PRN IV NAUSEA OR VOMITING 02/19/21 19:20 02/19/21 20:40 Pantoprazole Sodium (Protonix) 40 mg Q24H IV 02/20/21 09:00 02/20/21 08:59 Potassium Chloride 10 meq/ IV Miscellaneous Supplies 100 ml @ 100 mls/hr Q1H IV 02/20/21 10:00 02/20/21 14:59 DC 02/20/21 14:00 Sodium Chloride 1,000 ml @ 100 mls/hr Q10H IV 02/20/21 00:05 02/20/21 10:55 Sodium Chloride 1,000 ml @ 150 mls/hr Q6H40M IV 02/19/21 18:51 02/19/21 22:49 DC 02/19/21 20:40 Sumatriptan Succinate (Imitrex) 100 mg Q2H PRN PO HEADACHE 02/19/21 19:30 02/20/21 08:49 DC Trazodone HCl (Desyrel) 100 mg QHS PO 02/19/21 21:00 02/20/21 08:49 DC 02/19/21 23:13 Vitamin E (Vitamin E) 400 units DAILY PO 02/20/21 09:00 02/20/21 08:49 DC 02/20/21 08:14 Allergies Coded Allergies: Penicillins (Verified Allergy, Intermediate, HIVES, 03/19/19) morphine (Verified Allergy, Intermediate, ITCHING, 03/19/19) tetracycline (Verified Allergy, Intermediate, HIVES, 03/19/19) Sulfa (Sulfonamide Antibiotics) (Verified Allergy, Unknown, HIVES, 03/25/19) erythromycin base (Verified Allergy, Unknown, HIVES, 03/25/19) Monae Laws MD Feb 20, 2021 21:49
[2021-02-21] VITALS: BP 129/79
[2021-02-21] MEDS ORDERED: KETOROLAC 30 MG/ML 1ML VIAL As Ordered ONE (01:46)
[2021-02-21 08:00] VITALS: BP 167/85
[2021-02-21 08:25] LABS: HEMATOCRIT 36.2 % (36.0-47.0); HEMOGLOBIN 11.5 g/dl (12.0-15.5); MEAN CORPUSCULAR HEMOGLOBIN 30.6 pg (27.0-33.0); MEAN CORPUSCULAR HGB CONC 31.8 g/dl (32.0-36.5); MEAN CORPUSCULAR VOLUME 96.3 fl (80.0-96.0); PLATELET COUNT, AUTOMATED 149 10^3/uL (150-450); RED BLOOD COUNT 3.76 10^6/uL (4.00-5.40); WHITE BLOOD COUNT 5.9 10^3/uL (4.0-10.0)
[2021-02-21 08:34] LABS: INR 0.96
[2021-02-21 08:39] LABS: BLOOD UREA NITROGEN 23 MG/DL (7-18); CALCIUM LEVEL 8.9 MG/DL (8.8-10.2); CARBON DIOXIDE LEVEL 29 MEQ/L (21-32); CHLORIDE LEVEL 105 MEQ/L (98-107); CREATININE FOR GFR 0.79 MG/DL (0.55-1.30); GLOMERULAR FILTRATION RATE > 60.0 (>39); GLUCOSE, FASTING 61 MG/DL (70-100); POTASSIUM SERUM 3.3 MEQ/L (3.5-5.1); SODIUM LEVEL 140 MEQ/L (136-145)
[2021-02-21] MEDS ORDERED: hydroCHLOROthiazide 12.5 MG CAPSULE PO SCH (09:00)
[2021-02-21] MEDS: HEPARIN SOD (PORCINE) 5000UNITS/ML 1ML VIAL/SYRINGE SC SCH ×2 (09:15→20:37)
[2021-02-21] MEDS: PANTOPRAZOLE 40MG VIAL (C9113 PER 1) IV SCH (09:16)
[2021-02-21] MEDS: KETOROLAC 30 MG/ML 1ML VIAL IV PRN ×2 (09:33→15:58)
[2021-02-21] MEDS: ONDANSETRON 4MG/2ML VIAL IV PRN (10:26)
[2021-02-21] MEDS: HYDROMORPHONE HCL 0.5 MG/ 0.5 ML SYRINGE (J1170 PER 1) IV PRN ×5 (10:31→23:35)
[2021-02-21] MEDS: NS 0.45% 1,000 ML IV SCH ×2 (10:40→23:35)
[2021-02-21] MEDS: KCL 10MEQ/100ML SWI (KRUN) 10 MEQ in IV 1 EA IV SCH ×4 (12:37→15:59)
--- NOTE | 2021-02-21 13:22 | IPNPDOC ---
Date Seen The patient was seen on 02/21/21. Progress Note SUBJECTIVE: Decreased output from NG tube overnight, persistent abdominal pain requiring Dilaudid. Surgery clamped NG tube and will keep overnight. Pt is passing increased amount of gas but no bowel movement. She denies nausea/vomiting, shortness of breath. OBJECTIVE: PHYSICAL EXAMINATION: VITAL SIGNS: See Below GENERAL APPEARANCE: Appears uncomfortable in bed, AAOx 3 HEENT: No mass or lesion. EOMI. No scleral icterus. Nares patent. NG tube in place, secured CARDIOVASCULAR: Regular rate, rhythm. No murmurs, rubs gallops LUNGS: Clear to auscultation. No wheezing, rales, rhonchi ABDOMEN: tender diffusely, BS present in four quadrants. soft. No organomegaly MUSCULOSKELETAL: No joint deformity noted EXTREMITIES: No peripheral edema. No clubbing, cyanosis NEUROLOGICAL: CN 2-12 intact. No focal deficits PSYCHIATRIC: Mood and affect appear appropriate LABORATORY DATA: See below. IMAGING: AbdXR 02/20/21: Nonspecific bowel gas pattern. NG tube tip is in satisfactory position beneath the left hemidiaphragm. No free subdiaphragmatic air. B/l hip XR: No acute radiographic findings. CT Abd/pelvis: 1. Recurrent proximal to mid small bowel obstruction with dilated loops of small bowel in the left abdomen, small amount of interloop fluid as well as interloop fat stranding, and some segments with fecal material suggesting stasis. Transition point appears to be in the left lower abdomen. This could be from adhesions, although closed loop obstruction is not excluded. 2. Narrowed segment of mid to distal transverse colon near the transition point in the small bowel, but no significant upstream obstruction. 3. Prior ventral abdominal wall hernia repair, with residual broad mouth rectus diastasis abdominal wall hernia. 4. Gastric distension with collapsed duodenum. This may represent gastroparesis or partial gastric outlet obstruction. 5. Simple cysts in the kidneys. Some of the lesions are too small to characterize, but are unchanged and statistically most likely cysts. No further imaging follow-up necessary ADDENDUM REPORT 1 Additional findings for the bones and joints section: Sclerotic lesion at the T12 vertebral body with ill-defined margins posterior inferiorly and mixed lytic and sclerotic lesion abutting the endplate at the inferior aspect of L2 and L3 unchanged persistent large predominantly lucent lesion occupying the L3 vertebral body with vertical bands of sclerosis typical of a vertebral hemangioma, unchanged. This again appears slightly expansile along the posterior margin. Persistent mild anterior compression deformity of T11, unchanged. All of these findings are stable MICROBIOLOGY: Please see below. ASSESSMENT: This is a 75 year old female with PMH of several abdominal surgeries and previous SBO admitted for recurrent SBO. PLAN: SBO -WBC now normal with persist abd pain, + flatus, no BM -Abd XR above -Clamping NG tube today, will keep like this overnight. -C/w NPO except ice chips, IVFs, antinausea meds, pain control -Surgery following, f/u recommendations L Hip pain, chronic -Imaging neg for acute issue -Pain control COPD -Stable, will continue patient's at home oxygen of 2L at night [place] - oxygen at night, as stated HTN -Holding PO lisinopril, metoprolol, hctz Dyslipidemia -Holding atorvastatin, asa Hypothyroidism -Holding levothyroxine Depression -Holding cymbalta, trazodone Hx migraines -Holding sumatriptan q2h prn GI px -PPI DVT prophylaxis - heparin DISPOSITION: Surgery following. Plan is d/c home when medically improved. VS, I&O, 24H, [facility] Vital Signs/I&O Vital Signs Date Time Temp Pulse Resp B/P (MAP) Pulse Ox O2 Delivery O2 Flow Rate FiO2 02/21/21 11:00 20 02/21/21 08:00 2.0 02/21/21 08:00 98.1 62 167/85 (112) 100 Nasal Cannula I&O- Last 24 Hours up to 6 AM 02/21/21 06:00 Intake Total 2230 ml Output Total 1490 ml Balance 740 ml Laboratory Data 24H LABS Laboratory Tests 2 02/20/21 16:52: Anion Gap 3L, Glomerular Filtration Rate > 60.0, Calcium Level 8.7L 02/21/21 07:56: Anion Gap 6L, Glomerular Filtration Rate > 60.0, Calcium Level 8.9, Nucleated Red Blood Cells % (auto) 0.0, Prothrombin Time 13.0, Prothromb Time International Ratio 0.96, Magnesium Level 2.0 CBC/BMP Laboratory Tests 02/20/21 16:52 02/21/21 07:56 Current Medications Current Medications Medications (Trade) Dose Ordered Sig/Roberto Route PRN Reason Start Time Stop Time Status Last Admin Dose Admin Acetaminophen (Tylenol Tab) 650 mg Q4H PRN PO PAIN OR FEVER 02/19/21 19:30 02/20/21 08:49 DC Acetaminophen/ Hydrocodone Bitart ([place], Anexsia 5/325) 1 tab Q6HP PRN PO severe pain 8-10 02/19/21 19:35 02/20/21 08:49 DC Al Hydrox/Mg Hydrox/Simethicone (Mylanta) 30 ml DAILY PRN PO DYSPEPSIA 02/19/21 19:30 02/20/21 08:49 DC Aspirin (Ecotrin) 81 mg DAILY PO 02/20/21 09:00 02/20/21 08:49 DC 02/20/21 08:15 Atorvastatin Calcium (Lipitor) 80 mg DAILY PO 02/20/21 09:00 02/20/21 08:49 DC 02/20/21 08:14 Diatrizoate Meglum/ Diatrizoate Sod (Gastrografin) 10 ml Q30M PO 02/19/21 16:00 02/19/21 16:31 DC 02/19/21 17:13 Diltiazem HCl (Cardizem Cd) 180 mg BID PO 02/19/21 21:00 02/20/21 08:49 DC 02/20/21 08:16 Docusate Sodium (Colace) 100 mg BID PO 02/19/21 21:00 02/20/21 08:49 DC 02/20/21 08:15 Duloxetine HCl (Cymbalta) 60 mg DAILY PO 02/20/21 09:00 02/20/21 08:49 DC 02/20/21 08:15 Ferrous Sulfate (Ferrous Sulfate) 325 mg DAILY PO 02/20/21 09:00 02/20/21 08:49 DC 02/20/21 08:15 Heparin Sodium (Porcine) (Heparin) 5,000 units Q12H SC 02/19/21 21:00 02/21/21 09:15 Home Med (Med Rec Complete!) ASDIRECTED XX 02/19/21 19:10 02/19/21 19:09 DC Hydrochlorothiazide (Hydrodiuril) 12.5 mg MoWeFr@0900 PO 02/21/21 09:00 02/20/21 08:52 DC Hydromorphone HCl (Dilaudid) 1 mg Q3HP PRN IV SEVERE PAIN (PS 8-10) 02/19/21 22:05 02/21/21 10:31 Hydromorphone HCl (Dilaudid) 1.6 mg Q3HP PRN IV MODERATE/SEVERE PAIN (PS 5-10) 02/19/21 22:05 02/20/21 08:52 DC Ketorolac Tromethamine (ToRADol) 15 mg Q6HP PRN IV MODERATE PAIN (PS 5-7) 02/20/21 09:35 02/25/21 09:34 02/21/21 09:33 Ketorolac Tromethamine (ToRADol) 30 mg Q8HP PRN IV moderate pain 5-7 02/19/21 19:35 02/20/21 08:52 DC 02/19/21 20:40 Latanoprost (Xalatan 0.005% Op Soln) 1 drop QHS OU 02/19/21 21:00 02/20/21 21:35 Levothyroxine Sodium (Synthroid) 50 mcg QAM@0600 PO 02/20/21 06:00 02/20/21 08:49 DC 02/20/21 06:45 Lisinopril (Prinivil) 20 mg QHS PO 02/19/21 21:00 02/20/21 08:49 DC 02/19/21 21:00 Lisinopril (Prinivil) 40 mg QAM PO 02/20/21 09:00 02/20/21 08:49 DC 02/20/21 08:15 Magnesium Hydroxide (Milk Of Magnesia) 30 ml DAILY PRN PO CONSTIPATION 02/19/21 19:30 02/20/21 08:49 DC Metoprolol Succinate (TopROL XL) 75 mg DAILY PO 02/20/21 09:00 02/20/21 08:49 DC 02/20/21 08:16 Omeprazole (PriLOSEC) 40 mg DAILY PO 02/20/21 09:00 02/20/21 08:49 DC 02/20/21 08:14 Ondansetron HCl (ZOFRAN INJection) 8 mg Q4HP PRN IV NAUSEA OR VOMITING 02/19/21 19:20 02/21/21 10:26 Pantoprazole Sodium (Protonix) 40 mg Q24H IV 02/20/21 09:00 02/21/21 09:16 Potassium Chloride 10 meq/ IV Miscellaneous Supplies 100 ml @ 100 mls/hr Q1H IV 02/20/21 10:00 02/20/21 14:59 DC 02/20/21 14:00 Potassium Chloride 10 meq/ IV Miscellaneous Supplies 100 ml @ 100 mls/hr Q1H IV 02/21/21 11:00 02/21/21 14:59 02/21/21 12:37 Sodium Chloride 1,000 ml @ 100 mls/hr Q10H IV 02/20/21 00:05 02/21/21 10:40 Sodium Chloride 1,000 ml @ 150 mls/hr Q6H40M IV 02/19/21 18:51 02/19/21 22:49 DC 02/19/21 20:40 Sumatriptan Succinate (Imitrex) 100 mg Q2H PRN PO HEADACHE 02/19/21 19:30 02/20/21 08:49 DC Trazodone HCl (Desyrel) 100 mg QHS PO 02/19/21 21:00 02/20/21 08:49 DC 02/19/21 23:13 Vitamin E (Vitamin E) 400 units DAILY PO 02/20/21 09:00 02/20/21 08:49 DC 02/20/21 08:14 Allergies Coded Allergies: Penicillins (Verified Allergy, Intermediate, HIVES, 03/19/19) morphine (Verified Allergy, Intermediate, ITCHING, 03/19/19) tetracycline (Verified Allergy, Intermediate, HIVES, 03/19/19) Sulfa (Sulfonamide Antibiotics) (Verified Allergy, Unknown, HIVES, 03/25/19) erythromycin base (Verified Allergy, Unknown, HIVES, 03/25/19) Monae Laws MD Feb 21, 2021 13:22
[2021-02-21 15:30] VITALS: BP 148/67
[2021-02-21] MEDS: LATANOPROST 0.005% OPHTH SOLN 2.5 ML OU SCH (20:37)
[2021-02-22] VITALS (7 sets, daily range): BP systolic 144–216; BP diastolic 77–100
[2021-02-22] MEDS: KETOROLAC 30 MG/ML 1ML VIAL IV PRN ×3 (03:21→16:09)
[2021-02-22] MEDS: HYDROMORPHONE HCL 0.5 MG/ 0.5 ML SYRINGE (J1170 PER 1) IV PRN (06:09)
[2021-02-22 07:58] LABS: HEMATOCRIT 34.5 % (36.0-47.0); HEMOGLOBIN 11.1 g/dl (12.0-15.5); MEAN CORPUSCULAR HEMOGLOBIN 30.7 pg (27.0-33.0); MEAN CORPUSCULAR HGB CONC 32.2 g/dl (32.0-36.5); MEAN CORPUSCULAR VOLUME 95.6 fl (80.0-96.0); PLATELET COUNT, AUTOMATED 137 10^3/uL (150-450); RED BLOOD COUNT 3.61 10^6/uL (4.00-5.40); WHITE BLOOD COUNT 4.6 10^3/uL (4.0-10.0)
[2021-02-22 08:06] LABS: INR 1.01; PROTHROMBIN TIME 13.5 SECONDS (12.5-14.3)
[2021-02-22 08:17] LABS: BLOOD UREA NITROGEN 22 MG/DL (7-18); CALCIUM LEVEL 8.7 MG/DL (8.8-10.2); CARBON DIOXIDE LEVEL 27 MEQ/L (21-32); CHLORIDE LEVEL 106 MEQ/L (98-107); CREATININE FOR GFR 0.82 MG/DL (0.55-1.30); GLOMERULAR FILTRATION RATE > 60.0 (>39); GLUCOSE, FASTING 46 MG/DL (70-100); MAGNESIUM LEVEL 1.9 MG/DL (1.8-2.4); POTASSIUM SERUM 3.7 MEQ/L (3.5-5.1); SODIUM LEVEL 142 MEQ/L (136-145)
[2021-02-22] MEDS ORDERED: DEXTROSE 50% 50 ML SYRINGE IV PRN (08:20)
[2021-02-22] MEDS ORDERED: D5W/0.9% SODIUM CHLORIDE 1,000 ML IV SCH (08:20)
[2021-02-22] MEDS ORDERED: GLUCAGON INJ 1MG VIAL SC PRN (08:20)
[2021-02-22] MEDS ORDERED: GLUCOSE 4GM CHEW TABLET PO PRN (08:20)
[2021-02-22] MEDS: PANTOPRAZOLE 40MG VIAL (C9113 PER 1) IV SCH (08:37)
[2021-02-22] MEDS: HEPARIN SOD (PORCINE) 5000UNITS/ML 1ML VIAL/SYRINGE SC SCH ×2 (08:38→20:49)
--- NOTE | 2021-02-22 11:15 | REP ---
INDICATION: resolved sbo. COMPARISON: 02/20/2021. TECHNIQUE: Supine and erect views the abdomen, PA view chest. FINDINGS: There is no evidence of free intraperitoneal air. There is no radiographic evidence of persistent small bowel obstruction, no dilated bowel loops are seen. Oral contrast material from prior CT scan 02/19/2021 is located in the right colon. A nasogastric tube is again seen with the distal end coiled in the stomach, unchanged in position. No infiltrate is seen in either lung. The heart is normal in size. The mediastinal silhouette is unchanged. IMPRESSION: No current radiographic evidence of small bowel obstruction. <Electronically signed by Bebeto Valero > 02/22/21 1111
[2021-02-22] MEDS ORDERED: SUMAtriptan SUCCINATE 25 MG TAB PO PRN (12:40)
--- NOTE | 2021-02-22 12:51 | IPNPDOC ---
Date Seen The patient was seen on 02/22/21. Progress Note SUBJECTIVE: NG tube pulled out today, starting on CLD and started PO meds. improved abd pain, nontender on exam. CT of L hip ordered for ongoing left hip/leg pain. OBJECTIVE: PHYSICAL EXAMINATION: VITAL SIGNS: See Below GENERAL APPEARANCE: Appears uncomfortable in bed, AAOx 3 HEENT: No mass or lesion. EOMI. No scleral icterus. Nares patent. NG tube in place, secured CARDIOVASCULAR: Regular rate, rhythm. No murmurs, rubs gallops LUNGS: Clear to auscultation. No wheezing, rales, rhonchi ABDOMEN: nontender, BS present in four quadrants. soft. No organomegaly MUSCULOSKELETAL: No joint deformity noted EXTREMITIES: Pain with lateral ROM of left leg, no peripheral edema. No clubbing, cyanosis. Pulses present in lower ext NEUROLOGICAL: CN 2-12 intact. No focal deficits PSYCHIATRIC: Mood and affect appear appropriate LABORATORY DATA: See below. IMAGING: ABd XR 02/22/21: No current radiographic evidence of small bowel obstruction. AbdXR 02/20/21: Nonspecific bowel gas pattern. NG tube tip is in satisfactory position beneath the left hemidiaphragm. No free subdiaphragmatic air. B/l hip XR: No acute radiographic findings. CT Abd/pelvis: 1. Recurrent proximal to mid small bowel obstruction with dilated loops of small bowel in the left abdomen, small amount of interloop fluid as well as interloop fat stranding, and some segments with fecal material suggesting stasis. Transition point appears to be in the left lower abdomen. This could be from adhesions, although closed loop obstruction is not excluded. 2. Narrowed segment of mid to distal transverse colon near the transition point in the small bowel, but no significant upstream obstruction. 3. Prior ventral abdominal wall hernia repair, with residual broad mouth rectus diastasis abdominal wall hernia. 4. Gastric distension with collapsed duodenum. This may represent gastroparesis or partial gastric outlet obstruction. 5. Simple cysts in the kidneys. Some of the lesions are too small to characterize, but are unchanged and statistically most likely cysts. No further imaging follow-up necessary ADDENDUM REPORT 1 Additional findings for the bones and joints section: Sclerotic lesion at the T12 vertebral body with ill-defined margins posterior inferiorly and mixed lytic and sclerotic lesion abutting the endplate at the inferior aspect of L2 and L3 unchanged persistent large predominantly lucent lesion occupying the L3 vertebral body with vertical bands of sclerosis typical of a vertebral hemangioma, unchanged. This again appears slightly expansile along the posterior margin. Persistent mild anterior compression deformity of T11, unchanged. All of these findings are stable MICROBIOLOGY: Please see below. ASSESSMENT: This is a 75 year old female with PMH of several abdominal surgeries and previous SBO admitted for recurrent SBO. PLAN: SBO- improved -KUB above -NG tube taken out, advancing diet and starting oral meds, nontender abdomen. -zofran PRN -Surgery following, f/u recommendations L Hip pain, chronic. Hx of fibromyalgia, no recent trauma -Pain described as severe on exam and with rest as well -Imaging neg for acute issue thus far -F/u CT left hip -D/c dilaudid, toradol PRN COPD -Stable, will continue patient's at home oxygen of 2L at night [place] - oxygen at night, as stated HTN -Holding PO lisinopril, metoprolol, hctz Dyslipidemia -Holding atorvastatin, asa Hypothyroidism -Holding levothyroxine Depression -Holding cymbalta, trazodone Hx migraines -Holding sumatriptan q2h prn GI px -PPI DVT prophylaxis - heparin DISPOSITION: Surgery following. Encourage ambulation. Plan is d/c home when medically improved. VS, I&O, 24H, Fishbone Vital Signs/I&O Vital Signs Date Time Temp Pulse Resp B/P (MAP) Pulse Ox O2 Delivery O2 Flow Rate FiO2 02/22/21 11:20 95 Room Air 02/22/21 08:30 2.0 02/22/21 08:00 97.2 88 18 181/81 (114) I&O- Last 24 Hours up to 6 AM 02/22/21 06:00 Intake Total 2460 ml Output Total 2450 ml Balance 10 ml Laboratory Data 24H LABS Laboratory Tests 2 02/22/21 07:19: Nucleated Red Blood Cells % (auto) 0.0, Prothrombin Time 13.5, Prothromb Time International Ratio 1.01, Anion Gap 9, Glomerular Filtration Rate > 60.0, Calcium Level 8.7L, Magnesium Level 1.9 CBC/BMP Laboratory Tests 02/22/21 07:19 Current Medications Current Medications Medications (Trade) Dose Ordered Sig/Roberto Route PRN Reason Start Time Stop Time Status Last Admin Dose Admin Acetaminophen (Tylenol Tab) 650 mg Q4H PRN PO PAIN OR FEVER 02/19/21 19:30 02/20/21 08:49 DC Acetaminophen/ Hydrocodone Bitart ([place], Anexsia 5/325) 1 tab Q6HP PRN PO severe pain 8-10 02/19/21 19:35 02/20/21 08:49 DC Al Hydrox/Mg Hydrox/Simethicone (Mylanta) 30 ml DAILY PRN PO DYSPEPSIA 02/19/21 19:30 02/20/21 08:49 DC Aspirin (Ecotrin) 81 mg DAILY PO 02/20/21 09:00 02/20/21 08:49 DC 02/20/21 08:15 Atorvastatin Calcium (Lipitor) 80 mg DAILY PO 02/20/21 09:00 02/20/21 08:49 DC 02/20/21 08:14 Dextrose (Dextrose 50%) 25 ml ASDIRECTED PRN IV SEE LABEL COMMENTS 02/22/21 08:20 Dextrose/Sodium Chloride 1,000 ml @ 100 mls/hr Q10H IV 02/22/21 08:20 02/22/21 08:37 Diatrizoate Meglum/ Diatrizoate Sod (Gastrografin) 10 ml Q30M PO 02/19/21 16:00 02/19/21 16:31 DC 02/19/21 17:13 Diltiazem HCl (Cardizem Cd) 180 mg BID PO 02/19/21 21:00 02/20/21 08:49 DC 02/20/21 08:16 Docusate Sodium (Colace) 100 mg BID PO 02/19/21 21:00 02/20/21 08:49 DC 02/20/21 08:15 Docusate Sodium (Colace) 200 mg BID PO 02/22/21 09:00 Duloxetine HCl (Cymbalta) 60 mg DAILY PO 02/20/21 09:00 02/20/21 08:49 DC 02/20/21 08:15 Ferrous Sulfate (Ferrous Sulfate) 325 mg DAILY PO 02/20/21 09:00 02/20/21 08:49 DC 02/20/21 08:15 Glucagon (Glucagon) 1 mg ASDIRECTED PRN SC SEE LABEL COMMENTS 02/22/21 08:20 Glucose (Glucose) 16 GM ASDIRECTED PRN PO SEE LABEL COMMENTS 02/22/21 08:20 Heparin Sodium (Porcine) (Heparin) 5,000 units Q12H SC 02/19/21 21:00 02/22/21 08:38 Home Med (Med Rec Complete!) ASDIRECTED XX 02/19/21 19:10 02/19/21 19:09 DC Hydrochlorothiazide (Hydrodiuril) 12.5 mg MoWeFr@0900 PO 02/21/21 09:00 02/20/21 08:52 DC Hydromorphone HCl (Dilaudid) 1 mg Q3HP PRN IV SEVERE PAIN (PS 8-10) 02/19/21 22:05 02/22/21 08:20 DC 02/22/21 06:09 Hydromorphone HCl (Dilaudid) 1.6 mg Q3HP PRN IV MODERATE/SEVERE PAIN (PS 5-10) 02/19/21 22:05 02/20/21 08:52 DC Ketorolac Tromethamine (ToRADol) 15 mg Q6HP PRN IV MODERATE PAIN (PS 5-7) 02/20/21 09:35 02/25/21 09:34 02/22/21 09:30 Ketorolac Tromethamine (ToRADol) 30 mg Q8HP PRN IV moderate pain 5-7 02/19/21 19:35 02/20/21 08:52 DC 02/19/21 20:40 Latanoprost (Xalatan 0.005% Op Soln) 1 drop QHS OU 02/19/21 21:00 02/21/21 20:37 Levothyroxine Sodium (Synthroid) 50 mcg QAM@0600 PO 02/20/21 06:00 02/20/21 08:49 DC 02/20/21 06:45 Lisinopril (Prinivil) 20 mg QHS PO 02/19/21 21:00 02/20/21 08:49 DC 02/19/21 21:00 Lisinopril (Prinivil) 40 mg QAM PO 02/20/21 09:00 02/20/21 08:49 DC 02/20/21 08:15 Magnesium Hydroxide (Milk Of Magnesia) 30 ml DAILY PRN PO CONSTIPATION 02/19/21 19:30 02/20/21 08:49 DC Metoprolol Succinate (TopROL XL) 75 mg DAILY PO 02/20/21 09:00 02/20/21 08:49 DC 02/20/21 08:16 Omeprazole (PriLOSEC) 40 mg DAILY PO 02/20/21 09:00 02/20/21 08:49 DC 02/20/21 08:14 Ondansetron HCl (ZOFRAN INJection) 8 mg Q4HP PRN IV NAUSEA OR VOMITING 02/19/21 19:20 02/21/21 10:26 Pantoprazole Sodium (Protonix) 40 mg Q24H IV 02/20/21 09:00 02/22/21 08:37 Potassium Chloride 10 meq/ IV Miscellaneous Supplies 100 ml @ 100 mls/hr Q1H IV 02/20/21 10:00 02/20/21 14:59 DC 02/20/21 14:00 Potassium Chloride 10 meq/ IV Miscellaneous Supplies 100 ml @ 100 mls/hr Q1H IV 02/21/21 11:00 02/21/21 14:59 DC 02/21/21 15:59 Senna (Senokot) 2 tab DAILY PO 02/22/21 09:00 Sodium Chloride 1,000 ml @ 100 mls/hr Q10H IV 02/20/21 00:05 02/22/21 08:20 DC 02/21/21 23:35 Sodium Chloride 1,000 ml @ 150 mls/hr Q6H40M IV 02/19/21 18:51 02/19/21 22:49 DC 02/19/21 20:40 Sumatriptan Succinate (Imitrex) 100 mg Q2H PRN PO HEADACHE 02/19/21 19:30 02/20/21 08:49 DC Trazodone HCl (Desyrel) 100 mg QHS PO 02/19/21 21:00 02/20/21 08:49 DC 02/19/21 23:13 Vitamin E (Vitamin E) 400 units DAILY PO 02/20/21 09:00 02/20/21 08:49 DC 02/20/21 08:14 Allergies Coded Allergies: Penicillins (Verified Allergy, Intermediate, HIVES, 03/19/19) morphine (Verified Allergy, Intermediate, ITCHING, 03/19/19) tetracycline (Verified Allergy, Intermediate, HIVES, 03/19/19) Sulfa (Sulfonamide Antibiotics) (Verified Allergy, Unknown, HIVES, 03/25/19) erythromycin base (Verified Allergy, Unknown, HIVES, 03/25/19) Monae Laws MD Feb 22, 2021 12:51
--- NOTE | 2021-02-22 14:09 | REP ---
INDICATION: left hip pain/upper leg. COMPARISON: Abdomen/pelvis CT dated 10/27/2020. TECHNIQUE: CT of the left hip without IV contrast. FINDINGS: Mineralization is normal. The joint space is unremarkable. There is no fracture or dislocation. There are no calcifications or foreign bodies. There are no soft tissue fluid collections or inflammatory changes. There is a 1 cm density in the super acetabular left iliac wing on image 6, unchanged from the prior study. This could represent a bone island or possibly a blastic metastasis. Depending on clinical findings consider radionuclide bone scan or MRI for further evaluation of this finding. IMPRESSION: Essentially negative CT study of the left hip 1. 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 Consider radionuclide bone scan or MRI for follow-up. The <Electronically signed by Bebeto Darling > 02/22/21 [id number]
[2021-02-22] MEDS: ASPIRIN 81MG ENTERIC TABLET PO SCH (14:24)
[2021-02-22] MEDS: SENNA 8.6 MG TAB (SENOKOT) PO SCH (14:25)
[2021-02-22] MEDS: ATORVASTATIN 20 MG TAB PO SCH (14:25)
[2021-02-22] MEDS: METOPROLOL SUCC *XL* 25MG TAB (TopROL *XL*) PO SCH (14:29)
[2021-02-22] MEDS: DULoxetine 30 MG CAP (CYMBALTA) PO SCH (14:30)
[2021-02-22] MEDS: LEVOTHYROXINE 50MCG TABLET (0.05MG) PO SCH (14:32)
[2021-02-22] MEDS: lisinopriL 40 MG TAB PO SCH (14:32)
[2021-02-22] MEDS: DOCUSATE SODIUM 100MG CAPSULE PO SCH ×2 (14:32→20:50)
[2021-02-22] MEDS ORDERED: FUROSEMIDE 40MG/4ML VIAL (J1940) IV ONE (17:20)
[2021-02-22] MEDS ORDERED: **hydrALAZINE HCL** 25 MG TAB PO ONE (17:20)
[2021-02-22] MEDS ORDERED: PILL CUTTER 1 EACH XX PRN (17:30)
[2021-02-22] MEDS: traZODone 100 MG TAB PO SCH (20:49)
[2021-02-22] MEDS: LATANOPROST 0.005% OPHTH SOLN 2.5 ML OU SCH (20:49)
[2021-02-22] MEDS: diltiaZEM **CD** 180 MG CAP PO SCH (20:55)
[2021-02-22] MEDS ORDERED: ACETAMINOPHEN TAB 650MG DOSE (2X325MG) PO ONE (22:50)
[2021-02-23 03:00] VITALS: BP 172/85
[2021-02-23] MEDS: LEVOTHYROXINE 50MCG TABLET (0.05MG) PO SCH (06:43)
[2021-02-23 07:43] LABS: HEMATOCRIT 36.1 % (36.0-47.0); HEMOGLOBIN 11.9 g/dl (12.0-15.5); MEAN CORPUSCULAR HEMOGLOBIN 31.1 pg (27.0-33.0); MEAN CORPUSCULAR VOLUME 94.3 fl (80.0-96.0); PLATELET COUNT, AUTOMATED 145 10^3/uL (150-450); RED BLOOD COUNT 3.83 10^6/uL (4.00-5.40); WHITE BLOOD COUNT 3.8 10^3/uL (4.0-10.0)
[2021-02-23 07:52] LABS: INR 0.96
[2021-02-23 08:00] VITALS: BP 166/79
[2021-02-23 08:04] LABS: BLOOD UREA NITROGEN 12 MG/DL (7-18); CALCIUM LEVEL 8.7 MG/DL (8.8-10.2); CARBON DIOXIDE LEVEL 32 MEQ/L (21-32); CHLORIDE LEVEL 104 MEQ/L (98-107); CREATININE FOR GFR 0.77 MG/DL (0.55-1.30); GLOMERULAR FILTRATION RATE > 60.0 (>39); GLUCOSE, FASTING 100 MG/DL (70-100); MAGNESIUM LEVEL 1.9 MG/DL (1.8-2.4); POTASSIUM SERUM 3.3 MEQ/L (3.5-5.1); SODIUM LEVEL 143 MEQ/L (136-145)
--- NOTE | 2021-02-23 08:24 | IPN ---
PROGRESS NOTE DATE: 02/21/2021 SUBJECTIVE: The patient clinically has had some decreased NG-tube output. She still has pain so it is hard to tell with her whether this is radiating from her back or hip or whether this is abdominal pain but with distraction her abdominal pain continues to improve on a daily basis. She has had some flatus without bowel movements and x-rays yesterday reveal that there is contrast in the ascending colon and there was no significant distention. Her white count has dropped to normal at this time. OBJECTIVE: Her abdomen is less distended it is softer, still has some discomfort on the left hand side of the abdomen, extremities are warm and well-perfused. IMPRESSION AND PLAN: Patient has resolved/resolving small bowel obstruction. Will clamp the NG-tube and see how she does with this. If she is doing well overnight or tolerates it for the next 24 hours will discontinue it. From my standpoint, given the x-ray results as well as the decreased NG-tube output it appears that she probably has already resolved her partial bowel obstruction but will go slowly with things and see how she does.
--- NOTE | 2021-02-23 08:24 | IPN ---
PROGRESS NOTE DATE: 02/22/2021 SUBJECTIVE: The patient has done well with the NG-tube decompression overnight, however she still complains of some discomfort and pain. She still has some flatus and x-rays were reordered given her discomfort issues and reveals essentially a normal study. OBJECTIVE: Her physical exam reveals progression of her improvement with decreased abdominal distention, decreased tenderness and pain. IMPRESSION/PLAN: Patient seems to have resolved her small bowel obstruction. Will discontinue the NG-tube, start her on a clear liquid diet, advance as tolerated, and see how she is doing in the morning. If she is doing okay from a surgical standpoint she can be discharged although it sounds as though her chronic pain issues may be more of an issue that may delay her discharge.
--- NOTE | 2021-02-23 08:33 | IPN ---
PROGRESS NOTE DATE: 02/23/2021 SUBJECTIVE: The patient's white count continues to be normalizing and she has been afebrile. She has been complaining of less abdominal pain and now it seems as though it is mostly her hip/leg that is causing the majority of her pain. From her standpoint, she has been tolerating a regular diet without nausea, without vomiting and has had some continued flatus. OBJECTIVE: Her abdomen is soft, nondistended, mildly tender on the left hand side as it has been previously without guarding and without rebound. IMPRESSION/PLAN: Patient has resolved her small bowel obstruction and can follow-up on a p.r.n. basis with myself or Dr. Whitten. I do feel that she is an individual that warrants a discussion of possible diagnostic laparoscopy with possible lysis of adhesions given her recurrent episodes of this bowel obstruction. She understands and will contact our office and follow-up with us in a couple of weeks.
[2021-02-23] MEDS: DOCUSATE SODIUM 100MG CAPSULE PO SCH ×2 (08:47→21:54)
[2021-02-23] MEDS: SENNA 8.6 MG TAB (SENOKOT) PO SCH (08:47)
[2021-02-23] MEDS: ATORVASTATIN 20 MG TAB PO SCH (08:48)
[2021-02-23] MEDS: DULoxetine 30 MG CAP (CYMBALTA) PO SCH (08:48)
[2021-02-23] MEDS: lisinopriL 40 MG TAB PO SCH (08:48)
[2021-02-23] MEDS: diltiaZEM **CD** 180 MG CAP PO SCH ×2 (08:49→21:55)
[2021-02-23] MEDS: METOPROLOL SUCC *XL* 25MG TAB (TopROL *XL*) PO SCH (08:50)
[2021-02-23] MEDS: HEPARIN SOD (PORCINE) 5000UNITS/ML 1ML VIAL/SYRINGE SC SCH ×2 (08:54→21:53)
[2021-02-23] MEDS: PANTOPRAZOLE 40MG VIAL (C9113 PER 1) IV SCH (10:45)
[2021-02-23] MEDS: KETOROLAC 30 MG/ML 1ML VIAL IV PRN ×2 (10:46→17:04)
--- NOTE | 2021-02-23 12:16 | IPNPDOC ---
Date Seen The patient was seen on 02/23/21. Progress Note SUBJECTIVE: Tolerating diet well, no abdominal pain. Per surgery, no additional treatment needed. Abnormal CT of L hip showing bone island vs. blastic metastatic lesion?, f/u MRI of hip which will not be done until tonight. BP better controlled this AM but high overnight. Denies chest pain, SOB, fevers, chills, n/v.d. OBJECTIVE: PHYSICAL EXAMINATION: VITAL SIGNS: See Below GENERAL APPEARANCE: Appears uncomfortable in bed, AAOx 3 HEENT: No mass or lesion. EOMI. No scleral icterus. Nares patent. NG tube in place, secured CARDIOVASCULAR: Regular rate, rhythm. No murmurs, rubs gallops LUNGS: Clear to auscultation. No wheezing, rales, rhonchi ABDOMEN: nontender, BS present in four quadrants. soft. No organomegaly MUSCULOSKELETAL: No joint deformity noted, able to laterally rotate left hip without pain today EXTREMITIES: No peripheral edema. No clubbing, cyanosis. Pulses present in lower ext NEUROLOGICAL: CN 2-12 intact. No focal deficits PSYCHIATRIC: Mood and affectappropriate LABORATORY DATA: See below. 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 Consider radionuclide bone scan or MRI for follow-up. The ABd XR 02/22/21: No current radiographic evidence of small bowel obstruction. AbdXR 02/20/21: Nonspecific bowel gas pattern. NG tube tip is in satisfactory position beneath the left hemidiaphragm. No free subdiaphragmatic air. B/l hip XR: No acute radiographic findings. CT Abd/pelvis: 1. Recurrent proximal to mid small bowel obstruction with dilated loops of small bowel in the left abdomen, small amount of interloop fluid as well as interloop fat stranding, and some segments with fecal material suggesting stasis. Transition point appears to be in the left lower abdomen. This could be from adhesions, although closed loop obstruction is not excluded. 2. Narrowed segment of mid to distal transverse colon near the transition point in the small bowel, but no significant upstream obstruction. 3. Prior ventral abdominal wall hernia repair, with residual broad mouth rectus diastasis abdominal wall hernia. 4. Gastric distension with collapsed duodenum. This may represent gastroparesis or partial gastric outlet obstruction. 5. Simple cysts in the kidneys. Some of the lesions are too small to characterize, but are unchanged and statistically most likely cysts. No further imaging follow-up necessary ADDENDUM REPORT 1 Additional findings for the bones and joints section: Sclerotic lesion at the T12 vertebral body with ill-defined margins posterior inferiorly and mixed lytic and sclerotic lesion abutting the endplate at the inferior aspect of L2 and L3 unchanged persistent large predominantly lucent lesion occupying the L3 vertebral body with vertical bands of sclerosis typical of a vertebral hemangioma, unchanged. This again appears slightly expansile along the posterior margin. Persistent mild anterior compression deformity of T11, unchanged. All of these findings are stable MICROBIOLOGY: Please see below. ASSESSMENT: This is a 75 year old female with PMH of several abdominal surgeries and previous SBO admitted for recurrent SBO. PLAN: L Hip pain, acute on chronic. Hx of fibromyalgia, no recent trauma -R/o bone lesion, refer to CT hip above -F/u MRI left hip -If needed after MRI hip, involve consultation service. If neg, discharge home to f/u with PCP -Pain control SBO- resolved -tolerating diet well -Had BM, passing gas -C/w bowel regimen, encourage hydration COPD -Stable, will continue patient's at home oxygen of 2L at night [place] - oxygen at night, as stated HTN -PO lisinopril, metoprolol, hctz Dyslipidemia -Atorvastatin, asa Hypothyroidism -Levothyroxine Depression -Cymbalta, trazodone Hx migraines -Sumatriptan q2h prn GI px -PPI DVT prophylaxis - heparin DISPOSITION: Encourage ambulation. Plan is d/c home if MRI neg. VS, I&O, 24H, Fishbone Vital Signs/I&O Vital Signs Date Time Temp Pulse Resp B/P (MAP) Pulse Ox O2 Delivery O2 Flow Rate FiO2 02/23/21 09:00 2.0 02/23/21 08:50 61 166/79 02/23/21 08:00 97.8 17 99 Room Air I&O- Last 24 Hours up to 6 AM 02/23/21 05:59 Intake Total 2780 ml Output Total 2750 ml Balance 30 ml Laboratory Data 24H LABS Laboratory Tests 2 02/23/21 07:17: Nucleated Red Blood Cells % (auto) 0.0, Prothrombin Time 13.0, Prothromb Time International Ratio 0.96, Anion Gap 7L, Glomerular Filtration Rate > 60.0, Calcium Level 8.7L, Magnesium Level 1.9 CBC/BMP Laboratory Tests 02/23/21 07:17 Current Medications Current Medications Medications (Trade) Dose Ordered Sig/Roberto Route PRN Reason Start Time Stop Time Status Last Admin Dose Admin Acetaminophen (Tylenol Tab) 650 mg Q4H PRN PO PAIN OR FEVER 02/19/21 19:30 02/20/21 08:49 DC Acetaminophen/ Hydrocodone Bitart ([place], Anexsia 5/325) 1 tab Q6HP PRN PO severe pain 8-10 02/19/21 19:35 02/20/21 08:49 DC Al Hydrox/Mg Hydrox/Simethicone (Mylanta) 30 ml DAILY PRN PO DYSPEPSIA 02/19/21 19:30 02/20/21 08:49 DC Aspirin (Ecotrin) 81 mg DAILY PO 02/20/21 09:00 02/20/21 08:49 DC 02/20/21 08:15 Aspirin (Ecotrin) 81 mg DAILY PO 02/23/21 09:00 02/22/21 14:24 Atorvastatin Calcium (Lipitor) 80 mg DAILY PO 02/20/21 09:00 02/20/21 08:49 DC 02/20/21 08:14 Atorvastatin Calcium (Lipitor) 80 mg DAILY PO 02/22/21 09:00 02/23/21 08:48 Dextrose (Dextrose 50%) 25 ml ASDIRECTED PRN IV SEE LABEL COMMENTS 02/22/21 08:20 Dextrose/Sodium Chloride 1,000 ml @ 100 mls/hr Q10H IV 02/22/21 08:20 02/22/21 16:52 DC 02/22/21 08:37 Diatrizoate Meglum/ Diatrizoate Sod (Gastrografin) 10 ml Q30M PO 02/19/21 16:00 02/19/21 16:31 DC 02/19/21 17:13 Diltiazem HCl (Cardizem Cd) 180 mg BID PO 02/19/21 21:00 02/20/21 08:49 DC 02/20/21 08:16 Diltiazem HCl (Cardizem Cd) 180 mg BID PO 02/22/21 21:00 02/23/21 08:49 Docusate Sodium (Colace) 100 mg BID PO 02/19/21 21:00 02/20/21 08:49 DC 02/20/21 08:15 Docusate Sodium (Colace) 200 mg BID PO 02/22/21 09:00 02/23/21 08:47 Duloxetine HCl (Cymbalta) 60 mg DAILY PO 02/20/21 09:00 02/20/21 08:49 DC 02/20/21 08:15 Duloxetine HCl (Cymbalta) 60 mg DAILY PO 02/22/21 09:00 02/23/21 08:48 Ferrous Sulfate (Ferrous Sulfate) 325 mg DAILY PO 02/20/21 09:00 02/20/21 08:49 DC 02/20/21 08:15 Glucagon (Glucagon) 1 mg ASDIRECTED PRN SC SEE LABEL COMMENTS 02/22/21 08:20 Glucose (Glucose) 16 GM ASDIRECTED PRN PO SEE LABEL COMMENTS 02/22/21 08:20 Heparin Sodium (Porcine) (Heparin) 5,000 units Q12H SC 02/19/21 21:00 02/23/21 08:54 Home Med (Med Rec Complete!) ASDIRECTED XX 02/19/21 19:10 02/19/21 19:09 DC Hydrochlorothiazide (Hydrodiuril) 12.5 mg MoWeFr@0900 PO 02/21/21 09:00 02/20/21 08:52 DC Hydromorphone HCl (Dilaudid) 1 mg Q3HP PRN IV SEVERE PAIN (PS 8-10) 02/19/21 22:05 02/22/21 08:20 DC 02/22/21 06:09 Hydromorphone HCl (Dilaudid) 1.6 mg Q3HP PRN IV MODERATE/SEVERE PAIN (PS 5-10) 02/19/21 22:05 02/20/21 08:52 DC Ketorolac Tromethamine (ToRADol) 15 mg Q6HP PRN IV MODERATE PAIN (PS 5-7) 02/20/21 09:35 02/25/21 09:34 02/23/21 10:46 Ketorolac Tromethamine (ToRADol) 30 mg Q8HP PRN IV moderate pain 5-7 02/19/21 19:35 02/20/21 08:52 DC 02/19/21 20:40 Latanoprost (Xalatan 0.005% Op Soln) 1 drop QHS OU 02/19/21 21:00 02/22/21 20:49 Levothyroxine Sodium (Synthroid) 50 mcg DAILY@06 PO 02/22/21 06:00 02/23/21 06:43 Levothyroxine Sodium (Synthroid) 50 mcg QAM@0600 PO 02/20/21 06:00 02/20/21 08:49 DC 02/20/21 06:45 Lisinopril (Prinivil) 20 mg QHS PO 02/19/21 21:00 02/20/21 08:49 DC 02/19/21 21:00 Lisinopril (Prinivil) 20 mg QHS PO 02/22/21 21:00 02/22/21 20:53 Lisinopril (Prinivil) 40 mg DAILY PO 02/22/21 09:00 02/23/21 08:48 Lisinopril (Prinivil) 40 mg QAM PO 02/20/21 09:00 02/20/21 08:49 DC 02/20/21 08:15 Magnesium Hydroxide (Milk Of Magnesia) 30 ml DAILY PRN PO CONSTIPATION 02/19/21 19:30 02/20/21 08:49 DC Metoprolol Succinate (TopROL XL) 75 mg DAILY PO 02/20/21 09:00 02/20/21 08:49 DC 02/20/21 08:16 Metoprolol Succinate (TopROL XL) 75 mg DAILY PO 02/22/21 09:00 02/23/21 08:50 Omeprazole (PriLOSEC) 40 mg DAILY PO 02/20/21 09:00 02/20/21 08:49 DC 02/20/21 08:14 Ondansetron HCl (ZOFRAN INJection) 8 mg Q4HP PRN IV NAUSEA OR VOMITING 02/19/21 19:20 02/21/21 10:26 Pantoprazole Sodium (Protonix) 40 mg Q24H IV 02/20/21 09:00 02/23/21 10:45 Potassium Chloride 10 meq/ IV Miscellaneous Supplies 100 ml @ 100 mls/hr Q1H IV 02/20/21 10:00 02/20/21 14:59 DC 02/20/21 14:00 Potassium Chloride 10 meq/ IV Miscellaneous Supplies 100 ml @ 100 mls/hr Q1H IV 02/21/21 11:00 02/21/21 14:59 DC 02/21/21 15:59 Senna (Senokot) 2 tab DAILY PO 02/22/21 09:00 02/23/21 08:47 Sodium Chloride 1,000 ml @ 100 mls/hr Q10H IV 02/20/21 00:05 02/22/21 08:20 DC 02/21/21 23:35 Sodium Chloride 1,000 ml @ 150 mls/hr Q6H40M IV 02/19/21 18:51 02/19/21 22:49 DC 02/19/21 20:40 Sumatriptan Succinate (Imitrex) 100 mg DAILYPRN PRN PO SEE PROTOCOL 02/22/21 12:40 Sumatriptan Succinate (Imitrex) 100 mg Q2H PRN PO HEADACHE 02/19/21 19:30 02/20/21 08:49 DC Trazodone HCl (Desyrel) 100 mg QHS PO 02/19/21 21:00 02/20/21 08:49 DC 02/19/21 23:13 Trazodone HCl (Desyrel) 100 mg QHS PO 02/22/21 21:00 02/22/21 20:49 Vitamin E (Vitamin E) 400 units DAILY PO 02/20/21 09:00 02/20/21 08:49 DC 02/20/21 08:14 Allergies Coded Allergies: Penicillins (Verified Allergy, Intermediate, HIVES, 03/19/19) morphine (Verified Allergy, Intermediate, ITCHING, 03/19/19) tetracycline (Verified Allergy, Intermediate, HIVES, 03/19/19) Sulfa (Sulfonamide Antibiotics) (Verified Allergy, Unknown, HIVES, 03/25/19) erythromycin base (Verified Allergy, Unknown, HIVES, 03/25/19) Monae Laws MD Feb 23, 2021 12:15
[2021-02-23 16:00] VITALS: BP 164/78
[2021-02-23] MEDS ORDERED: PROHANCE 279.3MG/ML 5ML VIAL As Ordered ONE (20:15)
[2021-02-23] MEDS ORDERED: PROHANCE 279.3MG/ML 15ML VIAL As Ordered ONE (20:16)
[2021-02-23 21:00] VITALS: BP 188/81
--- NOTE | 2021-02-23 21:41 | REPVR ---
PROCEDURE INFORMATION: Exam: MR Left Lower Extremity Joint Without and With Contrast; Hip Exam date and time: 02/23/2021 8:24 PM Age: 75 years old Clinical indication: Abnormal findings; Abnormal imaging study; CT a/p 02/19, also CT hip 02/22; Additional info: R/O blastic process in supra-acetabular left iliac fossa TECHNIQUE: Imaging protocol: MR of the Left lower extremity joint without and with contrast. Exam focused on the hip. Contrast material: PROHANCE; Contrast volume: 20 ml; Contrast route: INTRAVENOUS (IV); COMPARISON: 1. CT-Hip WITHOUT CONTRAST 02/22/2021 1:[address] ABD/PEL W/IV CONTRAST ONLY 10/27/2020 10:14:[address] ABD/PEL W/IV ORAL CONTRAST 02/19/2021 5:28:[address] Chest without contrast 04/16/2019 5:40:59 PM FINDINGS: Bones and cartilage: There is a 1 cm T1 dark, T2 dark lesion in the left iliac bone just above the left acetabulum, which is stable compared to the prior CT left hip on 02/22/[address] abdomen and pelvis on 10/27/2020. No abnormally enhancing bony lesion is noted. There is no fracture or dislocation. No arthropathy involving the left hip is noted. Joint spaces: There are small bilateral hip joint effusions. Labrum: No evidence for a labral tear. Bursae: There is no evidence for trochanteric or iliopsoas bursitis. Periarticular cysts: None. TENDONS: Tendons of iliopsoas group: Intact. Tendons of medial compartment of thigh: Intact. Tendons of lateral rotators of hip: Intact. Tendons of gluteal group: Intact. Tendons of posterior compartment of thigh: Intact. Muscles: The muscles are intact. Soft tissues: Unremarkable. No soft tissue fluid collection or mass is noted. Bowel: The imaged loops of small and large bowel are unremarkable. The bowel was not fully imaged. Bladder: The partially distended urinary bladder is unremarkable. IMPRESSION: 1 cm sclerotic lesion in the left iliac bone just above the left acetabulum, which is stable compared to the prior CT left hip on 02/22/[address] abdomen and pelvis on 10/27/2020, and likely represents a bone island. An osteoblastic metastasis is felt to be less likely. Electronically signed by: Calos Rosa 02/23/2021 21:41:47 PM
[2021-02-23] MEDS: LATANOPROST 0.005% OPHTH SOLN 2.5 ML OU SCH (21:53)
[2021-02-23] MEDS: traZODone 100 MG TAB PO SCH (21:54)
[2021-02-23 21:55] VITALS: BP 189/81
[2021-02-24] VITALS: BP 168/80
[2021-02-24] MEDS: KETOROLAC 30 MG/ML 1ML VIAL IV PRN ×2 (04:10→10:56)
[2021-02-24] MEDS: LEVOTHYROXINE 50MCG TABLET (0.05MG) PO SCH (06:19)
[2021-02-24] MEDS ORDERED: ACET1TAB55 PO (07:21)
[2021-02-24 07:38] LABS: HEMATOCRIT 34.5 % (36.0-47.0); HEMOGLOBIN 11.5 g/dl (12.0-15.5); MEAN CORPUSCULAR HEMOGLOBIN 31.6 pg (27.0-33.0); MEAN CORPUSCULAR HGB CONC 33.3 g/dl (32.0-36.5); MEAN CORPUSCULAR VOLUME 94.8 fl (80.0-96.0); PLATELET COUNT, AUTOMATED 153 10^3/uL (150-450); RED BLOOD COUNT 3.64 10^6/uL (4.00-5.40); WHITE BLOOD COUNT 4.4 10^3/uL (4.0-10.0)
[2021-02-24 07:56] LABS: BLOOD UREA NITROGEN 15 MG/DL (7-18); CALCIUM LEVEL 8.8 MG/DL (8.8-10.2); CARBON DIOXIDE LEVEL 32 MEQ/L (21-32); CHLORIDE LEVEL 105 MEQ/L (98-107); CREATININE FOR GFR 0.83 MG/DL (0.55-1.30); GLOMERULAR FILTRATION RATE > 60.0 (>39); GLUCOSE, FASTING 123 MG/DL (70-100); MAGNESIUM LEVEL 1.7 MG/DL (1.8-2.4); POTASSIUM SERUM 3.3 MEQ/L (3.5-5.1); SODIUM LEVEL 142 MEQ/L (136-145)
[2021-02-24 08:00] VITALS: BP 152/70
[2021-02-24 08:04] LABS: INR 0.91; PROTHROMBIN TIME 12.5 SECONDS (12.5-14.3)
[2021-02-24] MEDS: PANTOPRAZOLE 40MG VIAL (C9113 PER 1) IV SCH (08:57)
[2021-02-24] MEDS: SENNA 8.6 MG TAB (SENOKOT) PO SCH ×2 (08:57→09:00)
[2021-02-24] MEDS: HEPARIN SOD (PORCINE) 5000UNITS/ML 1ML VIAL/SYRINGE SC SCH (08:57)
[2021-02-24] MEDS: lisinopriL 40 MG TAB PO SCH (08:58)
[2021-02-24] MEDS: DULoxetine 30 MG CAP (CYMBALTA) PO SCH (08:58)
[2021-02-24] MEDS: METOPROLOL SUCC *XL* 25MG TAB (TopROL *XL*) PO SCH (08:58)
[2021-02-24] MEDS: diltiaZEM **CD** 180 MG CAP PO SCH (08:59)
[2021-02-24] MEDS: ASPIRIN 81MG ENTERIC TABLET PO SCH (08:59)
[2021-02-24] MEDS: DOCUSATE SODIUM 100MG CAPSULE PO SCH (08:59)
[2021-02-24] MEDS: ATORVASTATIN 20 MG TAB PO SCH (08:59)
--- NOTE | 2021-02-24 11:59 | DS.PDOC ---
Discharge Summary General Date of Admission Feb 20, 2021 at 11:04 Date of Discharge 02/24/21 Attending Physician: Monae Laws MD Discharge Summary HISTORY OF PRESENT ILLNESS: This is a 75 year old white female with a pmh of COPD, VINCENZO, GERD, HTN, CKD and very distant etoh disorder, who presents after developing acute onset abdominal pain mainly in her epigastrum that radiates to her suprapubic region, but is sore everywhere. Patient states that yesterday she felt fine and had regular bowel movements, no diarrhea, melena. Patient states that she has had a recent hernia repair in [place] where she also suffered a small bowel obstruction, and said since this felt similar, she wanted to come to the ED for evaluation. Patient states that on top of the abdominal pain, she is experiencing nausea and has had two episodes of non-bloody emesis. Patient denies fever, chills, chest pain, sob, dysuria, dizziness, lightheadedness. Patient also complains of acute onset left hip pain that radiates down her leg. Patient states that she has had episodes of this pain in the past but is concerned because it is happening at the same time as her current issues. Patient thinks the pain may come from her back but is not normal for her and states that the pain is not subsiding. Denies paresthesias. Patient was admitted for further treatment of SBO, surgery consulted. HOSPITAL COURSE: Patient remained NPO with NG tube to IS for several days while inpatient. She began to pass gas and later had BM. Repeat imaging showed improvement and patient's NG tube was removed. Her diet was advanced and she tolerated it well. On 02/23/21 she was cleared by surgery. Due to severe left hip/leg pain, additional studies of left hip were done. CT left hip could not r/o bone island vs. bone metastasis? She was sent for MRI of left hip on 02/23/21 which showed likely bone island 1 cm sclerotic lesion in the left iliac bone just above the left acetabulum, which is stable compared to the prior CT left hip on 02/22/[address] abdomen and pelvis on 10/27/2020, and likely represents a bone island. An osteoblastic metastasis was felt to be less likely. On 02/24 she was discharged home to f/u with PCP, recommended orthopedic surgery referral as o/p to further look into cause of left hip pain. PAST MEDICAL HISTORY: COPD, VINCENZO, GERD, HTN, CKD and very distant etoh disorder PAST SURGICAL HISTORY: Hernia repair Colon resection Appendectomy Hysterectomy Unspecified back surgery Left knee total arthroplasty SOCIAL HISTORY: Tobacco use:[Former] ETOH: [Distant hx of etoh abuse, states she has had maybe one beer in the past year] Illicit drug use: [Denies] FAMILY HISTORY: Mother: Gastric ca DISCHARGE MEDS: Please see below PHYSICAL EXAMINATION: VITAL SIGNS: See Below GENERAL APPEARANCE: resting comfortable in bed, NAD, AAOx 3 HEENT: No mass or lesion. EOMI. No scleral icterus. Nares patent. NG tube in place, secured CARDIOVASCULAR: Regular rate, rhythm. No murmurs, rubs gallops LUNGS: Clear to auscultation. No wheezing, rales, rhonchi ABDOMEN: nontender, BS present in four quadrants. soft. No organomegaly MUSCULOSKELETAL: No joint deformity noted, able to laterally rotate left hip without pain EXTREMITIES: No peripheral edema. No clubbing, cyanosis. Pulses present in lower ext NEUROLOGICAL: CN 2-12 intact. No focal deficits PSYCHIATRIC: Mood and affect appropriate LABORATORY DATA: See below. IMAGING: MRI left hip: 1 cm sclerotic lesion in the left iliac bone just above the left acetabulum, which is stable compared to the prior CT left hip on 02/22/[address] abdomen and pelvis on 10/27/2020, and likely represents a bone island. An osteoblastic metastasis is felt to be less likely. CT left hip: There is a bone island versus blastic metastasis in the supra-acetabular left iliac wing. Consider radionuclide bone scan or MRI for follow-up. The ABd XR 02/22/21: No current radiographic evidence of small bowel obstruction. AbdXR 02/20/21: Nonspecific bowel gas pattern. NG tube tip is in satisfactory position beneath the left hemidiaphragm. No free subdiaphragmatic air. B/l hip XR: No acute radiographic findings. CT Abd/pelvis: 1. Recurrent proximal to mid small bowel obstruction with dilated loops of small bowel in the left abdomen, small amount of interloop fluid as well as interloop fat stranding, and some segments with fecal material suggesting stasis. Transition point appears to be in the left lower abdomen. This could be from adhesions, although closed loop obstruction is not excluded. 2. Narrowed segment of mid to distal transverse colon near the transition point in the small bowel, but no significant upstream obstruction. 3. Prior ventral abdominal wall hernia repair, with residual broad mouth rectus diastasis abdominal wall hernia. 4. Gastric distension with collapsed duodenum. This may represent gastroparesis or partial gastric outlet obstruction. 5. Simple cysts in the kidneys. Some of the lesions are too small to characterize, but are unchanged and statistically most likely cysts. No further imaging follow-up necessary ADDENDUM REPORT 1 Additional findings for the bones and joints section: Sclerotic lesion at the T12 vertebral body with ill-defined margins posterior inferiorly and mixed lytic and sclerotic lesion abutting the endplate at the inferior aspect of L2 and L3 unchanged persistent large predominantly lucent lesion occupying the L3 vertebral body with vertical bands of sclerosis typical of a vertebral hemangioma, unchanged. This again appears slightly expansile along the posterior margin. Persistent mild anterior compression deformity of T11, unchanged. All of these findings are stable MICROBIOLOGY: Please see below. ASSESSMENT: This is a 75 year old female with PMH of several abdominal surgeries and previous SBO admitted for recurrent SBO. PLAN: L Hip pain, acute on chronic. Hx of fibromyalgia, no recent trauma -Bone island seen on MRI hip -Would recommend f/u with PCP, orthopedic surgeon referral as o/p for further evaluation SBO- resolved -tolerating diet well -Had BM, passing gas -C/w bowel regimen, encourage hydration COPD -Stable, will continue patient's at home oxygen of 2L at night VINCENZO -stable HTN -PO lisinopril, metoprolol, hctz Dyslipidemia -Atorvastatin, asa Hypothyroidism -Levothyroxine Depression -Cymbalta, trazodone Hx migraines -Sumatriptan GI px -PPI DISPOSITION: D/c home with f/u with PCP, recommending ortho referral as o/p if pain continues TIME SPENT ON DISCHARGE: 35 minutes. Vital Signs/I&Os Vital Signs Date Time Temp Pulse Resp B/P (MAP) Pulse Ox O2 Delivery O2 Flow Rate FiO2 02/24/21 08:00 97.5 60 18 152/70 (97) 95 Room Air 02/24/21 00:00 2.0 I&O- Last 24 Hours up to 6 AM 02/24/21 06:00 Intake Total 1400 ml Output Total 750 ml Balance 650 ml Laboratory Data Labs 24H Laboratory Tests 2 02/24/21 07:02: Nucleated Red Blood Cells % (auto) 0.0, Prothrombin Time 12.5, Prothromb Time International Ratio 0.91, Anion Gap 5L, Glomerular Filtration Rate > 60.0, Calcium Level 8.8, Magnesium Level 1.7L CBC/BMP Laboratory Tests 02/24/21 07:02 Discharge Medications Scheduled Aspirin (Aspirin EC) 81 Mg Tablet.dr, 81 MG PO DAILY, (Reported) Atorvastatin Calcium (Atorvastatin Calcium) 80 Mg Tab, 80 MG PO DAILY, (Reported) Diltiazem Hcl (Diltiazem 24Hr ER) 180 Mg Cap.er.24h, 180 MG PO BID, (Reported) Docusate Sodium (Docusate Sodium) 100 Mg Capsule, 200 MG PO DAILY, (Reported) Duloxetine Hcl (Cymbalta) 60 Mg Cap, 60 MG PO DAILY, (Reported) Ferrous Sulfate (Iron) 325 Mg Tablet, 325 MG PO DAILY, (Reported) Hydrochlorothiazide (Hydrochlorothiazide) 12.5 Mg Tab, 12.5 MG PO 3XW, (Reported) FRIDAY, FRIDAY, AND FRIDAY Latanoprost (Xalatan) 0.005% 2.5ML Drops, 1 DROP OU QHS, (Reported) Levothyroxine Sodium (Levothyroxine Sodium) 50 Mcg Tablet, 50 MCG PO QAM, (Reported) Lisinopril (Lisinopril) 20 Mg Tab, 20 MG PO QHS, (Reported) Lisinopril (Lisinopril) 20 Mg Tablet, 40 MG PO QAM, (Reported) Metoprolol Succinate (Metoprolol Succinate) 50 Mg Tab.er.24h, 75 MG PO DAILY, (Reported) Omeprazole (Omeprazole) 40 Mg Cap, 40 MG PO DAILY, (Reported) Potassium Gluconate (Potassium) 99 Mg Tablet, 99 MG PO DAILY, (Reported) Trazodone HCl (Trazodone HCl) 100 Mg Tablet, 100 MG PO QHS, (Reported) Vitamin E (Dl,Tocopheryl Acet) (Vitamin E) 400 Unit Capsule, 400 UNIT PO DAILY, (Reported) Scheduled PRN Acetaminophen (Acetaminophen) 325 Mg Tablet, 650 MG PO Q6HP PRN for PAIN OR FEVER Sumatriptan Succinate (Sumatriptan Succinate) 100 Mg Tab, 100 MG PO PRN PRN for HEADACHE, (Reported) Allergies Coded Allergies: Penicillins (Verified Allergy, Intermediate, HIVES, 03/19/19) morphine (Verified Allergy, Intermediate, ITCHING, 03/19/19) tetracycline (Verified Allergy, Intermediate, HIVES, 03/19/19) Sulfa (Sulfonamide Antibiotics) (Verified Allergy, Unknown, HIVES, 03/25/19) erythromycin base (Verified Allergy, Unknown, HIVES, 03/25/19) Monae Laws MD Feb 24, 2021 11:58
== END 2021-02-24 11:27 | disposition home or self-care (01) | DRG 390 ==
LOC: M ED 14:47 → M ED INP 14:48 → ENRESERV 21:48 → M MSPAV 22:47 → M MS5PR 22:55 → OBSVTOIN 02-20 11:04 → M PED 02-20 16:32
PROVIDERS: ADMIT Family Medicine; ATTEND Internal Medicine
DX: K56.609 Unspecified intestinal obstruction, unspecified as to partial versus complete obstruction (principal); J44.9 Chronic obstructive pulmonary disease, unspecified; G47.33 Obstructive sleep apnea (adult) (pediatric); K21.9 Gastro-esophageal reflux disease without esophagitis; I12.9 Hypertensive chronic kidney disease with stage 1 through stage 4 chronic kidney disease, or unspecified chronic kidney disease; N18.9 Chronic kidney disease, unspecified; M25.552 Pain in left hip; E03.9 Hypothyroidism, unspecified; F32.9 Major depressive disorder, single episode, unspecified; F10.11 Alcohol abuse, in remission; Z96.652 Presence of left artificial knee joint; Z90.49 Acquired absence of other specified parts of digestive tract; Z98.890 Other specified postprocedural states; Z79.82 Long term (current) use of aspirin; Z79.899 Other long term (current) drug therapy; Z88.0 Allergy status to penicillin; Z88.1 Allergy status to other antibiotic agents; Z88.2 Allergy status to sulfonamides; Z88.5 Allergy status to narcotic agent; Z88.8 Allergy status to other drugs, medicaments and biological substances

== ENCOUNTER → 2021-02-27 | Outpatient (CLI) | payer MEDICARE ==
[~2021-02-27] MED LIST changes: +ACET1TAB55 PO; +DOCU100C17 PO; +IRON15CH PO; +IRON65TA2 PO; +TRAZ-257 PO
--- NOTE | 2021-02-27 16:03 | REP ---
INDICATION: PAIN IN LEFT. COMPARISON: None TECHNIQUE: Four views FINDINGS: There is a total knee prosthetic device in place. Although the bones are somewhat generally demineralized no kaden periprosthetic lucencies are identifiable. There is no evidence of an acute fracture, dislocation, or subluxation, however, the patellofemoral joint appears somewhat asymmetric on the sunrise view. IMPRESSION: There is no evidence of an acute fracture or kaden periprosthetic lucency. Standing [place] view as described above. Correlate clinically for patellofemoral disorder. <Electronically signed by Jose Ba > 02/27/21 1600
== END ==
LOC: M SOG 15:15
PROVIDERS: ATTEND Orthopaedic Surgery Sports Medicine
DX: M25.562 Pain in left knee (principal)

== ENCOUNTER → 2021-03-19 | Outpatient (CLI) | payer MEDICARE ==
[~2021-03-19] MED LIST changes: +ISOVUE-300 61% 50ML VIAL As Ordered ONE; +LIDOCAINE 1% MDV 20ML VIAL As Ordered ONE; +methylPREDNISolone SUSP 40MG/ML 1ML VIAL (DEPO MEDROL) As Ordered ONE
--- NOTE | 2021-03-19 16:36 | REP ---
INDICATION: OSTEOARTHRITIS LEFT HIP. COMPARISON: None TECHNIQUE: The procedure was performed by APRIL Grajeda, under the direct supervision of Dr. Valero. The benefits and risks of the procedure were explained to the patient, and an informed consent was obtained. Directly prior to the start of the procedure, a formal time-out was completed in the procedure room. The left femoral neck joint space was localized using fluoroscopic guidance. The skin was prepped and draped in a sterile fashion. Approximately 5 mL of 1% Lidocaine 10 mg/ml was used as a local anesthetic. Using fluoroscopic guidance, a #22 gauge spinal needle was inserted and advanced into the left femoral neck joint space. Approximately 1 mL of Isovue 300 was injected to verify placement. Seven mL of a solution containing 5 mL 1% lidocaine 10 mg/ml and 2 mL Depo-Medrol 40 milligrams/milliliter was injected into the joint space. The needle was removed and hemostasis was achieved. FINDINGS: The patient tolerated the procedure well and there were no immediate complications. IMPRESSION: 1. Fluoroscopic guided left intra-articular joint injection. 0.2 minutes of fluoroscopy time was utilized for this procedure. Some fluoroscopic images are performed with last image hold technology. These images require no additional radiation. <Electronically signed by Nela Salter > 03/19/21 [id number] <Electronically signed by Bebeto Valero > 03/19/21 [id number]
== END ==
LOC: M RADPRO 11:25
PROVIDERS: ATTEND Orthopaedic Surgery Sports Medicine
DX: M16.12 Unilateral primary osteoarthritis, left hip (principal); Z88.0 Allergy status to penicillin; Z88.1 Allergy status to other antibiotic agents; Z88.2 Allergy status to sulfonamides; Z88.5 Allergy status to narcotic agent
CPT/HCPCS: 20610; 77002; J1030; Q9967

== ENCOUNTER 2021-05-02 17:16 | Emergency (ER) | payer MEDICARE ==
[~2021-05-02] VITALS: Ht 170.2 cm; Wt 81.8 kg
[~2021-05-02 17:16] MED LIST changes: -HM P99TA PO; -ISOVUE-300 61% 50ML VIAL As Ordered ONE; -LIDOCAINE 1% MDV 20ML VIAL As Ordered ONE; +POTA99TA14 PO; -methylPREDNISolone SUSP 40MG/ML 1ML VIAL (DEPO MEDROL) As Ordered ONE
[2021-05-02] MEDS ORDERED: SPIR-10 PO (18:51)
[2021-05-02] MEDS ORDERED: POTASSIUM CHLORIDE 10 MEQ SR TABLET PO ONE (18:55)
[2021-05-02] MEDS ORDERED: SPIRONOLACTONE 12.5MG PER 1/2 TABLET PO STA (18:57)
[2021-05-02 20:00] VITALS: BP 174/90
--- NOTE | 2021-05-03 08:18 | ECGEPIP ---
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
== END 2021-05-02 20:10 | disposition home or self-care (01) ==
LOC: M ED 17:16
DX: I10 Essential (primary) hypertension (principal); R00.1 Bradycardia, unspecified; G47.30 Sleep apnea, unspecified; N18.30 Chronic kidney disease, stage 3 unspecified; Z87.891 Personal history of nicotine dependence; Z79.82 Long term (current) use of aspirin; Z79.899 Other long term (current) drug therapy; Z88.0 Allergy status to penicillin; Z88.2 Allergy status to sulfonamides; Z88.1 Allergy status to other antibiotic agents; Z88.5 Allergy status to narcotic agent

== ENCOUNTER 2021-06-17 11:47 | Emergency (ER) | payer MEDICARE ==
[~2021-06-17] VITALS: Ht 170.2 cm; Wt 86.4 kg
[~2021-06-17 11:47] MED LIST changes: +OMEP40CA4 PO; -OMEP40CA97 PO; +SPIR-10 PO
[2021-06-17] MEDS ORDERED: ONDANSETRON 4MG/2ML VIAL IV ONE (12:00)
[2021-06-17] MEDS ORDERED: fentaNYL 100 MCG/2 ML INJECTION (J3010) IV PRN (12:00)
[2021-06-17] MEDS ORDERED: NS 1,000 ML IV SCH (12:00)
[2021-06-17 12:27] LABS: BASO % 0.3 % (0.0-1.0); EOS # 0.2 10^3/uL (0.0-0.5); EOS % 1.7 % (0.0-3.0); HEMATOCRIT 44.1 % (36.0-47.0); HEMOGLOBIN 14.4 g/dl (12.0-15.5); LYMPH # 1.2 10^3/uL (1.5-5.0); LYMPH % 8.4 % (24.0-44.0); MEAN CORPUSCULAR HGB CONC 32.7 g/dl (32.0-36.5); MONO % 6.9 % (2.0-8.0); NEUTROPHILS # 11.9 10^3/uL (1.5-8.5); NEUTROPHILS % 82.2 % (36.0-66.0); PLATELET COUNT, AUTOMATED 235 10^3/uL (150-450); WHITE BLOOD COUNT 14.4 10^3/uL (4.0-10.0)
[2021-06-17 12:53] LABS: ALBUMIN 4.6 GM/DL (3.2-5.2); BILIRUBIN,DIRECT 0.1 MG/DL (0.0-0.2); BILIRUBIN,TOTAL 0.5 MG/DL (0.2-1.0); TOTAL PROTEIN 7.5 GM/DL (6.4-8.2)
[2021-06-17] MEDS ORDERED: CART180C3 (13:44)
[2021-06-17] MEDS ORDERED: IRON27TA2 PO (13:44)
[2021-06-17] MEDS ORDERED: ISOVUE-370 76% 100ML VIAL As Ordered ONE (13:55)
--- NOTE | 2021-06-17 14:44 | REP ---
INDICATION: abdpain. COMPARISON: None. TECHNIQUE: Imaging protocol: Computed tomography of the abdomen and pelvis with contrast. Contiguous axial projection images were obtained through the abdomen and pelvis. 2D sagittal and coronal reconstructions were performed. Radiation optimization: All CT scans at this facility use at least one of these dose optimization techniques: automated exposure control; mA and/or kV adjustment per patient size (includes targeted exams where dose is matched to clinical indication); or iterative reconstruction. Contrast material: ISOVUE 370; Contrast volume: 100 ml; Contrast route: INTRAVENOUS (IV). FINDINGS: Heart and lung bases: There is minimal bibasilar atelectasis. There are no pleural effusions. The heart size is normal. There is no pericardial effusion. Liver: Normal. Gallbladder: Normal. Spleen: Normal. Pancreas: Normal Adrenal glands: Normal. Kidneys/bladder: There are benign cortical cysts in both kidneys. The urinary bladder has a normal unenhanced appearance. Pelvic structures: The uterus is surgically absent. The ovaries are not identified. There is no free fluid the pelvis. There is no pelvic or inguinal lymphadenopathy. GI tract: There is a small hiatal hernia. There has been surgical resection of portions of the transverse and descending portions of the colon. There is an apparent side to side, colo colic anastomosis in the left lower quadrant. There is stool throughout the colon. There is a normal appendix is demonstrated. There is no significant colonic diverticular disease. Abdominal wall and mesentery: Status post omentectomy. There has been repair of a midline ventral hernia. There is a laparotomy scar. There are no abdominal wall defects. There is no mesenteric or retroperitoneal lymphadenopathy. Abdominal aorta and vascular structures: There is calcific vascular disease of the abdominal aorta. The inferior vena cava and portal venous system are normal. Bony structures: There are multiple hemangiomas within the visualized thoracolumbar vertebral bodies, the largest at L3. There is mild compression of the superior endplate of L5. There is moderate anterior wedging of T11. There is degenerative disc disease, L2-3 through L5-S1 with narrowing of the disc spaces and marginal osteophytes. The SI joints and hips are unremarkable. There is a benign bone island in the left iliac wing. IMPRESSION: 1.. Status post partial colectomy. There is a normal appearing colocolic anastomosis in the left lower quadrant. 2. There is a small hiatal hernia. 3. Status post omentectomy. There is been repair of a midline ventral hernia. 4. 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 5. Other findings as noted. <Electronically signed by Salvador Esteves > 06/17/21 [id number]
[2021-06-17 17:00] VITALS: BP 128/74
--- NOTE | 2021-06-18 19:42 | ECGEPIP ---
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
== END 2021-06-17 17:14 | disposition home or self-care (01) ==
LOC: EDSEX 11:47 → M ED 11:47 → EDBD 11:47 → M ED 17:14
DX: R10.9 Unspecified abdominal pain (principal); R11.2 Nausea with vomiting, unspecified; I10 Essential (primary) hypertension; N18.30 Chronic kidney disease, stage 3 unspecified; M79.7 Fibromyalgia; G89.29 Other chronic pain; G47.30 Sleep apnea, unspecified; Z90.49 Acquired absence of other specified parts of digestive tract; Z87.891 Personal history of nicotine dependence
CPT/HCPCS: 74177; 80047; 80076; 83690; 85025; 93005; 93041; 96361; 96374; 96375; 99285; J2405; J3010; Q9967

== ENCOUNTER → 2022-01-09 | Outpatient (CLI) | payer MEDICARE ==
[~2022-01-09] MED LIST changes: +CART180C3; -CYMB60CA3 PO; +CYMB60CA4 PO; +IRON27TA2 PO; -LEVO500T3 PO; +LEVO500T4 PO
== END ==
LOC: M WHC 10:34
PROVIDERS: ATTEND Specialist
DX: Z12.31 Encounter for screening mammogram for malignant neoplasm of breast (principal); R92.2 Inconclusive mammogram

== ENCOUNTER → 2022-02-12 | Outpatient (CLI) | payer MEDICARE ==
[~2022-02-12] MED LIST changes: -D31000TA2 PO; +VITA100093 PO
== END ==
LOC: M WUC 11:02
PROVIDERS: ATTEND Family Medicine
DX: M85.871 Other specified disorders of bone density and structure, right ankle and foot (principal); M25.471 Effusion, right ankle

== ENCOUNTER → 2022-07-17 | Outpatient (CLI) | payer MEDICARE ==
[~2022-07-17] MED LIST changes: +LEVO1TAB39 PO; -LEVO500T4 PO
== END ==
LOC: M SOG 07:59
PROVIDERS: ATTEND Orthopaedic Surgery Adult Reconstructive Orthopaedic Surgery
DX: M25.552 Pain in left hip (principal)

== ENCOUNTER → 2022-09-23 | Outpatient (CLI) | payer MEDICARE ==
[2022-09-23 12:46] LABS: BASO % 0.4 % (0.0-1.0); EOS # 0.3 10^3/uL (0.0-0.5); EOS % 5.8 % (0.0-3.0); HEMOGLOBIN 11.6 g/dl (12.0-15.5); LYMPH # 1.6 10^3/uL (1.5-5.0); LYMPH % 31.3 % (24.0-44.0); MEAN CORPUSCULAR HEMOGLOBIN 31.6 pg (27.0-33.0); MEAN CORPUSCULAR HGB CONC 31.4 g/dl (32.0-36.5); MEAN CORPUSCULAR VOLUME 100.8 fl (80.0-96.0); MONO # 0.5 10^3/uL (0.0-0.8); MONO % 9.2 % (2.0-8.0); NEUTROPHILS # 2.7 10^3/uL (1.5-8.5); NEUTROPHILS % 52.5 % (36.0-66.0); PLATELET COUNT, AUTOMATED 223 10^3/uL (150-450); RED BLOOD COUNT 3.67 10^6/uL (4.00-5.40); WHITE BLOOD COUNT 5.2 10^3/uL (4.0-10.0)
[2022-09-23 13:52] LABS: BILIRUBIN,TOTAL 0.4 MG/DL (0.2-1.0); CALCIUM LEVEL 9.4 MG/DL (8.8-10.2); CREATININE FOR GFR 1.28 MG/DL (0.55-1.30); GLOMERULAR FILTRATION RATE 43.2 (>39); POTASSIUM SERUM 5.1 MEQ/L (3.5-5.1); TOTAL PROTEIN 6.6 GM/DL (6.4-8.2)
== END ==
LOC: M WUC 11:26
PROVIDERS: ATTEND Family Medicine
DX: R42 Dizziness and giddiness (principal); R06.02 Shortness of breath

== ENCOUNTER → 2023-01-10 | Outpatient (CLI) | payer MEDICARE | LOC: M WHC 10:55 | PROVIDERS: ATTEND Family Medicine | DX: Z12.31 Encounter for screening mammogram for malignant neoplasm of breast (principal) ==

== ENCOUNTER → 2023-02-18 | Outpatient (REF) | payer MEDICARE ==
[2023-02-18 20:12] LABS: BILIRUBIN,DIRECT 0.1 MG/DL (<0.4); BILIRUBIN,TOTAL 0.3 MG/DL (0.3-1.2); CHOLESTEROL RISK RATIO 2.9 (<5); HDL CHOLESTEROL 51.3 MG/DL (>40); LDL CHOLESTEROL 80.3 MG/DL (<100); NON-HDL-C 97.7 MG/DL; THYROID STIMULATING HORMONE 2.58 uIU/ML (0.55-4.78); TOTAL PROTEIN 6.3 G/DL (5.7-8.2)
== END ==
LOC: M LAB REF 17:53
PROVIDERS: ATTEND Nurse Practitioner Family
DX: E78.2 Mixed hyperlipidemia (principal); Z79.899 Other long term (current) drug therapy; N18.32 Chronic kidney disease, stage 3b; R53.83 Other fatigue

== ENCOUNTER → 2023-03-13 | Outpatient (CLI) | payer MEDICARE | LOC: M SOG 08:08 | PROVIDERS: ATTEND Orthopaedic Surgery | DX: M16.12 Unilateral primary osteoarthritis, left hip (principal) ==

== ENCOUNTER → 2023-06-16 | Outpatient (CLI) | payer MEDICARE | LOC: M RAD 08:53 | PROVIDERS: ATTEND Nurse Practitioner Family | DX: I12.9 Hypertensive chronic kidney disease with stage 1 through stage 4 chronic kidney disease, or unspecified chronic kidney disease (principal); N18.9 Chronic kidney disease, unspecified; N28.1 Cyst of kidney, acquired ==

== ENCOUNTER 2023-07-21 21:24 | Emergency (ER) | payer MEDICARE ==
[~2023-07-21] VITALS: Ht 170.2 cm; Wt 85.7 kg
[~2023-07-21 21:24] MED LIST changes: -AMIT25TA17 PO; +AMIT25TA19 PO
[2023-07-21 22:36] LABS: BASO % 0.5 % (0.0-1.0); EOS # 0.7 10^3/uL (0.0-0.5); EOS % 9.4 % (0.0-3.0); HEMATOCRIT 38.6 % (36.0-47.0); HEMOGLOBIN 12.4 g/dl (12.0-15.5); LYMPH # 1.5 10^3/uL (1.5-5.0); LYMPH % 19.4 % (24.0-44.0); MEAN CORPUSCULAR HEMOGLOBIN 30.8 pg (27.0-33.0); MEAN CORPUSCULAR HGB CONC 32.1 g/dl (32.0-36.5); MEAN CORPUSCULAR VOLUME 95.8 fl (80.0-96.0); MONO # 0.7 10^3/uL (0.0-0.8); MONO % 8.2 % (2.0-8.0); NEUTROPHILS # 4.9 10^3/uL (1.5-8.5); NEUTROPHILS % 62.1 % (36.0-66.0); PLATELET COUNT, AUTOMATED 173 10^3/uL (150-450); RED BLOOD COUNT 4.03 10^6/uL (4.00-5.40); WHITE BLOOD COUNT 7.9 10^3/uL (4.0-10.0)
[2023-07-21 23:04] LABS: CALCIUM LEVEL 8.9 MG/DL (8.3-10.6); CREATININE FOR GFR 1.18 MG/DL (0.55-1.30); GLOMERULAR FILTRATION RATE 47.4 (>39); POTASSIUM SERUM 3.7 MMOL/L (3.5-5.1)
[2023-07-21] MEDS ORDERED: CEFDINIR 300 MG CAP (OMNICEF) PO ONE (23:10)
[2023-07-21] MEDS ORDERED: CEFD300C41 PO (23:22)
[2023-07-21 23:46] VITALS: BP 139/79; TEMP 96.9; O2SAT 97
== END 2023-07-21 23:49 | disposition home or self-care (01) ==
LOC: M ED 21:24
DX: N39.0 Urinary tract infection, site not specified (principal); R31.9 Hematuria, unspecified; I10 Essential (primary) hypertension; J44.9 Chronic obstructive pulmonary disease, unspecified; N18.30 Chronic kidney disease, stage 3 unspecified; Z88.0 Allergy status to penicillin; Z88.2 Allergy status to sulfonamides; Z88.5 Allergy status to narcotic agent; Z88.8 Allergy status to other drugs, medicaments and biological substances; Z79.82 Long term (current) use of aspirin; Z79.811 Long term (current) use of aromatase inhibitors; Z79.899 Other long term (current) drug therapy

== ENCOUNTER 2023-10-23 09:08 | Day surgery (SDC) | payer MEDICARE ==
[~2023-10-23] VITALS: Ht 170.2 cm; Wt 96.2 kg
[~2023-10-23 09:08] MED LIST changes: +CEFD1CAP9 PO; +DILT180C95 PO; +DIPH-435 PO; +DULO1CAP6 PO; +GABA600T4 PO; +HYDR-3490 PO; +LIDOCAINE 2% 100MG/5ML SDV (FOR ANES.) As Ordered ONE; +LISI10TA22 PO; +NS 1,000 ML IV ONE; +OMEP40CA5 PO; +SYNT50TA PO; +VITA100066 PO; +propofoL 200 MG/20 ML VIAL As Ordered ONE
[2023-10-23 10:19] VITALS: TEMP 96.1
[2023-10-23 10:40] VITALS: BP 101/56; O2SAT 95
== END 2023-10-23 10:43 | disposition home or self-care (01) ==
LOC: M OPP 09:08
PROVIDERS: ATTEND Surgery
DX: K62.5 Hemorrhage of anus and rectum (principal); G47.30 Sleep apnea, unspecified; Z87.891 Personal history of nicotine dependence; Z79.02 Long term (current) use of antithrombotics/antiplatelets; Z79.1 Long term (current) use of non-steroidal anti-inflammatories (NSAID); Z79.82 Long term (current) use of aspirin; Z79.83 Long term (current) use of bisphosphonates; Z79.890 Hormone replacement therapy; Z79.891 Long term (current) use of opiate analgesic; Z79.899 Other long term (current) drug therapy; Z88.0 Allergy status to penicillin; Z88.1 Allergy status to other antibiotic agents; Z88.2 Allergy status to sulfonamides; Z88.5 Allergy status to narcotic agent

== ENCOUNTER → 2024-02-27 | Outpatient (CLI) | payer MEDICARE ==
[~2024-02-27] MED LIST changes: -LIDOCAINE 2% 100MG/5ML SDV (FOR ANES.) As Ordered ONE; -NS 1,000 ML IV ONE; -propofoL 200 MG/20 ML VIAL As Ordered ONE
== END ==
LOC: M WHC 10:23
PROVIDERS: ATTEND Family Medicine
DX: Z12.31 Encounter for screening mammogram for malignant neoplasm of breast (principal); R92.323 Mammographic fibroglandular density, bilateral breasts

== ENCOUNTER → 2024-04-01 | Outpatient (CLI) | payer MEDICARE ==
[2024-04-01 17:04] LABS: BASO # 0.1 10^3/uL (0.0-0.2); EOS # 0.4 10^3/uL (0.0-0.5); EOS % 8.2 % (0.0-3.0); HEMATOCRIT 39.8 % (36.0-47.0); HEMOGLOBIN 12.9 g/dl (12.0-15.5); LYMPH # 1.3 10^3/uL (1.5-5.0); LYMPH % 26.4 % (24.0-44.0); MEAN CORPUSCULAR HEMOGLOBIN 30.9 pg (27.0-33.0); MEAN CORPUSCULAR HGB CONC 32.4 g/dl (32.0-36.5); MEAN CORPUSCULAR VOLUME 95.4 fl (80.0-96.0); MONO # 0.5 10^3/uL (0.0-0.8); MONO % 9.9 % (2.0-8.0); NEUTROPHILS # 2.7 10^3/uL (1.5-8.5); NEUTROPHILS % 53.9 % (36.0-66.0); PLATELET COUNT, AUTOMATED 194 10^3/uL (150-450); RED BLOOD COUNT 4.17 10^6/uL (4.00-5.40)
[2024-04-01 18:06] LABS: ERYTHROCYTE SEDIMENTATION RATE 14 mm/hr (0-30)
== END ==
LOC: M LAB 16:17
PROVIDERS: ATTEND Optometrist
DX: M31.6 Other giant cell arteritis (principal)

== ENCOUNTER → 2024-04-06 | Outpatient (CLI) | payer MEDICARE | LOC: M SOG 07:54 | PROVIDERS: ATTEND Orthopaedic Surgery | DX: M47.816 Spondylosis without myelopathy or radiculopathy, lumbar region (principal); M54.50 Low back pain, unspecified; M25.551 Pain in right hip; M25.552 Pain in left hip ==

== ENCOUNTER → 2024-04-21 | Outpatient (CLI) | payer MEDICARE | LOC: M PLAIMG 12:19 | PROVIDERS: ATTEND Orthopaedic Surgery | DX: M47.27 Other spondylosis with radiculopathy, lumbosacral region (principal); M47.816 Spondylosis without myelopathy or radiculopathy, lumbar region ==

== ENCOUNTER → 2024-06-09 | Outpatient (CLI) | payer MEDICARE | LOC: M SOG 07:52 | PROVIDERS: ATTEND Orthopaedic Surgery | DX: Z96.652 Presence of left artificial knee joint (principal); Z53.9 Procedure and treatment not carried out, unspecified reason ==

== ENCOUNTER → 2024-06-14 | Outpatient (CLI) | payer MEDICARE | LOC: M SOG 07:54 | PROVIDERS: ATTEND Orthopaedic Surgery | DX: M17.11 Unilateral primary osteoarthritis, right knee (principal); Z96.652 Presence of left artificial knee joint; T84.84XA Pain due to internal orthopedic prosthetic devices, implants and grafts, initial encounter; Y82.9 Unspecified medical devices associated with adverse incidents ==

== ENCOUNTER → 2024-06-14 | Outpatient (CLI) | payer MEDICARE ==
[2024-06-14 16:30] LABS: BASO # 0.1 10^3/uL (0.0-0.2); BASO % 0.8 % (0.0-1.0); EOS # 0.5 10^3/uL (0.0-0.5); EOS % 7.7 % (0.0-3.0); HEMATOCRIT 40.1 % (36.0-47.0); HEMOGLOBIN 12.8 g/dl (12.0-15.5); LYMPH # 1.6 10^3/uL (1.5-5.0); LYMPH % 24.1 % (24.0-44.0); MEAN CORPUSCULAR HEMOGLOBIN 31.1 pg (27.0-33.0); MEAN CORPUSCULAR HGB CONC 31.9 g/dl (32.0-36.5); MEAN CORPUSCULAR VOLUME 97.3 fl (80.0-96.0); MONO # 0.7 10^3/uL (0.0-0.8); MONO % 10.1 % (2.0-8.0); NEUTROPHILS # 3.7 10^3/uL (1.5-8.5); NEUTROPHILS % 56.2 % (36.0-66.0); PLATELET COUNT, AUTOMATED 189 10^3/uL (150-450); RED BLOOD COUNT 4.12 10^6/uL (4.00-5.40); WHITE BLOOD COUNT 6.5 10^3/uL (4.0-10.0)
[2024-06-14 16:47] LABS: ERYTHROCYTE SEDIMENTATION RATE 16 mm/hr (0-30)
== END ==
LOC: M WUC 12:37
PROVIDERS: ATTEND Orthopaedic Surgery
DX: T84.84XA Pain due to internal orthopedic prosthetic devices, implants and grafts, initial encounter (principal); Y82.9 Unspecified medical devices associated with adverse incidents

== ENCOUNTER → 2024-07-09 | Outpatient (CLI) | payer MEDICARE ==
[2024-07-09 12:30] LABS: ALBUMIN 3.8 G/DL (3.2-5.2); BILIRUBIN,TOTAL 0.6 MG/DL (0.3-1.2); CALCIUM LEVEL 9.4 MG/DL (8.3-10.6); CHOLESTEROL RISK RATIO 3.33 (<5); CREATININE FOR GFR 1.26 MG/DL (0.55-1.30); GLOMERULAR FILTRATION RATE 43.8 (>39); HDL CHOLESTEROL 53.1 MG/DL (>40); LDL CHOLESTEROL 97.9 MG/DL (<100); NON-HDL-C 123.9 MG/DL; TOTAL PROTEIN 6.5 G/DL (5.7-8.2)
[2024-07-09 12:31] LABS: THYROID STIMULATING HORMONE 3.394 uIU/ML (0.55-4.78)
== END ==
LOC: M LAB 11:30
PROVIDERS: ATTEND Family Medicine
DX: E03.9 Hypothyroidism, unspecified (principal); E78.5 Hyperlipidemia, unspecified

== ENCOUNTER → 2024-08-23 | Outpatient (CLI) | payer MEDICARE ==
[~2024-08-23] MED LIST changes: +GABA-1490 PO; -GABA600T4 PO
== END ==
LOC: M RAD 09:23
PROVIDERS: ATTEND Orthopaedic Surgery
DX: T84.84XA Pain due to internal orthopedic prosthetic devices, implants and grafts, initial encounter (principal); Y83.1 Surgical operation with implant of artificial internal device as the cause of abnormal reaction of the patient, or of later complication, without mention of misadventure at the time of the procedure; Z96.652 Presence of left artificial knee joint; M17.11 Unilateral primary osteoarthritis, right knee
CPT/HCPCS: 78315; A9503

== ENCOUNTER → 2024-09-06 | Outpatient (CLI) | payer MEDICARE | LOC: M RAD 09:08 | PROVIDERS: ATTEND Orthopaedic Surgery | DX: T84.84XA Pain due to internal orthopedic prosthetic devices, implants and grafts, initial encounter (principal); Y83.1 Surgical operation with implant of artificial internal device as the cause of abnormal reaction of the patient, or of later complication, without mention of misadventure at the time of the procedure; Z96.652 Presence of left artificial knee joint ==

== ENCOUNTER → 2025-03-03 | Outpatient (CLI) | payer MEDICARE | LOC: M WHC 12:34 | PROVIDERS: ATTEND Family Medicine | DX: Z12.31 Encounter for screening mammogram for malignant neoplasm of breast (principal) ==

== ENCOUNTER → 2025-07-20 | Outpatient (REF) | payer MEDICARE ==
[~2025-07-20] MED LIST changes: +LISI40TA10 PO; -LISI40TA4 PO
[2025-07-20 18:51] LABS: BASO # 0.0 10^3/uL (0.0-0.2); BASO % 0.6 % (0.0-1.0); EOS # 0.7 10^3/uL (0.0-0.5); EOS % 10.4 % (0.0-3.0); LYMPH # 1.6 10^3/uL (1.5-5.0); LYMPH % 23.3 % (24.0-44.0); MONO # 0.4 10^3/uL (0.0-0.8); MONO % 5.5 % (2.0-8.0); NEUTROPHILS # 4.2 10^3/uL (1.5-8.5); NEUTROPHILS % 60.1 % (36.0-66.0); PLATELET COUNT, AUTOMATED 207 10^3/uL (150-450)
[2025-07-20 18:57] LABS: ALT/SGPT 17.0 U/L (7.0-40); AST/SGOT 21.0 U/L (<34); CALCIUM LEVEL 9.7 MG/DL (8.3-10.6); CARBON DIOXIDE LEVEL 29.0 MMOL/L (20-31); CHLORIDE LEVEL 105.0 MMOL/L (98-107); CHOLESTEROL LEVEL 156.0 MG/DL (<200); CHOLESTEROL RISK RATIO 3.07 (<5); CREATININE FOR GFR 1.14 MG/DL (0.55-1.30); GLOMERULAR FILTRATION RATE 49.3 (>39); IRON (FE) 100.0 UG/DL (50-170); LDL CHOLESTEROL 79.4 MG/DL (<100); NON-HDL-C 105.2 MG/DL; PERCENT SATURATION 37.7 % (13.2-45.0); POTASSIUM SERUM 3.9 MMOL/L (3.5-5.1); SODIUM LEVEL 144.0 MMOL/L (136-145); TRIGLYCERIDES LEVEL 129.0 MG/DL (<150)
[2025-07-20 19:25] LABS: ESTIMATED AVERAGE GLUCOSE 114.0 MG/DL (60-110)
== END ==
LOC: M SFHCLERA 13:44
PROVIDERS: ATTEND Family Medicine
DX: Z00.00 Encounter for general adult medical examination without abnormal findings (principal); E78.5 Hyperlipidemia, unspecified; D50.9 Iron deficiency anemia, unspecified; K76.0 Fatty (change of) liver, not elsewhere classified; E03.9 Hypothyroidism, unspecified